=== PATIENT | female | born 1935 | race Caucasian/White ===

== ENCOUNTER 2017-07-25 17:35 | Inpatient (IN) | payer MEDICARE, OTHER ==
[~2017-07-25] VITALS: Ht 170.2 cm; Wt 87.2 kg
[~2017-07-25 17:35] MED LIST: ALENDRONATE SOD70 M1 PO; ALLOPURINOL100 MG PO; AMIODARONE HCL200 MG PO; AMIODARONE200 MG PO; AMLODIPINE BES2.5 MG PO; AMLODIPINE BESYL5 MG PO; AMOXICILLIN500 MG PO; APRESOLINE25 MG PO; ASCRIPTIN1 TA1; ASPIRIN81 M1 PO; B-COMPLEX1 CAP PO; CATAPRES0.1 MG PO; CLONIDINE0.2 MG PO; COREG12.5 MG PO; COUMADIN1 M1 PO; COUMADIN1 MG PO; COUMADIN2 MG PO; Carafate1 GM PO; Coumadin2 MG PO; DILTIAZEM HCL360 MG PO; DIOVAN320 MG PO; DOXYCYCLINE100 M2 PO; DOXYCYCLINE100 M3 PO; DUONEB 3 MG/3 ML3 M1 INH; EVISTA60 MG PO; FAMOTIDINE20 M1 PO; FEOSOL325 MG PO; FOSAMAX70 M1 PO; FUROSEMIDE40 MG PO; HYDRALAZINE HYD50 MG PO; IMDUR30 MG PO; ISOSORBIDE30 MG PO; KEFLEX500 MG PO; LASIX20 MG PO; LASIX40 MG PO; LEVAQUIN750 M1 PO; LISINOPRIL10 M1 PO; LISINOPRIL20 MG PO; LOPRESSOR50 MG PO; METOPROLOL SUCC50 M2 PO; NORVASC10 MG PO; NORVASC5 MG PO; Ondansetron4 MG PO; PRAVACHOL40 MG PO; PRAVASTATIN SOD80 MG PO; PREDNISONE10 MG PO; PREDNISONE20 MG PO; PROTONIX TR40 M1 PO; PROTONIX40 MG PO; ROBITUSSIN AC 110 ML PO; SUPER B COMPLE150 MG PO; SUPER B COMPLEX1 CAP PO; SUPER B-50 COM1 EAC1 PO; TOPROL XL50 MG PO; TOPROL-XL50 MG; TUMS PO; VITAMIN D PO; VITAMIN D-32000 UNI1 PO; VITAMIN D1000 IU PO; VITAMIN D2000 IU PO; WARFARIN2 MG PO; XANAX0.25 MG PO; ZESTRIL20 MG PO; ZOLOFT25 MG PO; ZYLOPRIM100 MG; [UNRECOGNIZED DRUG - OTHER]
[2017-07-25 17:55] VITALS: BP 185/75
[2017-07-25 18:03] LABS: BASO % 0.3 % (0.0-1.0); EOS # 0.1 10*3/uL (0.0-0.4); EOS % 1.4 % (1.0-4.0); HEMATOCRIT 35.2 % (37.0-47.0); HEMOGLOBIN 11.1 g/dl (12.0-16.0); LYMPH # 1.6 10*3/uL (1.3-4.4); LYMPH % 22.2 % (27.0-41.0); MEAN CELL VOLUME 94.4 fl (81.0-99.0); MEAN CORPUSCULAR HGB 29.8 pg (27.0-31.0); MEAN CORPUSCULAR HGB CONC 31.5 g/dl (33.0-37.0); MEAN PLATELET VOLUME 10.5 fl (9.6-12.3); MONO # 0.5 10*3/uL (0.1-1.0); MONO % 7.1 % (3.0-9.0); NEUT # 4.9 10*3/uL (2.3-7.9); NEUT % 68.4 % (47.0-73.0); PLATELET COUNT AUTOMATED 131 10*3/uL (130-400); RED BLOOD COUNT 3.73 10*6/uL (4.10-5.10); RED CELL DISTRI WIDTH 14.1 % (0-14.5); WHITE BLOOD COUNT 7.1 10*3/uL (4.8-10.8)
[2017-07-25 18:12] LABS: ACT PARTIAL THROMBO TIME 26.6 SECONDS (20.8-31.5); INTERNATIONAL NORM RATIO 1.3 (2.0-3.5)
[2017-07-25 18:20] VITALS: BP 190/75
[2017-07-25 18:23] LABS: ALBUMIN 3.3 gm/dl (3.1-4.5); CREATININE 1.34 mg/dL (0.55-1.02)
[2017-07-25 18:30] VITALS: BP 206/77
[2017-07-25 18:34] LABS: TOTAL PROTEIN 7.1 gm/dL (6.4-8.2); TROPONIN I 0.017 ng/ml (<0.045)
[2017-07-25 20:00] VITALS: BP 184/66
--- NOTE | 2017-07-25 20:00 | NUR ---
A 81, admitted to , under the services of ROBBIE Butcher DO with a diagnosis of CHEST PAIN W/ HIGH RISK FOR CARDIAC ETIOLOGY. Chief complaint is CHEST PAIN. Patient arrived via stretcher from ER. Monitor applied. Initial assessment completed. Vital signs taken and recorded. ROBBIE BUTCHER DO notified of admission to the unit. Orders received. See assessment for past medical history, medications and allergies. Patient and/or family oriented to unit. [facility] visitation policy reviewed. Clothing/patient valuable form completed. MEDICATIONS RECONCILLED VIA LIST PROVIDED BY PATIENT GONZALO LEMONS
--- NOTE | 2017-07-25 21:05 | NUR ---
DR. OROZCO CONTACTED IN REGARDS TO CRITICAL TROPONIN LEVEL.
--- NOTE | 2017-07-25 21:17 | NUR ---
DR. MUNSON CONTACTED IN REGARDS TO CARDIOLOGY CONSULT, SEE NEW ORDERS.
--- NOTE | 2017-07-25 22:35 | NUR ---
DR. SUE SERVICES CONTACTED FOR DR. MUNSON, AWAITING CALL BACK.
[2017-07-26] VITALS: BP 154/63
--- NOTE | 2017-07-26 00:38 | NUR ---
MESSAGE LEFT ON DR. MUNSON'S CELL PHONE, AWAITING CALL BACK.
--- NOTE | 2017-07-26 00:38 | NUR ---
DR. MUNSON ATTEMPTED TO BE CONTACTED AGAIN IN REGARDS TO CRITICAL TROPONIN LEVEL AND WEATHER OR NOT TO START HEPARIN DRIP, NO ANSWER. ANSWERING SERVICE STATED THAT WHEN THEY GET A HOLD OF HIM THEY WILL HAVE HIM CONTACT HOSPITAL.
--- NOTE | 2017-07-26 00:40 | NUR ---
DR. OROZCO CONTACTED IN REGARDS TO DR. MUNSON NOT ANSWERING AND CRITICAL TROPONIN OF 2.470, ORDERED TO START HEPARIN DRIP.
[2017-07-26 01:02] LABS: BASO % 0.4 % (0.0-1.0); EOS # 0.1 10*3/uL (0.0-0.4); EOS % 1.2 % (1.0-4.0); HEMATOCRIT 31.2 % (37.0-47.0); HEMOGLOBIN 9.9 g/dl (12.0-16.0); LYMPH # 1.6 10*3/uL (1.3-4.4); LYMPH % 22.2 % (27.0-41.0); MEAN CELL VOLUME 94.8 fl (81.0-99.0); MEAN CORPUSCULAR HGB 30.1 pg (27.0-31.0); MEAN CORPUSCULAR HGB CONC 31.7 g/dl (33.0-37.0); MEAN PLATELET VOLUME 10.8 fl (9.6-12.3); MONO # 0.5 10*3/uL (0.1-1.0); MONO % 7.2 % (3.0-9.0); NEUT % 68.7 % (47.0-73.0); PLATELET COUNT AUTOMATED 141 10*3/uL (130-400); RED BLOOD COUNT 3.29 10*6/uL (4.10-5.10); RED CELL DISTRI WIDTH 14.1 % (0-14.5); WHITE BLOOD COUNT 7.3 10*3/uL (4.8-10.8)
--- NOTE | 2017-07-26 01:07 | NUR ---
DR. MUNSON CALLED BACK AND MADE AWARE OF CRITICAL TROPONIN LEVELS, AND WEATHER OR NOT TO START HEPARIN DRIP. DR. MUNSON AGREES TO HEPARIN DRIP, NO NEW ORDERS.
[2017-07-26 01:13] LABS: ACT PARTIAL THROMBO TIME 27.7 SECONDS (20.8-31.5); INTERNATIONAL NORM RATIO 1.4 (2.0-3.5)
--- NOTE | 2017-07-26 04:28 | NUR ---
DR. MNUSON CONTACTED IN REGARDS TO CRITICAL TROPONIN LEVEL OF 3.240
[2017-07-26 06:54] LABS: BASO % 0.5 % (0.0-1.0); EOS # 0.1 10*3/uL (0.0-0.4); EOS % 1.5 % (1.0-4.0); HEMATOCRIT 29.9 % (37.0-47.0); HEMOGLOBIN 9.6 g/dl (12.0-16.0); LYMPH # 1.4 10*3/uL (1.3-4.4); LYMPH % 21.2 % (27.0-41.0); MEAN CELL VOLUME 93.7 fl (81.0-99.0); MEAN CORPUSCULAR HGB 30.1 pg (27.0-31.0); MEAN CORPUSCULAR HGB CONC 32.1 g/dl (33.0-37.0); MEAN PLATELET VOLUME 11.4 fl (9.6-12.3); MONO # 0.5 10*3/uL (0.1-1.0); MONO % 6.9 % (3.0-9.0); NEUT # 4.6 10*3/uL (2.3-7.9); NEUT % 69.4 % (47.0-73.0); PLATELET COUNT AUTOMATED 144 10*3/uL (130-400); RED BLOOD COUNT 3.19 10*6/uL (4.10-5.10); RED CELL DISTRI WIDTH 13.9 % (0-14.5); WHITE BLOOD COUNT 6.6 10*3/uL (4.8-10.8)
[2017-07-26 07:24] LABS: ALBUMIN 2.8 gm/dl (3.1-4.5); CREATININE 1.32 mg/dL (0.55-1.02); PHOSPHOROUS 3.2 mg/dL (2.5-4.9); POTASSIUM 3.9 mmol/L (3.5-5.1); TOTAL PROTEIN 6.2 gm/dL (6.4-8.2)
[2017-07-26 07:25] LABS: INTERNATIONAL NORM RATIO 1.4 (2.0-3.5)
[2017-07-26 07:30] LABS: FREE T4 1.52 ng/dl (0.76-1.46); THYROID STIM HORMONE (HS) 1.34 uIU/ml (0.358-4.75)
[2017-07-26 08:30] LABS: VITAMIN D, 25-HYDROXY 33.4 ng/mL (30-100)
== END 2017-07-26 06:55 | disposition short-term general hospital (02) | DRG 281 ==
LOC: ED 17:35 → EDHOLD 18:38 → 5E 18:38
PROVIDERS: Emergency Medicine; Family Medicine; ADMIT Emergency Medicine
DX: I21.4 Non-ST elevation (NSTEMI) myocardial infarction (principal); I13.2 Hypertensive heart and chronic kidney disease with heart failure and with stage 5 chronic kidney disease, or end stage renal disease; D68.59 Other primary thrombophilia; Z99.81 Dependence on supplemental oxygen; I48.0 Paroxysmal atrial fibrillation; N18.3 Chronic kidney disease, stage 3 (moderate); E83.41 Hypermagnesemia; I50.32 Chronic diastolic (congestive) heart failure; J44.9 Chronic obstructive pulmonary disease, unspecified; R27.0 Ataxia, unspecified; E78.5 Hyperlipidemia, unspecified; K21.9 Gastro-esophageal reflux disease without esophagitis; M1A.9XX0 Chronic gout, unspecified, without tophus (tophi); G47.33 Obstructive sleep apnea (adult) (pediatric); D64.9 Anemia, unspecified; M19.91 Primary osteoarthritis, unspecified site; F32.9 Major depressive disorder, single episode, unspecified; Z96.1 Presence of intraocular lens; M81.0 Age-related osteoporosis without current pathological fracture; Z51.5 Encounter for palliative care; Z66 Do not resuscitate; Z87.01 Personal history of pneumonia (recurrent); Z86.718 Personal history of other venous thrombosis and embolism; Z88.8 Allergy status to other drugs, medicaments and biological substances; Z79.899 Other long term (current) drug therapy; Z79.82 Long term (current) use of aspirin; Z90.49 Acquired absence of other specified parts of digestive tract; Z98.42 Cataract extraction status, left eye; Z98.41 Cataract extraction status, right eye; Z80.8 Family history of malignant neoplasm of other organs or systems; Z82.49 Family history of ischemic heart disease and other diseases of the circulatory system; Z83.3 Family history of diabetes mellitus; Z79.01 Long term (current) use of anticoagulants

== ENCOUNTER → 2017-09-11 | Outpatient (CLI) | payer MEDICARE, OTHER ==
[2017-09-11 11:04] LABS: ALBUMIN 3.2 gm/dl (3.1-4.5); CREATININE 1.38 mg/dL (0.55-1.02); POTASSIUM 4.2 mmol/L (3.5-5.1); TOTAL PROTEIN 6.7 gm/dL (6.4-8.2)
[2017-09-11 11:11] LABS: THYROID STIM HORMONE (HS) 1.6 uIU/ml (0.358-4.75)
== END | disposition home or self-care (01) ==
LOC: LAB 10:03
PROVIDERS: Internal Medicine Cardiovascular Disease
DX: Z51.81 Encounter for therapeutic drug level monitoring (principal); Z79.899 Other long term (current) drug therapy

== ENCOUNTER → 2017-10-10 | Outpatient (CLI) | payer MEDICARE, OTHER ==
--- NOTE | ~2017-10-10 | PF ---
[place], [place] PULMONARY FUNCTION TEST NAME: [facility] OWENS [facility] [id number] UNIT #: [id number] ROOM: DOCTOR: CHUCK SAUCEDA MD,DELILAH BIRTHDATE: [birth year] DOS: 10/11/2017 The testing was done by Dr. Salvatore Samuels. The test was done on 10/11/2017. HISTORY: The patient recorded 81-year-old female, height of 67 inches, weight 195 pounds. Testing was done for assessment of the long-term amiodarone use. The patient reported symptoms of dyspnea with exertion with productive cough. SPIROMETRY: The FVC was recorded as 1.10 liters at 38% predicted value, severely decreased. The FEV1 recorded at 0.87 liters, 40% predicted value, severely decreased 60% partial improvement occurred in postbronchodilator FEV1. Ratio of FEV1/FVC was recorded as 78%. The flow volume loop was suggestive of mild obstructive lung disease and restrictive lung disease was also suspected. The lung diffusion recorded at 28%, which was severely decreased. Lung volumes could not be performed by the patient. FINAL IMPRESSION: 1. The patient with severe reduction of the lung diffusion. Correlated to the patient's clinical history for any interstitial lung disease or other restrictive lung diseases for this patient or any parenchymal damage. 2. Mild reversible obstructive lung disease was also suspected for this patient as well such as bronchial asthma. DELILAH WOODS MD CM:PFREPORT:PULMONARY FUNCTION TEST 1028 1529 DELILAH SAUCEDA MD
== END | disposition home or self-care (01) ==
LOC: CP 12:11
DX: Z79.899 Other long term (current) drug therapy (principal)

== ENCOUNTER 2017-10-14 18:45 | Inpatient (IN) | payer MEDICARE, OTHER ==
[~2017-10-14] VITALS: Ht 170.1 cm; Wt 87.2 kg
[2017-10-14 18:49] VITALS: BP 200/87
[2017-10-14 19:17] LABS: BASO % 0.1 % (0.0-1.0); EOS % 0.4 % (1.0-4.0); HEMATOCRIT 33.2 % (37.0-47.0); HEMOGLOBIN 10.3 g/dl (12.0-16.0); LYMPH # 0.8 10*3/uL (1.3-4.4); LYMPH % 11.5 % (27.0-41.0); MEAN CORPUSCULAR HGB 28.9 pg (27.0-31.0); MEAN PLATELET VOLUME 10.6 fl (9.6-12.3); MONO # 0.4 10*3/uL (0.1-1.0); MONO % 5.9 % (3.0-9.0); NEUT # 5.5 10*3/uL (2.3-7.9); NEUT % 81.7 % (47.0-73.0); PLATELET COUNT AUTOMATED 142 10*3/uL (130-400); RED BLOOD COUNT 3.57 10*6/uL (4.10-5.10); WHITE BLOOD COUNT 6.8 10*3/uL (4.8-10.8)
[2017-10-14 19:34] LABS: ALBUMIN 3.3 gm/dl (3.1-4.5); CREATININE 1.5 mg/dL (0.55-1.02); POTASSIUM 4.5 mmol/L (3.5-5.1); TOTAL PROTEIN 6.8 gm/dL (6.4-8.2)
[2017-10-14 19:35] VITALS: BP 117/85
[2017-10-14 20:10] VITALS: BP 147/63
[2017-10-14 21:23] VITALS: BP 161/51
[2017-10-14 22:00] VITALS: BP 162/62
[2017-10-14 22:10] VITALS: BP 162/62
[2017-10-14] MEDS ORDERED: POTASSIUM CHLO10 ME5 PO (22:21)
[2017-10-14] MEDS ORDERED: TOPROL XL25 MG PO (22:22)
[2017-10-14] MEDS ORDERED: PLAVIX75 M1 PO (22:22)
[2017-10-14 22:40] LABS: INTERNATIONAL NORM RATIO 3.2 (2.0-3.5)
[2017-10-15] VITALS: BP 131/52
[2017-10-15 06:01] LABS: BASO % 0.4 % (0.0-1.0); EOS # 0.2 10*3/uL (0.0-0.4); HEMATOCRIT 30.6 % (37.0-47.0); HEMOGLOBIN 9.3 g/dl (12.0-16.0); LYMPH # 1.3 10*3/uL (1.3-4.4); LYMPH % 23.4 % (27.0-41.0); MEAN CELL VOLUME 93.9 fl (81.0-99.0); MEAN CORPUSCULAR HGB 28.5 pg (27.0-31.0); MEAN CORPUSCULAR HGB CONC 30.4 g/dl (33.0-37.0); MEAN PLATELET VOLUME 10.9 fl (9.6-12.3); MONO # 0.5 10*3/uL (0.1-1.0); MONO % 8.6 % (3.0-9.0); NEUT # 3.6 10*3/uL (2.3-7.9); NEUT % 64.2 % (47.0-73.0); PLATELET COUNT AUTOMATED 122 10*3/uL (130-400); RED BLOOD COUNT 3.26 10*6/uL (4.10-5.10); RED CELL DISTRI WIDTH 15.3 % (0-14.5); WHITE BLOOD COUNT 5.6 10*3/uL (4.8-10.8)
[2017-10-15 06:14] LABS: ALBUMIN 2.9 gm/dl (3.1-4.5); CREATININE 1.23 mg/dL (0.55-1.02); PHOSPHOROUS 3.4 mg/dL (2.5-4.9)
[2017-10-15 06:22] LABS: THYROID STIM HORMONE (HS) 0.899 uIU/ml (0.358-4.75)
[2017-10-15 06:26] LABS: INTERNATIONAL NORM RATIO 3.3 (2.0-3.5)
[2017-10-15 07:29] LABS: VITAMIN D, 25-HYDROXY 31.7 ng/mL (30-100)
[2017-10-15 08:00] VITALS: BP 144/53
[2017-10-15 12:00] VITALS: BP 155/50
[2017-10-15 16:00] VITALS: BP 147/63
[2017-10-15 20:00] VITALS: BP 118/48
[2017-10-16] VITALS: BP 153/57
[2017-10-16 07:30] LABS: BASO % 0.5 % (0.0-1.0); EOS # 0.2 10*3/uL (0.0-0.4); EOS % 2.5 % (1.0-4.0); HEMATOCRIT 32.3 % (37.0-47.0); HEMOGLOBIN 9.9 g/dl (12.0-16.0); LYMPH # 0.9 10*3/uL (1.3-4.4); LYMPH % 13.4 % (27.0-41.0); MEAN CELL VOLUME 95.3 fl (81.0-99.0); MEAN CORPUSCULAR HGB 29.2 pg (27.0-31.0); MEAN CORPUSCULAR HGB CONC 30.7 g/dl (33.0-37.0); MEAN PLATELET VOLUME 11.4 fl (9.6-12.3); MONO # 0.5 10*3/uL (0.1-1.0); MONO % 7.3 % (3.0-9.0); NEUT # 4.9 10*3/uL (2.3-7.9); PLATELET COUNT AUTOMATED 132 10*3/uL (130-400); RED BLOOD COUNT 3.39 10*6/uL (4.10-5.10); RED CELL DISTRI WIDTH 15.3 % (0-14.5); WHITE BLOOD COUNT 6.4 10*3/uL (4.8-10.8)
[2017-10-16 07:40] LABS: POTASSIUM 3.9 mmol/L (3.5-5.1)
[2017-10-16 07:52] LABS: ALBUMIN 2.9 gm/dl (3.1-4.5); CREATININE 1.35 mg/dL (0.55-1.02); TOTAL PROTEIN 6.4 gm/dL (6.4-8.2)
[2017-10-16 08:00] VITALS: BP 120/50; BP 156/55
[2017-10-16 12:00] VITALS: BP 143/47
[2017-10-16 16:00] VITALS: BP 139/55
[2017-10-16 20:05] VITALS: BP 110/44
[2017-10-17 00:02] VITALS: BP 115/58
[2017-10-17 00:13] VITALS: BP 139/50
[2017-10-17 08:00] VITALS: BP 160/98
[2017-10-17 12:00] VITALS: BP 149/56
[2017-10-17 12:02] LABS: INTERNATIONAL NORM RATIO 2.8 (2.0-3.5)
[2017-10-17 16:00] VITALS: BP 130/79
[2017-10-17 20:00] VITALS: BP 154/56
[2017-10-18] VITALS: BP 126/66
[2017-10-18 08:00] VITALS: BP 136/76
[2017-10-18 12:00] VITALS: BP 145/56
[2017-10-18 12:16] LABS: INTERNATIONAL NORM RATIO 2.2 (2.0-3.5)
[2017-10-18 16:00] VITALS: BP 125/62
[2017-10-18 17:00] VITALS: BP 124/64
[2017-10-18 20:00] VITALS: BP 125/52
[2017-10-19] VITALS: BP 125/54
[2017-10-19 08:00] VITALS: BP 162/66
[2017-10-19 12:00] VITALS: BP 126/48
[2017-10-19 14:00] VITALS: BP 118/48
[2017-10-19 20:00] VITALS: BP 138/55
[2017-10-20 06:57] LABS: INTERNATIONAL NORM RATIO 2.1 (2.0-3.5)
[2017-10-20 08:00] VITALS: BP 169/61
[2017-10-20 12:00] VITALS: BP 113/52; BP 145/52
[2017-10-20 16:00] VITALS: BP 144/60
[2017-10-20 20:00] VITALS: BP 131/50
[2017-10-21] VITALS: BP 151/61
[2017-10-21 07:26] LABS: INTERNATIONAL NORM RATIO 2.1 (2.0-3.5)
== END 2017-10-21 14:58 | disposition home health service (06) | DRG 552 ==
LOC: ED 18:45 → 5E 21:31 → EDHOLD 21:31 → 5E 21:45
PROVIDERS: Emergency Medicine Emergency Medical Services; Internal Medicine
DX: S32.020A Wedge compression fracture of second lumbar vertebra, initial encounter for closed fracture (principal); J96.11 Chronic respiratory failure with hypoxia; D68.59 Other primary thrombophilia; I48.0 Paroxysmal atrial fibrillation; E44.1 Mild protein-calorie malnutrition; N18.3 Chronic kidney disease, stage 3 (moderate); I13.0 Hypertensive heart and chronic kidney disease with heart failure and stage 1 through stage 4 chronic kidney disease, or unspecified chronic kidney disease; I50.32 Chronic diastolic (congestive) heart failure; M80.00XA Age-related osteoporosis with current pathological fracture, unspecified site, initial encounter for fracture; Z99.81 Dependence on supplemental oxygen; J43.9 Emphysema, unspecified; I16.0 Hypertensive urgency; R27.0 Ataxia, unspecified; K22.5 Diverticulum of esophagus, acquired; D64.9 Anemia, unspecified; Z66 Do not resuscitate; Z51.5 Encounter for palliative care; R73.9 Hyperglycemia, unspecified; R74.0 Nonspecific elevation of levels of transaminase and lactic acid dehydrogenase [LDH]; K21.9 Gastro-esophageal reflux disease without esophagitis; M19.90 Unspecified osteoarthritis, unspecified site; G47.33 Obstructive sleep apnea (adult) (pediatric); M10.9 Gout, unspecified; E78.5 Hyperlipidemia, unspecified; Z96.1 Presence of intraocular lens; I25.2 Old myocardial infarction; Z86.718 Personal history of other venous thrombosis and embolism; Z79.01 Long term (current) use of anticoagulants; Z79.82 Long term (current) use of aspirin; Z79.899 Other long term (current) drug therapy; Z98.42 Cataract extraction status, left eye; Z98.41 Cataract extraction status, right eye; Z68.31 Body mass index [BMI] 31.0-31.9, adult; X50.0XXA Overexertion from strenuous movement or load, initial encounter; Y93.89 Activity, other specified; Y92.091 Bathroom in other non-institutional residence as the place of occurrence of the external cause; Y99.8 Other external cause status; Z90.49 Acquired absence of other specified parts of digestive tract; Z88.8 Allergy status to other drugs, medicaments and biological substances; Z83.3 Family history of diabetes mellitus; Z82.49 Family history of ischemic heart disease and other diseases of the circulatory system; Z80.8 Family history of malignant neoplasm of other organs or systems

== ENCOUNTER → 2017-10-27 | Day surgery (SDC) | payer MEDICARE, OTHER ==
[2017-10-27] VITALS (12 sets, daily range): BP systolic 115–191; BP diastolic 55–90
[~2017-10-27] MED LIST changes: +PLAVIX75 M1 PO; +POTASSIUM CHLO10 ME5 PO; +TOPROL XL25 MG PO
[2017-10-27 07:44] LABS: HEMATOCRIT 32.9 % (37.0-47.0); HEMOGLOBIN 10.2 g/dl (12.0-16.0); MEAN CELL VOLUME 93.7 fl (81.0-99.0); MEAN CORPUSCULAR HGB 29.1 pg (27.0-31.0); MEAN PLATELET VOLUME 11.7 fl (9.6-12.3); RED BLOOD COUNT 3.51 10*6/uL (4.10-5.10); RED CELL DISTRI WIDTH 15.2 % (0-14.5); WHITE BLOOD COUNT 5.4 10*3/uL (4.8-10.8)
[2017-10-27 07:57] LABS: ACT PARTIAL THROMBO TIME 22.3 SECONDS (20.8-31.5); INTERNATIONAL NORM RATIO 1.2 (2.0-3.5)
== END | disposition home or self-care (01) ==
LOC: SDC 10-23 12:30 → EDSTATUS 10-23 12:30 → SDC 04:18
PROVIDERS: Internal Medicine Hospice and Palliative Medicine
DX: M48.56XA Collapsed vertebra, not elsewhere classified, lumbar region, initial encounter for fracture (principal); M81.0 Age-related osteoporosis without current pathological fracture; I48.2 Chronic atrial fibrillation; I25.10 Atherosclerotic heart disease of native coronary artery without angina pectoris; J44.9 Chronic obstructive pulmonary disease, unspecified; I11.0 Hypertensive heart disease with heart failure; I50.9 Heart failure, unspecified

== ENCOUNTER 2018-06-15 10:18 | Inpatient (IN) | payer MEDICARE, OTHER ==
[2018-06-15] VITALS (7 sets, daily range): BP systolic 118–160; BP diastolic 47–62
[~2018-06-15] VITALS: Ht 170.2 cm; Wt 80.9 kg
--- NOTE | ~2018-06-15 | EKG ---
[place], [place] ELECTROCARDIOGRAM REPORT NAME: ROCKY OWENS UNIT #: [id number] ROOM: 530 DOCTOR: CAREN DRAFT REPORT BIRTHDATE: [birth year] [facility] Test Date: 2018-06-16 Test Time: 11:58:52 Pat Name: ROCKY OWENS Department: Room: [facility] 1 Gender: F Tabulating Clerk: Christel Tejada : 1935 Requested By: ROSAS HUANG Order Number: [id number] Reading MD: Willi Morris MD Measurements Intervals [place] Rate: 69 P: -38 [place]: 183 QRS: -29 QRSD: 89 T: 49 QT: 423 QTc: 454 Interpretive Statements Sinus rhythm Borderline left axis deviation Baseline wander in lead(s) II,III,aVF Compared to ECG 06/16/2018 09:08:43 No significant changes Electronically Signed On 06-16-2018 10:07:38 PST by Willi Morris MD CM:EKGRPT:ELECTROCARDIOGRAM REPORT 1158 1007 ROSAS BEVERLY DRAFT REPORT ROSAS HUANG DO
--- NOTE | ~2018-06-15 | CON ---
[place], [place] REPORT OF CONSULTATION NAME: [facility]OCKY OWENS [facility] [id number] UNIT #: [id number] ROOM: 530 DOCTOR: BARBARA FELIPE MD BIRTHDATE: [birth year] DOS: 06/17/2018 HISTORY OF PRESENT ILLNESS: This is an 82-year-old [place] woman with history of coronary artery disease over a xghw-suh-[id number]-half ago, she had coronary stenting done. She also has significant aortic stenosis and carries a diagnosis of chronic kidney disease, dyslipidemia, GERD, essential hypertension, hypercoagulable state, chronic anemia; had NSTEMI, 1 stent was deployed; sleep apnea and uses oxygen at home. She also has osteoporosis, osteoarthritis and has Zenker's diverticulum. She has had a cholecystectomy and cataract surgery with lens implantation. She was admitted to the hospital 2 days ago because of right flank pain and some dizziness. She was seen by Dr. White, and I was asked to see her because her troponin level had been slightly increased. The patient has had anterior chest pressure and heaviness for about 2 months; she gets this when she is walking around in the house, and when she does have some weight loss physician she gets very short of breath, she has to sit down to ease her breathing and also to ease her chest heaviness. She has not had this feeling when she is just sitting, doing nothing. There have not been any palpitations. She had mild swelling in the legs and no orthopnea, no loss of consciousness. REVIEW OF SYSTEMS: No fever, chills or shivering. No cough. She has not noticed any blood in the stool, although I believe she had some hematuria at 1 time. HOME MEDICATIONS: Included Fosamax, amiodarone 200 mg daily, amlodipine 5 mg daily, aspirin 81 daily, clopidogrel 75 mg daily, furosemide 20 mg daily, hydralazine 25 mg b.i.d., Imdur 60 mg q.a.m., potassium chloride 10 mEq daily, pravastatin 40 daily, sertraline 25 mg daily, warfarin 2 mg alternating with 3 mg daily. SOCIAL HISTORY: She has never smoked cigarettes. No alcohol use. PHYSICAL EXAMINATION: GENERAL: A patient who is tall alert, oriented. She is comfortable. Her complexion is fine. VITAL SIGNS: Pulse is 76 and regular, blood pressure 159/52. NECK: JVP is normal. Systolic sounds in the neck are audible. CARDIOVASCULAR: There is no parasternal heave. Auscultation reveals grade 5/6 mid-to-late peaking systolic murmur over the aortic area and even a harsher murmur over the apex, which does not radiate laterally. A2 is audible, but diminished significantly in intensity. EXTREMITIES: She has no edema in lower extremities now. RESPIRATORY: She is not tachypneic. Percussion note is normal. Auscultation reveals moderately reduced breath sounds with lot of crackles in both lungs. ABDOMEN: This is vaguely tender in the lower part, but bowel sounds are normal. There is no guarding. [place], [place] REPORT OF CONSULTATION NAME: ROCKY OWENS UNIT #: [id number] ROOM: [facility] DOCTOR: BARBARA FELIPE MD BIRTHDATE: [birth year] IMAGING: ECG showed normal sinus rhythm with moderate left axis deviation. Mild ST segment depression in some chest leads. LABORATORY DATA: Troponin I level was 0.02 on admission and had gone up to 0.287, and has declined to 0.14. Hemoglobin 8 grams. BUN 25, creatinine 1.09. Potassium is 3.8. IMPRESSION AND PLAN: 1. Non-ST elevation acute myocardial infarction is highly likely in this patient with known coronary artery disease. She has had angina and exertional dyspnea for the last 2 months, and I strongly recommend a diagnostic heart cath and selective coronary angiogram. I discussed the procedure with her. I pointed out the risks and the benefits including CVA, IA, , hematoma, vascular injury, renal insufficiency. She and son understand, and would like to proceed. 2. Aortic stenosis is probably moderate to severe. Transthoracic echocardiogram will be done to quantitate the severity. 3. Moderate anemia is present. I discussed this with the resident, and the patient will be transferred to [facility] tomorrow morning for heart cath and possible PCI. I thank you for this consult. BARBARA FELIPE MD CM:CONSTR:REPORT OF CONSULTATION 1808 06/19/18 0619 interface
--- NOTE | ~2018-06-15 | EKG ---
[place], [place] ELECTROCARDIOGRAM REPORT NAME: ROCKY OWENS UNIT #: [id number] ROOM: 530 DOCTOR: CAREN DRAFT REPORT BIRTHDATE: [birth year] [facility] Test Date: 2018-06-16 Test Time: 09:08:43 Pat Name: ROCKY OWENS Department: Room: [facility] 1 Gender: F Manager Animal: Christel Tejada : 1935 Requested By: ROSAS HUANG Order Number: [id number] Reading MD: Willi Morris MD Measurements Intervals [place] Rate: 71 P: -13 [place]: 198 QRS: -23 QRSD: 90 T: 61 QT: 426 QTc: 463 Interpretive Statements Sinus rhythm Borderline left axis deviation Compared to ECG 06/15/2018 10:47:11 Left ventricular hypertrophy no longer present Electronically Signed On 06-16-2018 8:13:58 PST by Willi Morris MD CM:EKGRPT:ELECTROCARDIOGRAM REPORT 7 ROSAS BEVERLY DRAFT REPORT ROSAS HUANG DO
--- NOTE | ~2018-06-15 | EKG ---
[place], [place] ELECTROCARDIOGRAM REPORT NAME: ROCKY OWENS UNIT #: [id number] ROOM: 530 DOCTOR: CAREN DRAFT REPORT BIRTHDATE: [birth year] [facility] Test Date: 2018-06-15 Test Time: 10:47:11 Pat Name: ROCKY OWENS Department: Room: [facility] Gender: F Burlapper: Chelle Malone : 1935 Requested By: ROBBIE HIRSCH Order Number: [id number] Reading MD: Naveed Campos MD Measurements Intervals [place] Rate: 53 P: 12 PA: 182 QRS: -23 QRSD: 94 T: 52 QT: 476 QTc: 447 Interpretive Statements Sinus rhythm Left ventricular hypertrophy No previous ECG available for comparison Electronically Signed On 06-16-2018 4:17:06 PST by Naveed Campos MD CM:EKGRPT:ELECTROCARDIOGRAM REPORT 1047 0417 ROBBIE BEVERLY DRAFT REPORT ROBBIE HIRSCH DO
--- NOTE | ~2018-06-15 | EKG ---
[place], [place] ELECTROCARDIOGRAM REPORT NAME: ROCKY OWENS UNIT #: [id number] ROOM: 530 DOCTOR: CAREN DRAFT REPORT BIRTHDATE: [address] [facility] Test Date: 2018-06-17 Test Time: 04:36:48 Pat Name: ROCKY OWENS Department: 5E Room: [facility] 1 Gender: F Blanking Press Operator: Juan Francisco Chen : 1935 Requested By: BARBARA SAMUELS Order Number: [id number] Reading MD: Barbara Samuels MD Measurements Intervals [place] Rate: 79 P: -14 CT: 209 QRS: -34 QRSD: 95 T: 74 QT: 411 QTc: 472 Interpretive Statements Sinus rhythm Left axis deviation Minimal ST depression, lateral leads Compared to ECG 06/16/2018 11:58:52 ST (T wave) deviation now present Electronically Signed On 06-18-2018 14:34:09 PST by Barbara Samuels MD CM:EKGRPT:ELECTROCARDIOGRAM REPORT 0436 1434 BARBARA SAMUELS MD EPIPHANY DRAFT REPORT BARBARA SAMUELS MD
[2018-06-15 10:50] LABS: BASO % 0.3 % (0.0-1.0); EOS % 0.3 % (1.0-4.0); HEMATOCRIT 23.6 % (37.0-47.0); HEMOGLOBIN 7.3 g/dl (12.0-16.0); LYMPH # 0.7 10*3/uL (1.3-4.4); LYMPH % 9.4 % (27.0-41.0); MEAN CELL VOLUME 95.9 fl (81.0-99.0); MEAN CORPUSCULAR HGB 29.7 pg (27.0-31.0); MEAN CORPUSCULAR HGB CONC 30.9 g/dl (33.0-37.0); MEAN PLATELET VOLUME 10.6 fl (9.6-12.3); MONO # 0.7 10*3/uL (0.1-1.0); MONO % 9.1 % (3.0-9.0); NEUT # 5.9 10*3/uL (2.3-7.9); NEUT % 80.5 % (47.0-73.0); PLATELET COUNT AUTOMATED 132 10*3/uL (130-400); RED BLOOD COUNT 2.46 10*6/uL (4.10-5.10); RED CELL DISTRI WIDTH 15.9 % (0-14.5); WHITE BLOOD COUNT 7.4 10*3/uL (4.8-10.8)
[2018-06-15 11:04] LABS: ALBUMIN 2.8 gm/dl (3.1-4.5); ALKALINE PHOSPHATASE 66 U/L (45-117); BUN 30 mg/dl (7-24); CHLORIDE 106 mmol/L (98-107); LIPASE 113 U/L (73-393); POTASSIUM 4.4 mmol/L (3.5-5.1); SGOT/AST 40 IU/L (3-35); SGPT/ALT 44 U/L (12-78); SODIUM 138 mmol/L (136-145); TOTAL PROTEIN 6.1 gm/dL (6.4-8.2)
[2018-06-15 11:05] LABS: TROPONIN I < 0.015 ng/ml (<0.045)
[2018-06-15 11:12] LABS: BILIRUBIN NEGATIVE (NEGATIVE); BLOOD NEGATIVE (NEGATIVE); CLARITY CLEAR (CLEAR); COLOR YELLOW (YELLOW); GLUCOSE NEGATIVE (NEGATIVE); KETONE NEGATIVE (NEGATIVE); LEUKO ESTERASE TRACE (NEGATIVE); NITRITE NEGATIVE (NEGATIVE); PH 5.5 (5.0-9.0); SPECIFIC GRAVITY 1.025 (1.005-1.030); UROBILINOGEN 0.2 E.U./dl (0.2-1.0)
[2018-06-15 11:43] LABS: BACTERIA 1+; HYALINE CAST 20-25
[2018-06-15] MEDS ORDERED: WARFARIN SODIUM1 MG PO (15:39)
[2018-06-16] VITALS: BP 158/60
[2018-06-16 06:24] LABS: BASO % 0.1 % (0.0-1.0); EOS # 0.1 10*3/uL (0.0-0.4); EOS % 1.9 % (1.0-4.0); HEMOGLOBIN 7.4 g/dl (12.0-16.0); LYMPH % 15.2 % (27.0-41.0); MEAN CELL VOLUME 94.9 fl (81.0-99.0); MEAN CORPUSCULAR HGB 29.2 pg (27.0-31.0); MEAN CORPUSCULAR HGB CONC 30.8 g/dl (33.0-37.0); MEAN PLATELET VOLUME 11.8 fl (9.6-12.3); MONO # 0.7 10*3/uL (0.1-1.0); NEUT # 4.9 10*3/uL (2.3-7.9); NEUT % 72.2 % (47.0-73.0); PLATELET COUNT AUTOMATED 121 10*3/uL (130-400); RED BLOOD COUNT 2.53 10*6/uL (4.10-5.10); RED CELL DISTRI WIDTH 15.5 % (0-14.5); WHITE BLOOD COUNT 6.8 10*3/uL (4.8-10.8)
[2018-06-16 06:32] LABS: INTERNATIONAL NORM RATIO 1.5 (2.0-3.5)
[2018-06-16 06:50] LABS: ALBUMIN 2.7 gm/dl (3.1-4.5); CREATININE 1.09 mg/dL (0.55-1.02); PHOSPHOROUS 2.9 mg/dL (2.5-4.9); POTASSIUM 3.8 mmol/L (3.5-5.1); TOTAL PROTEIN 5.9 gm/dL (6.4-8.2)
[2018-06-16 06:55] LABS: THYROID STIM HORMONE (HS) 0.687 uIU/ml (0.358-4.75)
[2018-06-16 07:46] LABS: VITAMIN D, 25-HYDROXY 20.7 ng/mL (30-100)
[2018-06-16 08:00] VITALS: BP 149/46
[2018-06-16 16:00] VITALS: BP 152/45
[2018-06-16 20:00] VITALS: BP 154/53
[2018-06-17] VITALS: BP 169/54
[2018-06-17 04:45] LABS: BASO % 0.6 % (0.0-1.0); EOS # 0.2 10*3/uL (0.0-0.4); EOS % 3.3 % (1.0-4.0); HEMATOCRIT 25.6 % (37.0-47.0); LYMPH # 1.2 10*3/uL (1.3-4.4); LYMPH % 16.6 % (27.0-41.0); MEAN CELL VOLUME 95.2 fl (81.0-99.0); MEAN CORPUSCULAR HGB 29.7 pg (27.0-31.0); MEAN CORPUSCULAR HGB CONC 31.3 g/dl (33.0-37.0); MEAN PLATELET VOLUME 10.6 fl (9.6-12.3); MONO # 0.6 10*3/uL (0.1-1.0); MONO % 8.9 % (3.0-9.0); PLATELET COUNT AUTOMATED 138 10*3/uL (130-400); RED BLOOD COUNT 2.69 10*6/uL (4.10-5.10); RED CELL DISTRI WIDTH 15.6 % (0-14.5); WHITE BLOOD COUNT 7.1 10*3/uL (4.8-10.8)
[2018-06-17 04:53] LABS: INTERNATIONAL NORM RATIO 1.2 (2.0-3.5)
[2018-06-17 08:17] VITALS: BP 148/70
[2018-06-17 12:00] VITALS: BP 159/54
[2018-06-17 16:00] VITALS: BP 166/76
[2018-06-17 20:00] VITALS: BP 159/54
[2018-06-18] VITALS: BP 160/60
[2018-06-18 08:00] VITALS: BP 158/82
[2018-06-18 12:00] VITALS: BP 141/59
[2018-06-18 16:00] VITALS: BP 159/52
[2018-06-18] MEDS ORDERED: NATURE'S BLEND F1 MG PO (18:01)
[2018-06-18] MEDS ORDERED: MIRALAX POWDER17 G1 PO (18:01)
[2018-06-18] MEDS ORDERED: VITAMIN D5000 UNI1 PO (18:01)
[2018-06-18 20:00] VITALS: BP 134/43; BP 140/48
[2018-06-19] VITALS: BP 175/58
[2018-07-10] MEDS ORDERED: NYSTOP60 GM T (14:36)
[2018-07-10] MEDS ORDERED: FAMOTIDINE40 MG PO (14:36)
== END 2018-06-19 07:24 | disposition short-term general hospital (02) | DRG 280 ==
LOC: ED 10:18 → 5E 13:39 → EDHOLD 13:39 → 5E 13:40
PROVIDERS: Emergency Medicine; Internal Medicine; Student in an Organized Health Care Education/Training Program
PROC: 30233N1 Transfusion of Nonautologous Red Blood Cells into Peripheral Vein, Percutaneous Approach (ICD-10-PCS; principal; 2018-06-15)
PROC: 30233L1 Transfusion of Nonautologous Fresh Plasma into Peripheral Vein, Percutaneous Approach (ICD-10-PCS; principal; 2018-06-15)
PROC: 30233K1 Transfusion of Nonautologous Frozen Plasma into Peripheral Vein, Percutaneous Approach (ICD-10-PCS; principal; 2018-06-15)
DX: I21.4 Non-ST elevation (NSTEMI) myocardial infarction (principal); N17.0 Acute kidney failure with tubular necrosis; D62 Acute posthemorrhagic anemia; D68.9 Coagulation defect, unspecified; I13.0 Hypertensive heart and chronic kidney disease with heart failure and stage 1 through stage 4 chronic kidney disease, or unspecified chronic kidney disease; I50.30 Unspecified diastolic (congestive) heart failure; J96.10 Chronic respiratory failure, unspecified whether with hypoxia or hypercapnia; R58 Hemorrhage, not elsewhere classified; I35.0 Nonrheumatic aortic (valve) stenosis; R00.1 Bradycardia, unspecified; G47.33 Obstructive sleep apnea (adult) (pediatric); N20.0 Calculus of kidney; R73.9 Hyperglycemia, unspecified; I48.0 Paroxysmal atrial fibrillation; Z66 Do not resuscitate; Z51.5 Encounter for palliative care; M19.90 Unspecified osteoarthritis, unspecified site; N94.89 Other specified conditions associated with female genital organs and menstrual cycle; I25.119 Atherosclerotic heart disease of native coronary artery with unspecified angina pectoris; M81.0 Age-related osteoporosis without current pathological fracture; E78.5 Hyperlipidemia, unspecified; K21.9 Gastro-esophageal reflux disease without esophagitis; R91.1 Solitary pulmonary nodule; N18.3 Chronic kidney disease, stage 3 (moderate); J43.9 Emphysema, unspecified; M10.9 Gout, unspecified; T45.515A Adverse effect of anticoagulants, initial encounter; Y92.89 Other specified places as the place of occurrence of the external cause; Z86.718 Personal history of other venous thrombosis and embolism; I25.2 Old myocardial infarction; Z90.49 Acquired absence of other specified parts of digestive tract; Z88.8 Allergy status to other drugs, medicaments and biological substances; Z80.9 Family history of malignant neoplasm, unspecified; Z79.899 Other long term (current) drug therapy; Z79.82 Long term (current) use of aspirin; Z95.5 Presence of coronary angioplasty implant and graft; Z79.02 Long term (current) use of antithrombotics/antiplatelets

== ENCOUNTER 2018-08-09 03:12 | Inpatient (IN) | payer MEDICARE, OTHER ==
[~2018-08-09] VITALS: Ht 170.1 cm; Wt 70.8 kg
[2018-08-09] VITALS (11 sets, daily range): BP systolic 130–188; BP diastolic 52–90
--- NOTE | ~2018-08-09 | PR ---
[place], [place] PROGRESS NOTE NAME: ROCKY OWENS [facility] #: [id number] UNIT #: [id number] ROOM: 411 DOCTOR: CHUCK SAUCEDA MD,DELILAH BIRTHDATE: [birth year] DOS: 08/17/2018 SUBJECTIVE: She has been comfortably resting. The patient this morning, reported reduction of the abdominal pain. The investigation of the abdominal pain has been noted in progress. The patient denies symptoms of fever or chills. Shortness of breath has been noted mild, which were not noted at rest. There were no symptoms of fever or chills. PHYSICAL EXAMINATION: VITAL SIGNS: For the patient which were recorded as a normal temperature, respiratory rate 18, heart rate 70, blood pressure 173/59-140/56. The pulse oxygen saturation on 2 liters nasal cannula 95% saturation. HEENT: Examination shows head was atraumatic. Eyes nonicterus. NECK: Supple. CARDIOVASCULAR: S1, S2 audible. LUNGS: Without any wheezing or crackles. ABDOMEN: Flat. There was no tenderness. EXTREMITIES: Without any acute edema. IMPRESSION: Severe aortic stenosis with congestive heart failure, small bilateral pleural fluid, resulting in symptoms of cough and shortness of breath at times, upper abdominal pain. Investigation has been continued for the patient. The patient has been ordered upper GI, by patient's primary care attending. PLAN OF MANAGEMENT: From pulmonary standpoint, no change in treatment at this time will be necessary. Continue on therapy plan as previously. Usual care, other supportive plan of management and treatment. DELILAH WOODS MD CM:PNTRANS 1259 [id number] DELILAH SAUCEDA MD 08/17/18 2349 interface
--- NOTE | ~2018-08-09 | PR ---
[place], [place] PROGRESS NOTE NAME: ROCKY OWENS [facility] #: [id number] UNIT #: [id number] ROOM: 411 DOCTOR: CHUCK SAUCEDA MD,DELILAH BIRTHDATE: [birth year] DOS: 08/20/2018 SUBJECTIVE: The patient was noted comfortable at this time. The upper abdominal pain seemed to be resolved. There were no symptoms of shortness of breath at rest. There were no symptoms of fever, chills, or hemoptysis. OBJECTIVE: VITAL SIGNS: For the patient which has been recorded shows the temperature was recorded as normal. The respiratory rate recorded as 16, heart rate of 59, blood pressure 146/48. Pulse oxygen saturation until 2-3 liters nasal cannula 98% saturation. HEENT: Head was atraumatic. CARDIOVASCULAR: S1, S2 audible. LUNGS: Without any wheezing or crackles at the present time. ABDOMEN: Soft, nontender. EXTREMITIES: No acute edema. IMPRESSION: 1. Bilateral small pleural fluid. 2. Congestive heart failure secondary to aortic stenosis. PLAN OF MANAGEMENT: Continue the patient with current therapy, plan of management. She has been responding and shows gradual improvement in respiratory status. Discharge planning per primary care physician. The patient was noted with evidence of esophageal ulcers explaining her upper abdominal pain. DELILAH WOODS MD CM:PNTRANS 1245 1804 DELILAH SAUCEDA MD 08/20/18 1805 interface
--- NOTE | ~2018-08-09 | CON ---
[place], [place] REPORT OF CONSULTATION [id number] UNIT #: [id number] ROOM: 411 DOCTOR: MALU WILLARD MD BIRTHDATE: [birth year] DOS: 08/17/2018 HISTORY OF PRESENT ILLNESS: An 82-year-old who has presented with nausea, vomiting, undergoing investigation. The patient initially has been admitted on 08/09/2018 and she an 82-year-old with history of coronary artery disease and non-STEMI myocardial infarction, cardiac stents, severe aortic stenosis with atrial fibrillation, chronic renal disease, nausea, and vomiting. I have been asked for assessment of the patient in this regard. We have made arrangements to get the upper GI study on her. This has not been successful since she has already had a barium swallow and the residual barium still in her stomach, which by itself raises the fact that there should be some problem of gastric emptying. However, since she has been assessed this morning for upper GI and the obstacle above was on the way, we are going to proceed with the radiologic plans that we had and if she is unsuccessful or otherwise pathologic, I will proceed with the EGD Friday. PAST MEDICAL HISTORY: Associated hyperlipidemia, gastroesophageal reflux, essential hypertension, Zenker's diverticulum of the esophagus, osteoporosis, coronary artery disease, myocardial infarction, atrial fibrillation, renal insufficiency, all has been recognized in addition to sleep apnea and chronic obstructive pulmonary disease. PAST SURGICAL HISTORY: Associated with vertebroplasty, coronary artery stents, cataracts, cholecystectomy, and carpal tunnel repair bilaterally. SOCIAL HISTORY: Nonsmoker, nonalcohol consumer. FAMILY HISTORY: Supportive family. ALLERGIES: GABAPENTIN CAUSES WEAKNESS. WE ARE NOT SURE. MEDICATIONS: List has been reviewed. REVIEW OF SYSTEMS: HEENT: Denies double vision, blurred vision. RESPIRATORY: Admits chronic shortness of breath. CARDIOVASCULAR: Denies chest pain. DIGESTIVE SYSTEM: Recurrent emesis, postprandial. PHYSICAL EXAMINATION: VITAL SIGNS: Pleasant, frail patient. HEENT: Head normocephalic, nontraumatic. Mouth and buccal mucosa benign. Eyes: Pupils round, reactive. Sclerae nonicteric. NECK: Supple, no thyromegaly, no cervical lymphadenopathy. CHEST: Symmetric anatomy, equal, COPD pattern. No rhonchi. Decreased air entry in general. HEART: Grade 3/6 systolic murmur, otherwise suspected atrial fibrillation rhythm. ABDOMEN: Soft. No hepato-organomegaly. Bowel sounds present. No pulsatile mass. [place], [place] REPORT OF CONSULTATION NAME: ROCKY OWENS UNIT #: [id number] ROOM: 411 DOCTOR: MONTSE MAN,MALU BIRTHDATE: [birth year] EXTREMITIES: No cyanosis, no pedal edema. NEUROLOGIC: Alert and oriented for her status. IMPRESSION: Recurrent emesis, epigastric pain. Other adjunctive diagnosis as extensively described above in paragraph of past medical, surgical history. PLAN AND DISCUSSION: We will complete the upper GI study tomorrow. If undoable or other issues, then we were endoscopically addressed, otherwise. Workup in progress. Zenker's diverticulum has been recognized. Thank you very much indeed. Case was discussed with Dr. Martinez. ADDENDUM: Her labs and records have been reviewed. Radiologic studies have been reviewed. The most recent electrolytes appear to be sodium of 147, chloride of 111. Her CBC latest is 9 and 33, macrocytic indices, and CT scan of the abdomen has been essentially unremarkable. Blood cultures have been negative. CT scan of the chest has emphysematous changes, cardiomegaly, coronary arteries with calcification, bilateral pleural effusion, and pulmonary vascular congestion, all have been recognized. MALU WILLARD MD CM:CONSTR:REPORT OF CONSULTATION 1838 09/02/18 0734 interface
--- NOTE | ~2018-08-09 | EKG ---
[place], [place] ELECTROCARDIOGRAM REPORT NAME: ROCKY OWENS UNIT #: [id number] ROOM: 411 DOCTOR: CAREN DRAFT REPORT BIRTHDATE: [birth year] [facility] Test Date: 2018-08-12 Test Time: 11:09:39 Pat Name: ROCKY OWENS Department: Room: 411 2 Gender: F Sr. Director: Mandy Michelle : 1935 Requested By: AUGIE SOMMER Order Number: [id number] Reading MD: Willi Morris MD Measurements Intervals [place] Rate: 57 P: -21 [place]: 181 QRS: -32 QRSD: 93 T: 25 QT: 494 QTc: 481 Interpretive Statements Sinus rhythm Left axis deviation Compared to ECG 08/09/2018 09:12:25 No significant changes Electronically Signed On 08-12-2018 18:25:11 PST by Willi Morris MD CM:EKGRPT:ELECTROCARDIOGRAM REPORT 1109 1825 AUGIE SOMMER DO EPIPHANY DRAFT REPORT AUGIE SOMMER DO
--- NOTE | ~2018-08-09 | O ---
[place], [place] OPERATIVE NOTE NAME: ROCKY OWENS UNIT #: [id number] ROOM: 411 DOCTOR: MALU WILLARD MD BIRTHDATE: [birth year] DOS: 08/21/2018 HISTORY OF PRESENT ILLNESS: An 82-year-old patient was presented with dysphagia, unable to eat, and esophageal stasis, esophageal varicosity, Zenker's diverticulum in esophagus. PROCEDURE: Today's procedure part of investigation panendoscopy plus PEG tube placement. PREMEDICATION: Propofol. SCOPE: Olympus forward-viewing gastroscope Q10 video. REPORT: After putting the patient in supine position, scope was introduced. Thereafter, under direct visualization, advanced through the length of esophagus without difficulty. Zenker's diverticulum in cervical esophagus noticed. Gastric pouch was entered. The best transillumination sign was found on the subxiphoid, left leniency. A 2 mL of Xylocaine was injected into the area. Trocar was introduced into it. Guidewire was advanced through the center of it, grasped with forceps orally pulled. Gastrostomy tube Danish 20 was anchored to it, orally pulled, recovered from the surface of the abdomen. Anchors placed, patency checked. Photographic series obtained. The patient tolerated the procedure well. IMPRESSION: Percutaneous endoscopic gastrostomy for dysphagia, failure to thrive, and esophageal dysmotility, and esophageal Zenker's diverticulum. PLAN AND DISCUSSION: They are going to start feeding as ordered from tonight. MALU WILLARD MD CM:OPRECORD:OPERATIVE NOTE 1415 1430 MALU WILLARD MD 08/21/18 1431 interface
--- NOTE | ~2018-08-09 | PROC NOTE ---
[place], [place] PROCEDURE NOTE NAME: [facility]OCK[facility] OWENS [facility] [id number] UNIT #: [id number] ROOM: 411 DOCTOR: GAY HERNANDEZ BIRTHDATE: [birth year] DOS: 08/13/2018 MODIFIED BARIUM SWALLOW LOCATION: [facility], room 411, bed 2. ORDERING PHYSICIAN: Dr. Yeboah. RADIOLOGIST: Dr. Pozo. BACKGROUND INFORMATION: The patient is an 82-year-old female, who was seen for modified barium swallow. The patient has been experiencing pain with swallowing and vomiting after meals. MEDICAL HISTORY: Includes acute kidney injury, chest pain, osteoarthritis, COPD, GERD, Zenker's diverticulum, AFib, CHF, HTN. She is also diagnosed with pneumonia. The patient is known to this department from past clinical assessments, swallowing skills were within normal limits. The patient currently receives a regular consistency diet and thin liquids. For today's assessment, she was alert and cooperative. She was receiving oxygen via nasal cannula. Oral peripheral examination revealed presence of upper denture and a couple bottom teeth. Lingual and labial skills were within functional limits in terms of strength, range of motion, and coordination. Volitional cough and swallow were within normal limits. Weak coughing was noted prior to oral presentations. METHODS AND MATERIALS USED FOR THE EXAM: The patient was positioned in the lateral plane and the exam was viewed under fluoroscopy. The patient was presented with a variety of consistencies to assess swallowing skills including applesauce mixed with barium presented in half teaspoon amounts, barium-coated banana given in bite size piece and thin liquid barium taken by cup. ORAL PHASE: The patient achieved adequate labial seal around cup and spoon with no anterior loss. Bolus formation and transit were within normal limits. Mastication was within normal limits. Tongue to palate contact was within normal limits. Tongue to posterior pharyngeal wall contact was mildly impaired with puree and solid. Velar functioning was within normal limits with no nasal regurgitation. PHARYNGEAL PHASE: The pharyngeal swallow occurred within a timely manner with all consistencies. There was no penetration or aspiration with any consistency. Mild pooling in the vallecula was observed; however, this cleared with liquid wash. IMPRESSIONS AND RECOMMENDATIONS: Based on assessment results, this patient displayed oral and pharyngeal swallowing skills within functional limits. Some pooling occurred in the vallecula; however, cleared with liquid wash. No penetration or aspiration was observed. No followup treatment is warranted as oral and pharyngeal swallowing skills are within functional limits. Several minutes after completion of this study after the patient was taken out of the fluoroscopy room, she was noted to have vomited and this consisted of mucus [place], [place] PROCEDURE NOTE NAME: ROCKY OWENS UNIT #: [id number] ROOM: [facility] DOCTOR: GAY HERNANDEZ BIRTHDATE: [birth year] barium and the food that was given. The patient's nurse was informed of this as well as results and recommendations from this study. The patient was also educated and verbalized understanding. Thank you very much for this referral. Should you have any questions regarding this patient, please contact the speech pathologist at [phone]. GAY HERNANDEZ CM:PROCNOTE:PROCEDURE NOTE [id number] GAY HERNANDEZ
--- NOTE | ~2018-08-09 | PR ---
[place], [place] PROGRESS NOTE NAME: [facility] OWENS [facility] [id number] UNIT #: [id number] ROOM: 411 DOCTOR: CHUCK SAUCEDA MD,DELILAH BIRTHDATE: [birth year] DOS: 08/21/2018 SUBJECTIVE: The patient was noted comfortable at this time, resting on the bed. Denies symptoms of further abdominal pain. Shortness of breath was noted improving significantly. There was no coughing reported. OBJECTIVE: VITAL SIGNS: Normal temperature, respiratory rate 18, heart rate 52, blood pressure of 165/53 this morning. Pulse oxygen saturation on 3 liters nasal cannula 98% saturation. HEENT: Examination shows head was atraumatic. Eyes, nonicterus. NECK: Supple. CARDIOVASCULAR: S1, S2 is audible. LUNGS: Without any wheezing or crackles at the present time. ABDOMEN: Soft and nontender. IMPRESSION: Stable respiratory status, improving respiratory failure progressively with other respiratory symptoms, congestive heart failure with a small pleural fluid, and mitral valve stenosis remains stable. PLAN OF MANAGEMENT: Discharge planning as per primary care attending. No changes in the treatment immediately at this time will be necessary. DELILAH WOODS MD CM:PNTRANS [id number] [id number] DELILAH SAUCEDA MD 08/21/18 1424 interface
--- NOTE | ~2018-08-09 | PR ---
[place], [place] PROGRESS NOTE NAME[id number] UNIT #: [id number] ROOM: 411 DOCTOR: CHUCK SAUCEDA MD,DELILAH BIRTHDATE: [birth year] DOS: 08/16/2018 PULMONARY PROGRESS NOTE SUBJECTIVE: The patient has been noted comfortable at this time, resting on the bed. She has not been reported any symptoms of respiratory distress this morning. She has been noted improvement in the pain in the abdomen, which was reported yesterday. OBJECTIVE: VITAL SIGNS: Normal temperature, respiratory rate 18, heart rate of 67, blood pressure of 190/70 to 162/60. Pulse oxygen saturation was noted on 2 liters nasal cannula as 97% saturation. HEENT: Shows head was atraumatic, eyes nonicterus. NECK: Supple. CARDIOVASCULAR: S1 and S2 audible. LUNGS: The patient was noted without any wheezing or crackles. ABDOMEN: Soft, nontender, bowel sounds present. EXTREMITIES: Without any acute edema. LABORATORY DATA: BMP today was noted with BUN 23, creatinine 1.14. CBC this morning with normal WBC count. IMPRESSION: Acute congestive heart failure noted at the present time with aortic stenosis and bilateral small pleural fluid. PLAN OF MANAGEMENT: Continue the patient's current medical management of congestive heart failure therapy, plan of management, and other care plan. Usual care, other supportive therapy, plan of care and treatments. DELILAH WOODS MD CM:PNTRANS 1418 0015 DELILAH SAUCEDA MD 08/17/18 0013 interface
--- NOTE | ~2018-08-09 | EKG ---
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
--- NOTE | ~2018-08-09 | PR ---
[place], [place] PROGRESS NOTE NAME: ROCKY OWENS [facility] #: [id number] UNIT #: [id number] ROOM: 411 DOCTOR: CHUCK SAUCEDA MD,DELILAH BIRTHDATE: [birth year] DOS: 08/15/2018 SUBJECTIVE: She has been noted comfortable at this time, resting on the bed without any acute distress. The patient has not been reported symptoms of chest pain. The daughter of the patient was present in the room with the patient this morning. The patient was complaining of still pain and nauseated feeling. The pain in the abdomen was reported. PHYSICAL EXAMINATION: VITAL SIGNS: Normal temperature, respiratory rate of 20, heart rate 60, blood pressure 146/40, pulse ox saturation on 2 liters nasal cannula 97% saturation. HEENT: No acute change. NECK: Supple. CARDIOVASCULAR: S1, S2 was audible. LUNGS: Noted without any wheezing. Crackles were still noted in the lower lung bases. ABDOMEN: Soft, nontender. Bowel sounds present. EXTREMITIES: No acute edema. IMPRESSION: The patient with moderate aortic noted with acute congestive heart failure, bilateral pleural fluid and other abnormal respiratory symptoms of abdominal pain in the upper abdomen, etiology remains unclear. PLAN OF MANAGEMENT: Continue diuretics, bronchodilators, oxygen supplementation and other therapy, plan of management. Titrate oxygen supplementation to maintain a pulse oxygen saturation 92% or greater. DELILAH WOODS MD CM:PNTRANS 1432 1721 DELILAH SAUCEDA MD 08/15/18 1719 interface
--- NOTE | ~2018-08-09 | PR ---
[place], [place] PROGRESS NOTE [id number] UNIT #: [id number] ROOM: 411 DOCTOR: BARBARA FELIPE MD BIRTHDATE: [birth year] DOS: 08/17/2018 SUBJECTIVE: She does not have any chest pain, palpitation, breathing difficulty. No orthopnea or swelling of the lower extremities. She has had nausea and some discomfort in the belly. She has not had any bowel movement for over a week and had an enema this morning and did have a bowel movement. I gathered that 2 days old barium is still sitting in the stomach. She has not had any fever or chills. Her appetite is poor. PHYSICAL EXAMINATION: GENERAL: This is a patient who is a little tired. She is not in any distress. She is not tachypneic. VITAL SIGNS: Temperature is normal at 98.3, pulse is 64 regular, blood pressure 163/53, previous blood pressure was normal. NECK: JVP is normal. CARDIOVASCULAR: Auscultation reveals murmur of almost severe aortic stenosis and very few crackles. EXTREMITIES: No edema in lower extremities. IMPRESSION: 1. Coronary artery disease: This is asymptomatic. 2. Moderately severe aortic stenosis. She does not have any evidence of cardiac decompensation. 3. Abdominal discomfort and vomiting may be from fecal impaction. This is being addressed. No new recommendations. BARBARA FELIPE MD CM:PNTRANS [phone] BARBARA FELIPE MD 08/18/18 1720 interface
--- NOTE | ~2018-08-09 | PR ---
[place], [place] PROGRESS NOTE [id number] UNIT #: [id number] ROOM: 411 DOCTOR: CHUCK SAUCEDA MD,DELILAH BIRTHDATE: [birth year] DOS: 08/22/2018 PULMONARY PROGRESS NOTE SUBJECTIVE: The patient was noted comfortable at this time, lying on the bed. She has not been noted with symptoms of fever or chills. Denies any symptoms of abdominal pain. OBJECTIVE: VITAL SIGNS: Normal temperature, respiratory rate 18, heart rate of 50, blood pressure 111/52. The pulse oxygen saturation was noted on 2 liters nasal cannula 98% saturation. HEENT: No acute change. NECK: Supple. CARDIOVASCULAR: S1, S2 is audible. LUNGS: The patient was noted without any wheezing or crackles at the present time. ABDOMEN: Soft, nontender, bowel sounds present. IMPRESSION: Stable respiratory status, aortic stenosis, small bilateral pleural fluid with symptoms of shortness of breath, abdominal pain secondary to peptic ulcer disease. PLAN OF MANAGEMENT: No change from pulmonary standpoint. Continue current therapy, plan of management care as in progress. Discharge planning for the patient is pending for transfer to the group home facility. DELILAH WOODS MD CM:PNTRANS [phone] DELILAH SAUCEDA MD 08/23/18 0111 interface
--- NOTE | ~2018-08-09 | O ---
[place], [place] OPERATIVE NOTE NAME: [facility] OWENS [id number] UNIT #: [id number] ROOM: 411 DOCTOR: MONTSE MANMALU BIRTHDATE: [birth year] DOS: 08/19/2018 INDICATION FOR PROCEDURE: The patient has presented with a history of nausea and vomiting and we have been asked for assessment of the patient regarding nausea and vomiting. The patient's latest KUB of the abdomen shows contrast throughout the colon and residual contrast in the stomach and therefore she could not have been radiologically assessed. PLAN AND DISCUSSION: The patient has been sent for upper GI after she had a barium swallow, which did not yield much information. The upper GI repeatedly could not be done due to the retained barium in gastric pouch. She continued to have her symptomatology. PROCEDURE: Today's procedure part of investigation is panendoscopy plus biopsy. PREMEDICATION: Propofol. SCOPE: Olympus forward-viewing gastroscope Q10 video. REPORT: After putting the patient in left lateral position and application of lubricant to the scope, the scope was introduced. Thereafter under direct visualization, I advanced through the length of esophagus. Esophagus is practically filled with bilious and gastric secretions, which is refluxed into the esophagus. This was carefully suctioned out and underneath there is a dilated esophagus with esophageal erosions through particularly as we go toward the esophagogastric junction. Surprisingly, gastric junction was patent. The gastric pouch itself expresses moderate gastritis. Biopsy was obtained. Duodenal bulb, second and third part within normal limits. The patient extubated. Antral biopsy, tolerated the procedure well. IMPRESSION: Severe bile reflux esophagitis and esophageal erosions and gastritis. PLAN AND DISCUSSION: This patient most likely benefit from prokinetics i.e., metoclopramide 10 mg in divided dose a.m and p.m. to see how she will tolerate. If there are no extrapyramidal side effects then increase in dose. On the other hand, she requires to be on PPI management and Protonix 40 mg every day. On the other hand, she has to observe antireflux measures with elevation of the head of the bed at least 12 inches. Diet soft and she has to be observed to see if she has capability of swallowing or not. 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 I believe if this patient has PEG tube that may reduce the hindrance of the passage of food from hypopharynx to distal esophagus and bypassing by the liver into this distal gastric pouch. A PEG tube is a solution to this problem in addition to that, it protects her against protein calorie malnutrition and continuation of healing. Should this PEG would be approved by family, we will schedule the above by withholding anticoagulants for the next 48 hours. [place], [place] OPERATIVE NOTE NAME: ROCKY OWENS [facility] UNIT #: [id number] ROOM: 411 DOCTOR: MALU WILLARD MD BIRTHDATE: [birth year] MALU WILLARD MD CM:OPRECORD:OPERATIVE NOTE [id number] MALU WILLARD MD 09/02/18 0735 interface
--- NOTE | ~2018-08-09 | PR ---
[place], [place] PROGRESS NOTE NAME: [facility] [id number] UNIT #: [id number] ROOM: 411 DOCTOR: BARBARA FELIPE MD BIRTHDATE: [birth year] DOS: 08/12/2018 SUBJECTIVE: She is awake and alert. She felt a little tired and weak and had a little bit of epigastric discomfort this morning. Her blood pressure was rather high at the time. She had not been given hydralazine or amlodipine because her heart rate was quite slow. However, these 2 medications do not affect the heart rate. She has no breathing problem and has not had any palpitation. PHYSICAL EXAMINATION: GENERAL: The patient is awake and alert. VITAL SIGNS: Pulse is 60, regular. Blood pressure now is 138/70. NECK: JVP is normal. AJR is negative. EXTREMITIES: No edema of the lower extremities. She does have some rhonchi and a few crackles in both lungs, more so on the left side. IMAGING: Chest x-ray was done and I reviewed it. It shows improved pulmonary congestion. LABORATORY DATA: Hemoglobin is 10.0 grams. BUN 29 down from 44 two days ago and creatinine 1.57 down from 2.03 two days ago. IMPRESSION: 1. This patient probably had diastolic heart failure and probably showed some degree of systolic failure due to aortic stenosis and this has improved significantly. 2. She had mild chest pain today, but her blood pressure was rather high at that time. No further workup is deemed necessary. 3. Moderate aortic stenosis. 4. Chronic kidney disease, which seemed to be improving. She should have diuretics for another day or so and then plan her discharge. BARBARA FELIPE MD CM:PNTRANS [id number] BARBARA FELIPE MD 08/13/18 1154 interface
--- NOTE | ~2018-08-09 | PR ---
[place], [place] PROGRESS NOTE NAME: [facility] OWENS [facility] [id number] UNIT #: [id number] ROOM: 411 DOCTOR: CHUCK SAUCEDA MD,DELILAH BIRTHDATE: [birth year] DOS: 08/23/2018 PULMONARY PROGRESS NOTE SUBJECTIVE: The patient currently has a PEG tube in place for feeding. Feeding has been gradually increased and well tolerated. Denies symptoms of shortness of breath, coughing or sputum expectoration. We have planned for discharge to [facility] facility today. OBJECTIVE: VITAL SIGNS: Normal temperature, respiratory rate 18, heart rate 65, blood pressure 118/54. HEENT: Shows head was atraumatic, eyes nonicterus. NECK: Supple. CARDIOVASCULAR: S1 and S2 audible. LUNGS: The patient was without any wheeze or crackles. ABDOMEN: Soft and nontender. EXTREMITIES: Without any acute changes. IMPRESSION: Stable respiratory status noted with congestive heart failure and small bilateral pleural fluid. PLAN OF MANAGEMENT: Discharge planning per primary care physician. Continue other therapy, plan of management, care plan and treatment. DELILAH WOODS MD CM:PNTRANS [id number] DELILAH SAUCEDA MD 08/23/18 0994 interface
--- NOTE | ~2018-08-09 | PR ---
[place], [place] PROGRESS NOTE NAME: ROCKY OWENS [facility] #: [id number] UNIT #: [id number] ROOM: 411 DOCTOR: BARBARA FELIPE MD BIRTHDATE: [birth year] DOS: SUBJECTIVE: She is comfortable, does not have any chest pain or breathing difficulty. Her son is visiting her and she had eaten well and has no specific complaints. PHYSICAL EXAMINATION: GENERAL: This is a patient who is alert, oriented. VITAL SIGNS: Her pulse is irregular. NECK: JVP is normal. CARDIOVASCULAR: Auscultation reveals murmur of aortic stenosis and no edema in lower extremities. LUNGS: She has a few crackles in both lungs. An echocardiogram was read today and it demonstrated an LV ejection fraction of 65-70%, mild left ventricular hypertrophy and grade 1 diastolic dysfunction of the left ventricle. Mildly dilated aortic root, calcified aortic valve with moderate aortic stenosis, peak gradient was 66 mmHg; however, motion of the leaflets was appreciated on short axis view. She has severe pulmonary hypertension and moderate tricuspid regurgitation. IMPRESSION: 1. Systolic heart failure due to aortic stenosis and diastolic dysfunction of the left ventricle. This is mild. 2. Severe pulmonary hypertension. 3. Moderate tricuspid regurgitation. 4. Coronary artery disease. I do not feel that we need to pursue this any further. RECOMMENDATIONS: IV furosemide 40 mg daily and a chest x-ray will be done later. Renal function was better than yesterday and this will be followed while the patient is on diuretic. BARBARA FELIPE MD CM:PNTRANS [phone] BARBARA FELIPE MD 08/11/181852 interface
--- NOTE | ~2018-08-09 | CON ---
[place], [place] REPORT OF CONSULTATION NAME: [facility]Y [facility] #: [id number] UNIT #: [id number] ROOM: 411 DOCTOR: DELILAH SUTHERLAND MD BIRTHDATE: [birth year] DOS: 08/14/2018 PULMONARY CONSULTATION, EVALUATION AND MANAGEMENT REASON FOR CONSULTATION: The patient has ongoing acute respiratory symptoms. HISTORY OF PRESENT ILLNESS: This is an 82-year-old white female patient who has been asked for consultation by the hospitalist service, has been hospitalized in this hospital since 08/09/2018. The patient has been treated in this hospitalization for the ongoing medical management of chest pain, shortness of breath and other symptoms. An 82-year-old white female patient, known history of atrial fibrillation, aortic stenosis, and other symptoms, presented to the hospital. The patient was complaining of pain, which was described in the anterior chest wall for the patient, radiating to the back. The pain was described in mid thoracic area of the patient, was described to be very severe at times. The symptoms had started recently for the patient and noted progressive worsening. She denies symptoms of fever or chills. She is also complaining of some symptoms of dizziness. Denies symptoms of wheezing. Denies symptoms of hemoptysis. No symptoms of chest trauma. REVIEW OF SYSTEMS: CONSTITUTIONAL: Symptoms of fatigue and tiredness. Denies symptoms of fevers or chills. EYES: Denies burning, redness or tenderness. EAR, NOSE, THROAT: No sore throat, hoarseness, otalgia, posterior drainage or epistaxis. CARDIOVASCULAR: Denies anginal pain, edema or pain of the lower extremity. GASTROINTESTINAL: No dysphagia, nausea, vomiting, diarrhea, abdominal pain, hematemesis, melena or hematochezia. GENITOURINARY: No dysuria, suprapubic pain or hematuria. MUSCULOSKELETAL: No joint pain, redness or tenderness. SKIN: Denies lesions or rashes. CENTRAL NERVOUS SYSTEM: General weakness and fatigue were noted without any focal deficit. The patient denies any tingling or sensation of lower extremities, reporting symptoms of dizziness at times. Remaining systems were reviewed. They were noted all negative. PAST MEDICAL HISTORY: 1. Permanent atrial fibrillation. 2. Congestive heart failure with aortic stenosis. 3. Chronic kidney disease stage 3. 4. Past compression fracture of L2. 5. COPD. 6. Acute coronary artery disease. 7. Dyslipidemia. 8. Gastroesophageal reflux with history of possible oropharyngeal dysphagia. 9. Hypercoagulable status, details were unknown. 10. Pulmonary nodule of the patient was also reported in the right middle lobe. 11. Chronic hypoxic respiratory failure, used oxygen 2 liters nasal cannula. 12. Osteoporosis and osteoarthritis. [place], [place] REPORT OF CONSULTATION [facility]: [id number] UNIT #: [id number] ROOM: [facility] DOCTOR: JOEY SUTHERLAND MDM BIRTHDATE: [birth year] 12. History of Zenker diverticulum. PAST SURGICAL HISTORY: 1. The patient was reported as coronary artery bypass grafting. 2. Several cardiac catheterizations, coronary stents insertion. Last cardiac catheterization and coronary artery stent insertion was done on 06/18/[address] [facility]. 3. Decompression of the median nerve. 4. Cataract extraction with lens implantation. 5. History of vertebroplasty of L2. 6. Cholecystectomy. SOCIAL HISTORY: The patient was reporting nonsmoker lifetime. Denies any history of alcohol use, illicit drug use noted. Denies any history of exposure to industrial chemicals in the past at any work. FAMILY HISTORY: The patient's father at 80 years old from natural causes and old age. Mother at 73 years old from unknown cancer. HOME MEDICATIONS: Use of Fosamax, amiodarone, amlodipine, aspirin, vitamin D, Plavix, famotidine, folic acid, Lasix, hydralazine, Imdur, MiraLax, potassium chloride, pravastatin and sertraline. ALLERGIES: The patient carried the drug allergy. The patient reported GABAPENTIN causing weakness of the extremities and fall. PHYSICAL EXAMINATION: GENERAL: An 82-year-old female patient who has been currently lying on the bed without any acute distress this morning of assessment. Height was recorded by the nursing staff for this patient with height of 5 feet 7 inches, weight of 168 pounds, BMI 25. VITAL SIGNS: The patient has normal temperature since admission. Respiratory rate ranged between 22-18, heart rate of 57-68, blood pressure 120/60-140/58. Pulse oxygen saturation was recorded for the patient as pulse oxygen saturation of 97% on 2 liters nasal cannula. HEENT: Examination of head was atraumatic. Eyes, nonicterus. NECK: Supple. Age-related changes. CARDIOVASCULAR SYSTEM: S1 and S2 audible with loud murmur of aortic stenosis was visible on the precordium. LUNGS: The patient noted minimal crackles which are noted in mid to lower portion of the lungs bilaterally, more on the right than the left side. ABDOMEN: Soft, flat, nontender. Bowel sounds present. EXTREMITIES: Without edema. MUSCULOSKELETAL: While seen, kyphosis for the patient was noted. SKIN: No lesion or rashes. CENTRAL NERVOUS SYSTEM: Generally appeared to be intact. LABORATORY DATA: Reviewed for the patient in this consultation. Echocardiogram for the patient on 08/10/2018 noted with moderate aortic stenosis, diastolic dysfunction for the patient, the patient with normal left ventricular ejection [place], [place] REPORT OF CONSULTATION NAME: ROCKY OWENS UNIT #: [id number] ROOM: 411 DOCTOR: JOEY SUTHERLAND MDM BIRTHDATE: [birth year] fraction. The BMP for the patient on 08/10/2018; BUN 29, creatinine 1.7 at that time. The troponin for the patient was noted as normal on the 08/12/2018. CBC on 08/12/2018 for the patient, hemoglobin 10, hematocrit 32.0, platelet count was normal. Lactic acid noted 0.2 on 08/12/2018. Blood culture of the patient was taken on 08/12/2018 for the patient, no bacterial growth. CBC of the patient this morning, hemoglobin 9.2, WBC count normal, platelet count remains normal. The patient's modified barium swallow study was completed yesterday and the patient was reported without any evidence of aspiration. RADIOLOGY DATA: Review for this patient's chest ____ that was done on 08/11/2018 for the patient, small bilateral pleural fluid, mild cardiomegaly, basal areas of atelectasis, very likely rule out pneumonia. She had a CT scan of the abdomen and pelvis, which was also done for this patient on 08/11/2017 for the patient was reported with the radiologist findings. The patient has chronic L4 compression, evidence of L2 vertebroplasty without any acute intraabdominal pathologies were in the pelvis as well. CT scan of the chest was done for the patient on 08/13/2018, was personally reviewed for this patient as findings of small bilateral pleural fluid, area of compression and atelectasis, possible pneumonia can be completely excluded, T8 compression fracture was also noted for the patient on the CT scan of the chest, which did appear to be severe compression. IMPRESSION: 1. The patient who has been currently admitted to the hospital with current symptoms of chest pain, most likely related to the acute compression fracture of T8 with history of osteoporosis and osteoarthritis. 2. The patient with acute congestive heart failure, the patient with bilateral small pleural fluid, area of compression and atelectasis. Current findings were not suggestive of acute pneumonia in my opinion. 3. History of known moderate aortic stenosis and congestive heart failure, diastolic dysfunction. No acute coronary artery disease with previous intervention for the patient including coronary artery bypass grafting, cardiac catheterization, coronary artery stent insertion. 4. Acute on chronic kidney disease was also noted from admission as well. PLAN OF THERAPY: Based on the current assessment, the antibiotics will be discontinued for the patient at this time, as there was no evidence of acute pneumonia of the patient noted clinically. Maximize the management of congestive heart failure. Consider obtaining MRI of the spine and consultation by the Interventional Radiology for vertebroplasty for the patient. Compression fracture for the medical management causing persistent chest pain which is described as severe. Continue to follow the recommendations from the Cardiology Services as well. Other additional treatment changes for the patient will be recommended based on progress of the illness. Pleural fluid noted small at this time, would not require any intervention such as thoracentesis; however, in case pleural fluid increases for the patient such as thoracentesis could be done with the bedside assessment and ultrasound at that time. Continue medical management of the pain for this patient, osteoporosis and other chronic multiple medical illnesses. The assessment and management were discussed with Dr. Martinez who is the attending for today's visit as well. [place], [place] REPORT OF CONSULTATION NAME: ROCKY OWENS UNIT #: [id number] ROOM: 411 DOCTOR: DELILAH SUTHERLAND MD BIRTHDATE: [birth year] Thanks for allowing me to participate in the care of this patient. DELILAH SUTHERLAND MD CM:CONSTR:REPORT OF CONSULTATION 1632 DICKENS 08/17/18 0956 ANANDA LEUNG.DICKENS
--- NOTE | ~2018-08-09 | PR ---
[place], [place] PROGRESS NOTE NAME: ROCKY OWENS [facility] #: [id number] UNIT #: [id number] ROOM: 411 DOCTOR: CHUCK SAUCEDA MD,DELILAH BIRTHDATE: [birth year] DOS: 08/19/2018 SUBJECTIVE: The patient has been noted comfortable at this time without any acute shortness of breath. She is n.p.o. past midnight for the upper endoscopy, which has planned to be done today by Dr. Blum. She has not been noted any symptoms of chest pain or hemoptysis. Epigastric pain has been reported intermittently. OBJECTIVE: VITAL SIGNS: The patient showed normal temperature, respiratory rate 18, heart rate of 57-60, blood pressure of 150/80 this morning. Pulse oxygen saturation on 2 liters nasal cannula 96% saturation. HEENT: Examination shows head was atraumatic. Eyes nonicterus. CARDIOVASCULAR: S1, S2 audible. LUNGS: Without any wheezing or crackles. ABDOMEN: Soft, bowel sounds present. IMPRESSION: The patient with upper abdominal pain will be investigating, acute shortness of breath related to congestive heart failure with history of aortic stenosis. PLAN OF THERAPY: Continuation of current plan of management, proceed with the further cardiac assessment. Other supportive therapy, plan of management, care plan for the patient has previously been continued without changes. DELILAH WOODS MD CM:PNTRANS [id number] DELILAH SAUCEDA MD 08/19/18 1421 interface
--- NOTE | ~2018-08-09 | PR ---
[place], [place] PROGRESS NOTE [id number] UNIT #: [id number] ROOM: 411 DOCTOR: BARBARA FELIPE MD BIRTHDATE: [birth year] DOS: 08/10/2018 SUBJECTIVE: She is alert, awake. She has nausea and had also some chest tightness, along with upper abdominal discomfort. She is not sweating. She is not short of breath. PHYSICAL EXAMINATION: GENERAL: Reveals a patient who is alert. NECK: Normal JVP. CARDIOVASCULAR: Severe murmur, aortic stenosis over the aortic area at the apex. LUNGS: She has crackles in both lungs. LABORATORY DATA: Chest x-ray demonstrated bibasilar abnormalities, probably pulmonary edema and small pleural effusions. Fluid balance was -80 mL. IMPRESSION: 1. This patient has coronary artery disease, but ECG is unremarkable. Troponin level is negative. 2. Significant aortic stenosis appears to be present. 3. She seems to have a left-sided heart failure, probably from significant aortic stenosis. An echocardiogram was done today and I will review that in the context of aortic valve disease. BARBARA FELIPE MD CM:PNTRANS [id number] BARBARA FELIPE MD 08/10/18 1636 interface
--- NOTE | ~2018-08-09 | PR ---
[place], [place] PROGRESS NOTE [id number] UN[facility] #: [id number] ROOM: 411 DOCTOR: BARBARA FELIPE MD BIRTHDATE: [birth year] DOS: 08/14/2018 SUBJECTIVE: She feels quite well. She is a little tired. Earlier today, she did not go for a walk, but yesterday she did walk. She has a dry cough. No chest pain or palpitations. PHYSICAL EXAMINATION: GENERAL: The patient who is fairly alert. She is not tachypneic. Complexion is fine. VITAL SIGNS: Temperature 97.5, pulse is 60 regular, blood pressure 116/47. NECK: JVP is normal. LUNGS: She has lot of crackles with reduced breath sounds in both lungs. EXTREMITIES: No edema in lower extremities. Chest x-ray today showed minimal abnormality. IMPRESSION: 1. Coronary artery disease, asymptomatic. She has moderate calcific aortic stenosis. 2. Systolic heart failure seems to be better controlled. 3. Possible chronic obstructive pulmonary disease. No new recommendations. BARBARA FEILPE MD CM:PNTRANS 1651 [id number] BARBARA FELIPE MD 08/15/18 0847 interface
--- NOTE | ~2018-08-09 | PR ---
[place], [place] PROGRESS NOTE NAME: ROCKY OWENS [facility] #: [id number] UNIT #: [id number] ROOM: 411 DOCTOR: BARBARA FELIPE MD BIRTHDATE: [birth year] DOS: 08/19/2018 SUBJECTIVE: She feels reasonably well. She did sit up today. She has no abdominal pain. Her eating is better. No chest pain, heaviness, or breathing difficulties and denied any palpitations either. PHYSICAL EXAMINATION: GENERAL: The patient is very pleasant. VITAL SIGNS: Pulse is 60 regular, blood pressure 162/70, blood pressure has been modestly elevated. NECK: JVP is normal. LUNGS: Very few crackles in the lung. Good breath sounds. EXTREMITIES: There is no edema in the lower extremities. CARDIOVASCULAR: Auscultation demonstrates murmur of moderate aortic stenosis. IMPRESSION: 1. Coronary artery disease, this is asymptomatic. 2. Moderate to severe aortic stenosis. 3. There is no evidence of cardiac decompensation. From cardiac standpoint, she can be discharged. BARBARA FELIPE MD CM:PNTRANS 1914 BARBARA FELIPE MD 08/20/18 0835 interface
--- NOTE | ~2018-08-09 | EKG ---
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
--- NOTE | ~2018-08-09 | PR ---
[place], [place] PROGRESS NOTE NAME: ROCKY OWENS [facility] #: [id number] UNIT #: [id number] ROOM: 411 DOCTOR: CHUCK SAUCEDA MD,DELILAH BIRTHDATE: [birth year] DOS: 08/18/2018 SUBJECTIVE: She has been noted comfortable at this time, was getting a clear liquid diet at this time. The GI workup still remains in progress. The patient has not reported symptoms of shortness of breath. Severe abdominal pain has been reported at times with some nauseated feeling. OBJECTIVE: VITAL SIGNS: Normal temperature, respiratory rate of 16, heart rate 60, blood pressure 130/82. Pulse oxygen saturation today is 96% saturation. HEENT: Examination shows head was atraumatic. Eyes nonicterus. NECK: Supple. CARDIOVASCULAR: S1, S2 audible. LUNGS: Noted, the patient without any wheeze or crackles at the present time. ABDOMEN: Soft, nontender. IMPRESSION: Severe aortic stenosis, congestive heart failure, bilateral pleural fluid, symptoms of shortness breath at times were noted, and abdominal pain. The patient currently remains in progress. PLAN OF MANAGEMENT: No changes in the plan of therapy at this time. Continue current plan of management and further maximizing therapy for congestive heart failure and GI tract. Dr. Blum has already seen this patient to manage the patient's GI issues. DELILAH WOODS MD CM:PNTRANS [id number] DELILAH SAUCEDA MD 08/18/18 2337 interface
--- NOTE | ~2018-08-09 | EKG ---
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
--- NOTE | ~2018-08-09 | CON ---
[place], [place] REPORT OF CONSULTATION [id number] #: [id number] ROOM: 411 DOCTOR: BARBARA FELIPE MD BIRTHDATE: [birth year] DOS: 08/09/2018 HISTORY OF PRESENT ILLNESS: This is an 82-year-old -[place] woman whom I know well. She has coronary artery disease and has had coronary artery stents deployed in the left anterior descending artery and had NSTEMI and 3 drug-eluting stent were deployed in the right coronary artery, couple of months ago. She also has aortic stenosis and had atrial fibrillation, chronic kidney disease, GERD, dyslipidemia, DVT, which has been recurrent, essential hypertension and a hypercoagulable state. She has a Zenker's diverticulum, moderate obesity, osteoporosis, but has never had a stroke. She had anterior chest tightness that developed yesterday evening and lasted for some time. She came to the Emergency Department. She has not had any exertional chest pain or pressure recently, however, she does get short of breath when she walks and she uses a walker to get around. She has not had any palpitations or loss of consciousness, but gets dizzy when she stands up. She also has a rash in the inguinal area in the lower abdominal area. HOME MEDICATIONS: Include Fosamax, amiodarone 200 mg daily, amlodipine 5 daily, aspirin 81 daily, clopidogrel 75 mg daily, famotidine 40 mg daily, folic acid 1 mg daily, furosemide 20 mg daily, hydralazine 25 mg b.i.d., Imdur 30 daily, potassium chloride 10 mEq daily, pravastatin 40 mg daily, nystatin cream/powder to rash and vitamin D. PHYSICAL EXAMINATION: GENERAL: This is a patient who is alert, oriented. She is not anemic. There is no thyromegaly or finger clubbing. VITAL SIGNS: Pulse is regular at 72, blood pressure 171/81. NECK: JVP is normal. There are no carotid bruits. There is no parasternal heave. HEART: Auscultation reveals audible, but diminished aortic component of the second heart sound. This is a late peaking harsh grade 5/6 murmur over the aortic area and there is harsh grade 5-6/6 systolic murmur over the apex. This murmur is also audible over the back of the chest. EXTREMITIES: She has 1-2+ edema in the lower extremities. RESPIRATORY: She has a decent breath sounds with very few adventitious sounds. ABDOMEN: Supple, nontender. No pulsatile mass. LABORATORY DATA: An ECG showed normal sinus rhythm and a normal pattern. Troponin is less than 0.05, which is upper range of normal. BUN 49, creatinine 2.52. GFR is 18 mL per minute. Sodium 144, potassium 4.5, serum albumin 2.5 mg/dL. Hemoglobin is 9.9 g/dL. IMPRESSION: 1. This patient has coronary artery disease and had stents in couple of vessels. She has chest tightness and has abnormal troponin I level, this could be from severe aortic stenosis and she has low possibility of myocardial ischemia, although ECG is unremarkable. 2. Clinically, I think this is [id number] aortic stenosis and we need [place], [place] REPORT OF CONSULTATION NAME: ROCKY OWENS UNIT #: [id number] ROOM: 411 DOCTOR: BARBARA FELIPE MD BIRTHDATE: [birth year] to do an echocardiogram to determine the extent of stenosis. 3. Hypertension is quite significant. RECOMMENDATIONS: 1. An echocardiogram to assess severity of aortic stenosis. 2. Serial troponin levels to exclude echo this myocardial infarction. 3. Carvedilol 6.25 mg b.i.d. will be added for blood pressure and also because she has coronary artery disease. A dose of amlodipine will be increased to 5 mg b.i.d. Edema in the lower extremities, may be from amlodipine and the patient's inactivity. I thank you for this consult. BARBARA FELIPE MD CM:CONSTR:REPORT OF CONSULTATION 0729 09/01/18 0918 interface
[~2018-08-09 03:12] MED LIST changes: +FAMOTIDINE40 MG PO; +MIRALAX POWDER17 G1 PO; +NATURE'S BLEND F1 MG PO; +NYSTOP60 GM T; +VITAMIN D5000 UNI1 PO; +WARFARIN SODIUM1 MG PO
[2018-08-09 03:31] LABS: EOS % 0.5 % (1.0-4.0); HEMATOCRIT 31.7 % (37.0-47.0); HEMOGLOBIN 9.9 g/dl (12.0-16.0); LYMPH # 0.7 10*3/uL (1.3-4.4); LYMPH % 11.5 % (27.0-41.0); MEAN CELL VOLUME 97.5 fl (81.0-99.0); MEAN CORPUSCULAR HGB 30.5 pg (27.0-31.0); MEAN CORPUSCULAR HGB CONC 31.2 g/dl (33.0-37.0); MEAN PLATELET VOLUME 10.7 fl (9.6-12.3); MONO # 0.4 10*3/uL (0.1-1.0); MONO % 6.8 % (3.0-9.0); NEUT # 5.1 10*3/uL (2.3-7.9); NEUT % 80.3 % (47.0-73.0); PLATELET COUNT AUTOMATED 155 10*3/uL (130-400); RED BLOOD COUNT 3.25 10*6/uL (4.10-5.10); RED CELL DISTRI WIDTH 15.7 % (0-14.5); WHITE BLOOD COUNT 6.3 10*3/uL (4.8-10.8)
[2018-08-09 03:41] LABS: ACT PARTIAL THROMBO TIME 23.3 SECONDS (20.8-31.5); INTERNATIONAL NORM RATIO 1.2 (2.0-3.5)
[2018-08-09 03:47] LABS: ALBUMIN 2.6 gm/dl (3.1-4.5); CREATININE 2.52 mg/dL (0.55-1.02); POTASSIUM 4.5 mmol/L (3.5-5.1); TOTAL PROTEIN 6.7 gm/dL (6.4-8.2)
[2018-08-09 03:48] LABS: TROPONIN I 0.041 ng/ml (<0.045)
--- NOTE | 2018-08-09 06:30 | NUR ---
DR. FELIPE ON FLOOR AND NOTIFIED OF NEW CONSULT AND PT STILL IN ER AT THIS TIME.
--- NOTE | 2018-08-09 06:50 | NUR ---
A 82, admitted to , under the services of AIDEN Bertrand DO with a diagnosis of ACUTE KIDNEY INJURY, CHEST PAIN. Chief complaint is CHEST PAIN. Patient arrived via ambulance from ER. Monitor applied. Initial assessment completed. Vital signs taken and recorded. AIDEN BERTRAND DO notified of admission to the unit. Orders received. See assessment for past medical history, medications and allergies. Patient and/or family oriented to unit. [facility]. Clothing/patient valuable form completed. ELSA REDDY
--- NOTE | 2018-08-09 07:55 | NUR ---
NORCO 5/325 GIVEN FOR CHEST TIGHTNESS RATING A 6/10 ON PAINSCALE.
--- NOTE | 2018-08-09 07:57 | NUR ---
DR. CASTILLO NOTIFIED OF PT'S NEED FOR WOUND CARE ORDERS.
--- NOTE | 2018-08-09 09:00 | NUR ---
PATIENT SLEEPING. NO SIGNS OF DISTRESS. NORCO EFFECTIVE.
--- NOTE | 2018-08-09 10:10 | NUR ---
DR FELIPE NOTIFIED OF TROPONIN LEVEL OF 0.057. NO NEW ORDERS RECEIVED.
--- NOTE | 2018-08-09 13:35 | NUR ---
NORCO 5/325 GIVEN PER PATIENT REQUEST FOR UPPER ABDOMINAL PAIN RATING A 6/10.
[2018-08-09 13:45] LABS: BILIRUBIN NEGATIVE (NEGATIVE); BLOOD TRACE-LYSED (NEGATIVE); CLARITY SL CLOUDY (CLEAR); COLOR YELLOW (YELLOW); GLUCOSE NEGATIVE (NEGATIVE); KETONE NEGATIVE (NEGATIVE); LEUKO ESTERASE 2+ (NEGATIVE); NITRITE NEGATIVE (NEGATIVE); UROBILINOGEN 0.2 E.U./dl (0.2-1.0)
[2018-08-09 14:12] LABS: BACTERIA 1+; EPITHELIAL CELLS TNTC; WBC TNTC wbc/hpf (0-5)
--- NOTE | 2018-08-09 14:30 | NUR ---
PATIENT SLEEPING. NO SIGNS OF PAIN. NORCO EFFECTIVE.
--- NOTE | 2018-08-09 23:00 | NUR ---
ROCKY OWENS [id number] Please refer to the physician's history and physical for past medical history, comorbid conditions, and allergies. Diagnosis: ACUTE KIDNEY INJURY, CHEST PAIN Rene Score: 17,AT RISK WOUND DESCRIPTIONS: Diffuse red rash from neck to knees anterior but does spread to back. Bilateral arms and hand affected as well. Distal abdomen is a partial thickness rash measurements are 19cm x 42cm x 0.1cm. There is a small amount of sero-sanguineous drainage noted. Foul odor noted. No slough present. The periwound skin texture is normal. The periwound skin color is normal. Surface the patient is resting on: Isoflex SKIN PREVENTION RECOMMENDATION: 1. Pressure redistribution support surface as appropriate 2. Elevate heels 3. Remove boots/TEDS every shift and reapply 4. Head of bed 30 degrees as tolerated 5. Assess nutrition and hydration 6. Manage moisture 7. Avoid the use of containment devices while in bed 8. Use absorptive products on surfaces limit layers of linens on bed 9. Turn and reposition every 1-2 hours in bed and every 1 hour in chair as tolerated 10. Weight shifts every 15 minutes while up in chair 11. Offloading with pillows or device to keep heels elevated off bed 12. Monitor skin at least every shift 13. Inspect under medical devices twice a day WOUND TREATMENT RECOMMENDATIONS: Cleanse abdominal fold with soap and water and apply nystatin powder every [address] abd pad in folds after application of powder. Cleanse buttocks with soap and water and apply hydraguard every 8 hours and prn for soiling. Wheelchair cushion when oob.
--- NOTE | 2018-08-09 23:31 | NUR ---
ASSUMED CARE FOR THIS PT AT THIS TIME. NO C/O VOICED. CALL LIGHT IN REACH.
[2018-08-10] VITALS: BP 148/63
--- NOTE | 2018-08-10 03:10 | NUR ---
ASSUMED CARE OF THIS PATIENT AT THIS TIME. NO S/S OF DISTRESS. PATIENT RESTING COMFORTABLY IN HER BED AT THIS TIME. RESPIRATIONS EASY. CALL LIGHT WITHIN REACH.
[2018-08-10 07:08] LABS: BASO % 0.5 % (0.0-1.0); EOS # 0.4 10*3/uL (0.0-0.4); EOS % 7.1 % (1.0-4.0); HEMATOCRIT 32.4 % (37.0-47.0); HEMOGLOBIN 9.9 g/dl (12.0-16.0); LYMPH % 15.9 % (27.0-41.0); MEAN CELL VOLUME 99.7 fl (81.0-99.0); MEAN CORPUSCULAR HGB 30.5 pg (27.0-31.0); MEAN CORPUSCULAR HGB CONC 30.6 g/dl (33.0-37.0); MEAN PLATELET VOLUME 10.8 fl (9.6-12.3); MONO # 0.4 10*3/uL (0.1-1.0); NEUT # 4.3 10*3/uL (2.3-7.9); PLATELET COUNT AUTOMATED 145 10*3/uL (130-400); RED BLOOD COUNT 3.25 10*6/uL (4.10-5.10); RED CELL DISTRI WIDTH 15.9 % (0-14.5); WHITE BLOOD COUNT 6.2 10*3/uL (4.8-10.8)
[2018-08-10 07:41] LABS: CREATININE 2.03 mg/dL (0.55-1.02); PHOSPHOROUS 3.6 mg/dL (2.5-4.9); POTASSIUM 4.4 mmol/L (3.5-5.1)
--- NOTE | 2018-08-10 09:00 | NUR ---
Property [employer] Casualty Insurance Agent in to talk to patient. Patient states lives at home with . There are few steps in the home. Physician: leonid mason [facility] Home health services: none at present Patient's level of ADLs: MINIMAL ASSIST Patient has working utilities: all working DME: cane and walker Follow-up physician's appointment after d/c: will be made by hospitalist nurse director upon discharge Does patient want to access PORTAL?: no Discharge plan discussed with patient, daughter Moriah present, patient lives at home with , is also a patient in the hospital, daughter stated that she is not sure whether patient and are well enough to care for them selve at home. discussed with patient going to a short term custodial for rehab prior to going back home, patient was inagreement with this, given choice of facilities she chose [facility], will send referral to [facility] for when patient is medically stable for discharge, patient will need a three night stay prior to going to [facility]. RIGO OSORIO
[2018-08-10 12:00] VITALS: BP 168/57
--- NOTE | 2018-08-10 12:18 | NUR ---
case management faxed patient's information to Kiersten at [facility], will await a return call regarding acceptance
--- NOTE | 2018-08-10 13:00 | NUR ---
PHYSICAL THERAPY PAtient evaluated on 5, full evaluation to follow. Continue with PT as per plan of care with fall, mod (A), alarms and 02 precautions. Will require SNF. PAtient is high complexity via chart reviw, tests and evaluation: 36871 Thank you for this referral. Cynthia Saeed,PT
--- NOTE | 2018-08-10 13:21 | NUR ---
HENS completed online. Submitted Successfully. Validation Completed. Printed and Copy Placed in patient chart.
--- NOTE | 2018-08-10 15:28 | NUR ---
Occupational Therapy evaluation completed on 4 with full eval to follow. Precautions include fall risk, impaired balance, safety, acute debility, dizziness with positional changes; supine to sit, O2 use, IV UE. Patient is moderate complexity level 61147 via chart review, testing and evaluation. Recommend OT per POC and SNF to enable return home with . Thank you for this referral. Simran Kemp OTR/L
[2018-08-10 16:00] VITALS: BP 154/53
[2018-08-10 20:00] VITALS: BP 159/62
--- NOTE | 2018-08-10 20:00 | NUR ---
RESTING IN BED EATING ICE CREAM. 02 INTACT AT 2LPM VIA NASAL CANNULA. LUNGS DIMINISHED BILATERALLY; NO COUGH NOTED AT THIS TIME. PT. VOICES NO C/O; CALL LIGHT WITHIN REACH.
[2018-08-11] VITALS: BP 151/57
--- NOTE | 2018-08-11 03:30 | NUR ---
PT. BECOMING MORE CONFUSED/DISORIENTED NIGHT PROGRESSES. REORIENTS FOR SHORT PERIODS OF TIME. BED IN LOW POSITION; CALL LIGHT WITHIN REACH. BED ALARM ON.
--- NOTE | 2018-08-11 04:04 | NUR ---
MEDICATED WITH [facility] FOR C/O GENERALIZED DISCOMFORT. 02 INTACT; CALL LIGHT WITHIN REACH. BED ALARM ON.
[2018-08-11 06:26] LABS: BASO % 0.4 % (0.0-1.0); EOS # 0.2 10*3/uL (0.0-0.4); EOS % 3.6 % (1.0-4.0); HEMATOCRIT 32.7 % (37.0-47.0); LYMPH # 0.8 10*3/uL (1.3-4.4); LYMPH % 12.1 % (27.0-41.0); MEAN CELL VOLUME 98.2 fl (81.0-99.0); MEAN CORPUSCULAR HGB CONC 30.6 g/dl (33.0-37.0); MEAN PLATELET VOLUME 11.1 fl (9.6-12.3); MONO # 0.5 10*3/uL (0.1-1.0); MONO % 6.9 % (3.0-9.0); NEUT # 5.1 10*3/uL (2.3-7.9); NEUT % 76.3 % (47.0-73.0); PLATELET COUNT AUTOMATED 158 10*3/uL (130-400); RED BLOOD COUNT 3.33 10*6/uL (4.10-5.10); RED CELL DISTRI WIDTH 15.8 % (0-14.5); WHITE BLOOD COUNT 6.7 10*3/uL (4.8-10.8)
[2018-08-11 06:40] LABS: CREATININE 1.71 mg/dL (0.55-1.02)
--- NOTE | 2018-08-11 07:52 | NUR ---
ASSUMED CARE OF PATIENT. RECEIVED REPORT FROM ITZ PAK. PATIENT RESTING COMFORTABLY IN HER BED AT THIS TIME. RESP EASY. NO S/S OF DISTRESS. CALL LIGHT IS WITHIN REACH.
--- NOTE | 2018-08-11 09:58 | NUR ---
PHYSICAL THERAPY Patient is preparing for colonoscopy and would like to wait until this afternoon to do therapy. Will check back later today. ZOHRA GRADY ENERGY ENGINEER
[2018-08-11 12:00] VITALS: BP 145/56
--- NOTE | 2018-08-11 13:50 | NUR ---
DR WILLARD NOTIFIED OF CONSULT. NEW ORDERS RECEIVED.
--- NOTE | 2018-08-11 13:53 | NUR ---
PHYSICAL THERAPY Patient presented to therapy in supine in bed with head of bed elevated. Patient has report of discomfort and / or pain in mid and low back and anterior trunk she says is related to a yeast infection. Patient agrees to therapy session. Patient was identified by name and . Patient performed supine to sitting at EOB transfer with MIN A X 1 with V/Cs for rolling to R side and pushing off of R elbow and L hand on bed. Patient sat at EOB with no assistance from therapist with SBA for 3 minutes. Patient transferred STS to W/W with MIN A X 1 with V/Cs for pushing off of bed with hands. Patient ambulated out of room and down hallway with W/W and CGA X 1 to MIN A X 1 with moderate LOB on 2 occassions for 120' x 1 on 2 LITERS of spO2. Patient sat on EOB and performed bilateral LEs ther ex in all planes of movement for 15 reps each for strengthening in order to facillitate improving patient's functional mobility. Patient transferred back to supine in bed with SBA x 1. Patient was 1:1 with this QUITLINE COUNSELOR for 23 minutes total. Patient was left in supine with head of bed elevated, call light within reach, and bed alarm activated. Patient is recommended for SNF upon discharge. ZOHRA GRADY QUITLINE COUNSELOR
[2018-08-11 16:00] VITALS: BP 148/56
[2018-08-11 20:00] VITALS: BP 174/59; BP 178/68
--- NOTE | 2018-08-11 20:31 | NUR ---
PATIENTS BLOOD PRESSURE MANUALLY 178/68. NOTIFIED DR. RAND, STATED THAT THIS NURSE WILL ADMINSITER NIGHT TIME BLOOD PRESSURE MEDICINE AT THIS TIME. DR. RAND STATED TO JUST KEEP AN EYE ON IT
--- NOTE | 2018-08-11 20:44 | NUR ---
24 HR chart check completed.
--- NOTE | 2018-08-11 21:10 | NUR ---
PATIENT SPIT 2/3 PILLS BACK OUT AT THIS NURSE. REFUSED NYSTATIN AND REFUSED TO DRINK WATER WITH MIRALAX. DR. RAND NOTIFIED THAT PATIENT SPIT PILLS BACK OUT AND NOTIFIED HIM WHICH ONES AND THAT COREG WAS HELD DUE TO HEART RATE. IT WAS NOTED TO THIS NURSE THAT THE PATIENT SUNDOWNS, NOTIFIED DR. RAND OF THIS WELL. DR RAND STATED TO RECHECK BLOOD PRESSURE A LITTLE LATER AND IF IT IS STILL HIGH, THEN WE WILL GIVE HER SOMETHING IV
[2018-08-12] VITALS (7 sets, daily range): BP systolic 128–190; BP diastolic 54–82
[2018-08-12 08:01] LABS: CREATININE 1.57 mg/dL (0.55-1.02); POTASSIUM 3.6 mmol/L (3.5-5.1)
--- NOTE | 2018-08-12 08:45 | NUR ---
DR CASTILLO NOTIFIED OF BP. AM MEDS GIVEN EARLY. WILL CONT TO MONITOR. CALL LIGHT IN REACH.
--- NOTE | 2018-08-12 09:00 | NUR ---
case management visits with patient, daughter present, patient will be going to [facility] for short term snf when medically stable, case management will follow
--- NOTE | 2018-08-12 09:13 | NUR ---
Recommend follow up for wound care in outpatient setting patient being discharge to another facility at this time.
--- NOTE | 2018-08-12 10:03 | NUR ---
PHYSICAL THERAPY Patient was not feeling well and would like to rest the remainder of the morning. Will check back with patient this afternoon. ZOHRA GRADY SAP PORTAL ARCHITECT
--- NOTE | 2018-08-12 10:52 | NUR ---
OT NOTE Attempted to see pt this A.M. for OT session and upon arrival pt had reports/complaint of 5/10 chest pain that radiates into her back. No therapy provided at this time and nurse notified. Continue with POC as able. TAJ Mullins/Adeola
--- NOTE | 2018-08-12 10:55 | NUR ---
PT C/O CHEST PAIN OF 5/10 THAT STARTS IN THE CENTER OF HER CHEST AND RADIATES TO HER BACK. BP 128/60. DR SOMMER NOTIFIED.
--- NOTE | 2018-08-12 11:04 | NUR ---
NORCO GIVEN AT THIS TIME FOR C/O CHEST PAIN OF 5/10. WILL CONT TO MONITOR. CALL LIGHT IN REACH.
--- NOTE | 2018-08-12 11:05 | NUR ---
patient updates faxed to Kiersten at [facility], patient has been accepted and her 3 night stay is completed. Patient is ok to go when medically stable for discharge.
--- NOTE | 2018-08-12 12:04 | NUR ---
BAHMAN EFF FOR CHEST PAIN. WILL CONT TO MONITOR. CALL LIGHT IN REACH.
--- NOTE | 2018-08-12 13:33 | NUR ---
OT NOTE Pt was seen this P.M. 1:1 for 18 minute OT session. Upon arrival pt was supine in bed, pt identified by name and . Pt had no complaints at this time. Pt transferred supine to sit EOB with SBA and use of bed rail. While sitting EOB challenged pt's sitting balance while having her weight shift, cross midline, and bilateral integration to increase I and enhance safety. Pt was able to maintain G sitting balance with SBA. Also while sitting EOB pt donned socks with SBA by bringing her leg over her knee and donning new gown with Eli for management of heart monitor. Pt completed functional mobility to bathroom and back with CGA and use of w/w for UE support. Pt transferred back into bed with SBA where she was left with call light in hand, tray table in place, and bed alarm activated for safety. Continue with rec D/C plan to SNF. TAJ Mullins/Adeola
--- NOTE | 2018-08-12 14:30 | NUR ---
PHYSICAL THERAPY Patient presented to therapy in supine with report of feeling much better and and wanting to walk. Patient performed supine to sitting at EOB with SBA. Patient transferred STS with with min a x 1. Patient ambulated with W/W and CGA X 1 for 124' x 1 with verbal cues for upright posture, locking knees, and pushing down on walkers. Patient sat in bedside chair and performed bilateral LE ther ex 2 x 10 reps each for strengthening the LEs in order to facilitate improving patient's functional
--- NOTE | 2018-08-12 18:41 | NUR ---
ZOFRAN GIVEN AT THIS TIME FOR C/O NAUSEA AND VOMITING. WILL CONT TO MONITOR. CALL LIGHT IN REACH.
--- NOTE | 2018-08-12 18:51 | NUR ---
RESULTS OF CXR REPORTED TO DR SOMMER.
[2018-08-12 19:29] LABS: BASO % 0.3 % (0.0-1.0); EOS # 0.2 10*3/uL (0.0-0.4); HEMATOCRIT 32.9 % (37.0-47.0); LYMPH # 1.1 10*3/uL (1.3-4.4); LYMPH % 16.8 % (27.0-41.0); MEAN CELL VOLUME 99.1 fl (81.0-99.0); MEAN CORPUSCULAR HGB 30.1 pg (27.0-31.0); MEAN CORPUSCULAR HGB CONC 30.4 g/dl (33.0-37.0); MEAN PLATELET VOLUME 10.3 fl (9.6-12.3); MONO # 0.3 10*3/uL (0.1-1.0); MONO % 4.8 % (3.0-9.0); NEUT # 4.8 10*3/uL (2.3-7.9); NEUT % 74.3 % (47.0-73.0); PLATELET COUNT AUTOMATED 153 10*3/uL (130-400); RED BLOOD COUNT 3.32 10*6/uL (4.10-5.10); RED CELL DISTRI WIDTH 15.5 % (0-14.5); WHITE BLOOD COUNT 6.4 10*3/uL (4.8-10.8)
[2018-08-12 19:46] LABS: CREATININE 1.7 mg/dL (0.55-1.02); POTASSIUM 3.7 mmol/L (3.5-5.1); TROPONIN I 0.039 ng/ml (<0.045)
[2018-08-13] VITALS: BP 152/64; BP 163/59
--- NOTE | 2018-08-13 04:03 | NUR ---
24 HR chart check completed.
[2018-08-13 06:56] LABS: BASO % 0.4 % (0.0-1.0); EOS # 0.3 10*3/uL (0.0-0.4); EOS % 4.5 % (1.0-4.0); HEMATOCRIT 33.7 % (37.0-47.0); HEMOGLOBIN 9.9 g/dl (12.0-16.0); LYMPH % 13.8 % (27.0-41.0); MEAN CELL VOLUME 100.3 fl (81.0-99.0); MEAN CORPUSCULAR HGB 29.5 pg (27.0-31.0); MEAN CORPUSCULAR HGB CONC 29.4 g/dl (33.0-37.0); MEAN PLATELET VOLUME 11.1 fl (9.6-12.3); MONO # 0.4 10*3/uL (0.1-1.0); MONO % 5.8 % (3.0-9.0); NEUT # 5.3 10*3/uL (2.3-7.9); NEUT % 74.8 % (47.0-73.0); PLATELET COUNT AUTOMATED 145 10*3/uL (130-400); RED BLOOD COUNT 3.36 10*6/uL (4.10-5.10); RED CELL DISTRI WIDTH 15.4 % (0-14.5); WHITE BLOOD COUNT 7.1 10*3/uL (4.8-10.8)
[2018-08-13 07:13] LABS: CREATININE 1.55 mg/dL (0.55-1.02); POTASSIUM 3.6 mmol/L (3.5-5.1)
--- NOTE | 2018-08-13 07:29 | NUR ---
NOTIFIED DR. SOMMER AT THIS TIME OF PATIENTS MANUAL BLOOD PRESSURE 180/64. ORDER RECIEVED TO GIVE BLOOD PRESSURE MEDICATION EARLY
--- NOTE | 2018-08-13 07:54 | NUR ---
PRN ZOFRAN GIVEN FOR PT GETTING SICK AFTER MORNING MEDICATIONS BEING GIVEN. CALL LIGHT WITHINR EACH, WILL MONITOR
[2018-08-13 08:00] VITALS: BP 180/64
--- NOTE | 2018-08-13 08:13 | NUR ---
NOTIFIED DR. SOMMER THAT PATIENT SEEMS TO BE HAVING ISSUES SWALLOWING. PATIENT THREW UP A LITTLE WHEN TAKING MORNING MEDICATIONS. ZOFRAN GIVEN. STATED SPEECH THERAPY WOULD BE CONSULTED
--- NOTE | 2018-08-13 08:42 | NUR ---
PATIENT STATES VERY MILD NAUSEA NOW
--- NOTE | 2018-08-13 09:00 | NUR ---
patient will be going to [facility] when medically stable
--- NOTE | 2018-08-13 11:00 | NUR ---
DR WOODS MADE AWARE OF NEW CONSULT ORDER.
--- NOTE | 2018-08-13 11:37 | NUR ---
case management was asked to talk with patient's daughter, daughter wanted POA and living will forms for her mom, [facility] POA and living will papers given to the daughter for her and her mom to go over
[2018-08-13 12:00] VITALS: BP 136/53
--- NOTE | 2018-08-13 13:14 | NUR ---
PT MEDICATED WITH ZOFRAN FOR C/O NAUSEA AND VOMITING X 1
--- NOTE | 2018-08-13 13:22 | NUR ---
OT NOTE Attempted to see pt this P.M. for OT session and upon arrival pt was out of her room for modified barium swallow. Will check back at a later time/date. TAJ Mullins/Adeola
--- NOTE | 2018-08-13 13:58 | NUR ---
SPEECH PATHOLOGY Modified barium swallow completed as per orders. Patient has been experiencing pain with swallowing and vomiting after meals. She is diagnosed with pneumonia as well. She is known to this dept. from past clinical assessments, where swallowing skills were WNL. She was alert and cooperative for today's assessment and was tested with puree, solid and thin liquid consistencies. There was no penetration or aspiration with any consistency. Mild pooling in the valleculae was observed with puree and solid which cleared with liquid wash. Several minutes later, after patient was taken out of fluoro room, she vomited, which consisted of mucous, barium and food that was given. Recommend esophageal testing. No follow up treatment is warranted as oral and pharyngeal swallowing skills are WNL. Results and hannah. were shared with patient and her nurse and they verbalized understanding. Dictated report to follow. Thank you for this referral. GAY HERNANDEZ MSCCC-BULK TANK CAR UNLOADER
--- NOTE | 2018-08-13 15:22 | NUR ---
PHYSICAL THERAPY Patient was approached for therapy session at 1:30 pm and patient said she wasn't feeling well after having her procedure earlier today. Patient would like to rest due to not feeling well. Will check back with patient tommorrow. ZOHRA GRADY RENTAL CLERK
[2018-08-13 16:00] VITALS: BP 138/54
[2018-08-13 20:00] VITALS: BP 135/46
[2018-08-14] VITALS: BP 140/50
[2018-08-14 06:02] LABS: CREATININE 1.65 mg/dL (0.55-1.02); POTASSIUM 3.3 mmol/L (3.5-5.1)
[2018-08-14 06:06] LABS: BASO % 0.3 % (0.0-1.0); EOS # 0.2 10*3/uL (0.0-0.4); EOS % 2.8 % (1.0-4.0); HEMATOCRIT 30.4 % (37.0-47.0); HEMOGLOBIN 9.2 g/dl (12.0-16.0); LYMPH # 0.8 10*3/uL (1.3-4.4); LYMPH % 12.4 % (27.0-41.0); MEAN CORPUSCULAR HGB 30.6 pg (27.0-31.0); MEAN CORPUSCULAR HGB CONC 30.3 g/dl (33.0-37.0); MEAN PLATELET VOLUME 11.3 fl (9.6-12.3); MONO # 0.4 10*3/uL (0.1-1.0); MONO % 6.4 % (3.0-9.0); NEUT # 5.2 10*3/uL (2.3-7.9); NEUT % 77.2 % (47.0-73.0); PLATELET COUNT AUTOMATED 138 10*3/uL (130-400); RED BLOOD COUNT 3.01 10*6/uL (4.10-5.10); RED CELL DISTRI WIDTH 15.7 % (0-14.5); WHITE BLOOD COUNT 6.7 10*3/uL (4.8-10.8)
--- NOTE | 2018-08-14 11:05 | NUR ---
PHYSICAL THERAPY Patient was ill at this time with nauasea and pain in the abdominal area. Patient also c/o a leaking IV site. Patient's condition was reported to ITZ Turner. NOT THERAPY PROVIDED AT THIS TIME. ZOHRA GRADY IT TRAINER
--- NOTE | 2018-08-14 11:05 | NUR ---
OT NOTE Attempted to see pt this A.M. for OT session and upon arrival pt had complaints of nausea and stomach pain. Requesting to rest at this time. Will check back at a later time/date as able. TAJ Mullins/Adeola
--- NOTE | 2018-08-14 11:45 | NUR ---
Site to rt arm is leaking. SIte removed.IV started right wrist with #22 angiocath after 1 attempt. The IV site was prepped with Chloraprep. Heparin lock attached. IV solution NS infusing at 80 cc/hr. Sterile dressing applied. Patient tolerated precedure well. Procedure performed according to [facility] policy & procedure. GONZALO RICHARD
[2018-08-14 12:00] VITALS: BP 148/48
--- NOTE | 2018-08-14 14:50 | NUR ---
PHYSICAL THERAPY Patient is still ill this afternoon with stomach pain and nauasea. No therapy provided for this reason. ZOHRA GRADY THERAPEUTIC DIETITIAN
--- NOTE | 2018-08-14 14:53 | NUR ---
Notified [facility] patient will not be discharged today due to nausea, probable discharge Friday08/15/18. Patient is ok to go when medically stable for discharge.
--- NOTE | 2018-08-14 15:01 | NUR ---
OCCUPATIONAL THERAPY CO-SIGN I approve of the Occupational Therapy notes written above. CECIL MCCLENDON OTR/Adeola
[2018-08-14 16:00] VITALS: BP 160/47
[2018-08-14 20:00] VITALS: BP 158/51
--- NOTE | 2018-08-14 20:18 | NUR ---
PT. HAD SMALL EMESIS FROM COUGHING AND SPIT UP WHITE PHLEMB/MUCOUS. ZOFRAN WAS SOMEWHAT EFFECTIVE PER PT FOR NAUSEA.
[2018-08-15] VITALS: BP 139/64
--- NOTE | 2018-08-15 03:05 | NUR ---
24 HR chart check completed.
[2018-08-15 06:27] LABS: BASO % 0.5 % (0.0-1.0); EOS # 0.1 10*3/uL (0.0-0.4); EOS % 1.1 % (1.0-4.0); HEMATOCRIT 33.4 % (37.0-47.0); HEMOGLOBIN 9.8 g/dl (12.0-16.0); LYMPH # 0.8 10*3/uL (1.3-4.4); LYMPH % 9.5 % (27.0-41.0); MEAN CELL VOLUME 100.9 fl (81.0-99.0); MEAN CORPUSCULAR HGB 29.6 pg (27.0-31.0); MEAN CORPUSCULAR HGB CONC 29.3 g/dl (33.0-37.0); MEAN PLATELET VOLUME 10.8 fl (9.6-12.3); MONO # 0.4 10*3/uL (0.1-1.0); MONO % 4.7 % (3.0-9.0); NEUT # 6.9 10*3/uL (2.3-7.9); NEUT % 83.5 % (47.0-73.0); PLATELET COUNT AUTOMATED 137 10*3/uL (130-400); RED BLOOD COUNT 3.31 10*6/uL (4.10-5.10); RED CELL DISTRI WIDTH 15.7 % (0-14.5); WHITE BLOOD COUNT 8.2 10*3/uL (4.8-10.8)
[2018-08-15 07:00] LABS: CREATININE 1.28 mg/dL (0.55-1.02); POTASSIUM 3.7 mmol/L (3.5-5.1)
[2018-08-15 08:00] VITALS: BP 146/64
--- NOTE | 2018-08-15 10:10 | NUR ---
PT MEDICATED WITH ZOFRAN AT THIS TIME FOR COMPLAINTS OF NAUSEA & VOMITING. WILL MONITOR FOR EFFECTIVENESS.
--- NOTE | 2018-08-15 11:15 | NUR ---
PER PATIENT, PRN MEDICATION HAS BEEN EFFECTIVE.
--- NOTE | 2018-08-15 11:16 | NUR ---
PHYSICAL THERAPY Patient seen this AM for her therapy session, supine in bed at time of therapist arrival; pt reports fatigue and did not want to get out of bed- pt was agreeable to perform supine ther-ex this date. Supine B LE ther-ex x 10 reps for LE strength, endurance and function for peformance in transfers, gait and bed mobility: heel slides, ankle pumps, hip abd/add, quad sets, SLR; PIERCING MILL OPERATOR providing verbal and tactile cues for technique, improved ROM and progression of exercise. Pt reports fatigue in B LE's after completion of exercise but voices no c/o pain. Pt supine in bed at time of session end with call light and tray table within reach. Briana Berrios, PIERCING MILL OPERATOR
[2018-08-15 16:00] VITALS: BP 155/55
[2018-08-15 20:00] VITALS: BP 156/60
--- NOTE | 2018-08-15 20:15 | NUR ---
PT. PULSEOX 88% ON 2L O2 NC. MOIST RHONCHI POSTERIORLY BILAT.WITH WEAK MOIST COUGH NOTED. SCANT EDEMA LOWER LEGS. INCREASE O2 4L NC AND HAD PATIENT SIT UP AND COUGH AND DEEP BREATH. PULSE OX INCREASED TO 94%. RESP. ON FLOOR AND ALSO LISTENED AND ASSESSED PATIENT. PT HAS IV FLUIDS INFUSING AT 80ML/HR. DECREASED IV FLUIDS TO 30ML/HR AND CALLING DOCTOR.
--- NOTE | 2018-08-15 20:23 | NUR ---
SPOKE WIH DR. BRAN ABOUT PATIENT CONDITION AND ORDERS RECEIVED TO DC IV FLUIDS. PT. IV FLUIDS DISCONTINUED AND PULSE OX REMAINS 95% ON 4 L O2 NC. EXPLAINED TO PATIENT PLAN OF CARE AND SHE IS AGREEABLE.
--- NOTE | 2018-08-15 22:00 | NUR ---
PT. STATED "I BREATHING EASIER."
[2018-08-16] VITALS (7 sets, daily range): BP systolic 152–190; BP diastolic 53–78
[2018-08-16 05:57] LABS: BASO % 0.4 % (0.0-1.0); EOS # 0.1 10*3/uL (0.0-0.4); EOS % 1.3 % (1.0-4.0); HEMATOCRIT 30.8 % (37.0-47.0); LYMPH % 13.2 % (27.0-41.0); MEAN CORPUSCULAR HGB 29.8 pg (27.0-31.0); MEAN CORPUSCULAR HGB CONC 29.2 g/dl (33.0-37.0); MONO # 0.4 10*3/uL (0.1-1.0); MONO % 5.3 % (3.0-9.0); NEUT # 5.9 10*3/uL (2.3-7.9); PLATELET COUNT AUTOMATED 130 10*3/uL (130-400); RED BLOOD COUNT 3.02 10*6/uL (4.10-5.10); RED CELL DISTRI WIDTH 15.8 % (0-14.5); WHITE BLOOD COUNT 7.5 10*3/uL (4.8-10.8)
[2018-08-16 06:17] LABS: CREATININE 1.14 mg/dL (0.55-1.02); POTASSIUM 3.5 mmol/L (3.5-5.1)
--- NOTE | 2018-08-16 22:00 | NUR ---
DR. OROZCO NOTIFIED OF ELEVATED BLOOD PRESSURE
[2018-08-17] VITALS: BP 151/61
[2018-08-17 06:35] LABS: BASO % 0.4 % (0.0-1.0); EOS # 0.1 10*3/uL (0.0-0.4); EOS % 0.6 % (1.0-4.0); HEMATOCRIT 33.1 % (37.0-47.0); HEMOGLOBIN 9.7 g/dl (12.0-16.0); LYMPH % 12.2 % (27.0-41.0); MEAN CELL VOLUME 100.3 fl (81.0-99.0); MEAN CORPUSCULAR HGB 29.4 pg (27.0-31.0); MEAN CORPUSCULAR HGB CONC 29.3 g/dl (33.0-37.0); MONO # 0.4 10*3/uL (0.1-1.0); MONO % 4.5 % (3.0-9.0); NEUT # 6.5 10*3/uL (2.3-7.9); NEUT % 81.3 % (47.0-73.0); PLATELET COUNT AUTOMATED 140 10*3/uL (130-400); RED CELL DISTRI WIDTH 15.7 % (0-14.5)
[2018-08-17 07:00] LABS: BUN 22 mg/dl (7-24); CHLORIDE 111 mmol/L (98-107); CREATININE 1.06 mg/dL (0.55-1.02); POTASSIUM 3.6 mmol/L (3.5-5.1); SODIUM 147 mmol/L (136-145)
[2018-08-17 08:00] VITALS: BP 140/56
--- NOTE | 2018-08-17 09:00 | NUR ---
case management visits with patient, patient will be going to [facility] when she is medically stable for discharge, no other needs at this time
--- NOTE | 2018-08-17 09:12 | NUR ---
PHYSICAL THERAPY Patient leaving room for medical test at 9:00 am. Will check back later. ZOHRA GRADY FOUNDATION ASSISTANT
--- NOTE | 2018-08-17 09:19 | NUR ---
Unable to assess patient at this time patient is down having a abdominal series.
--- NOTE | 2018-08-17 09:43 | NUR ---
patient updated clinicals faxed to [facility] for review, patient ok to go when medically stable for discharge.
--- NOTE | 2018-08-17 10:27 | NUR ---
ROCKY OWENS [id number] Please refer to the physician's history and physical for past medical history, comorbid conditions, and allergies. Diagnosis: ACUTE KIDNEY INJURY, CHEST PAIN Rene Score: 17,AT RISK WOUND DESCRIPTIONS: No diffuse red rash from neck to knees or bilateral upper extermilities noted. Distal abdomen is a partial thickness rash measurements are 19cm x 42cm x 0.1cm with no drainage or odor noted. The periwound skin texture is normal. The periwound skin color is normal. Surface the patient is resting on: Isoflex SKIN PREVENTION RECOMMENDATION: 1. Pressure redistribution support surface as appropriate 2. Elevate heels 3. Remove boots/TEDS every shift and reapply 4. Head of bed 30 degrees as tolerated 5. Assess nutrition and hydration 6. Manage moisture 7. Avoid the use of containment devices while in bed 8. Use absorptive products on surfaces limit layers of linens on bed 9. Turn and reposition every 1-2 hours in bed and every 1 hour in chair as tolerated 10. Weight shifts every 15 minutes while up in chair 11. Offloading with pillows or device to keep heels elevated off bed 12. Monitor skin at least every shift 13. Inspect under medical devices twice a day WOUND TREATMENT RECOMMENDATIONS: Continue current orders.
--- NOTE | 2018-08-17 10:33 | NUR ---
OT NOTE 0849: Attempted to see pt this A.M. for OT session and upon arrival pt was out of her room for medical test. Will check back at a later time/date. 1033: Second attempt made to see pt this A.M. for OT session and upon arrival pt had complaints of nausea and not being able to keep her breakfast down. Will check back as able at a later time/date. TAJ Mullins/Adeola
--- NOTE | 2018-08-17 10:35 | NUR ---
PATIENT ATTEMPTED TO EAT BREAKFAST. PATIENT HAD SMALL AMOUNT OF EMESIS AT THIS TIME.
--- NOTE | 2018-08-17 10:57 | NUR ---
DR. WILLARD CALLED AT THIS TIME AND MADE AWARE OF PATIENT NOT BEING ABLE TO GET UPPER GI SERIES TODAY DUE TO PATIENT STILL HAVING BARIUM IN HER FROM HER PREVIOUS TESTS. MONTSE ALSO AWARE OF PATIENT NOT BEING ABLE TO KEEP FOOD DOWN. ORDERED TO KEEP PATIENT NPO UNTIL HE SEES HER. TOLD MNOTSE THAT PATIENT STATED SHE HAS NOT MOVED HER BOWELS SINCE BEFORE HER ADMISSION ON 08/09. ORDERED TO GIVE PATIENT FLEETS ENEMA.
[2018-08-17 12:00] VITALS: BP 173/59
--- NOTE | 2018-08-17 12:16 | NUR ---
FLEET ENEMA ADMINISTERED AT THIS TIME PER ORDERS. PATIENT TOLERATED WELL.
[2018-08-17 13:08] VITALS: BP 136/51
--- NOTE | 2018-08-17 13:25 | NUR ---
OT NOTE Pt was seen this P.M. 1:1 for 25 minute OT session. Upon arrival pt was supine in bed, pt identified by name and . Pt presented to therapy with continous 2L-O2 via NC which she remained on throughout entire session. Pt transferred supine to sit EOB with SBA and use of bed rail. While sitting EOB pt completed simple grooming task of washing her face and hands with set-upA. Pt was able to maintain G- sitting balance throughout. Functional mobility completed to the bathroom and back with CGA and use of w/w for UE support while therapist managed O2 tank. Pt required several standing rest breaks with education on breathing techniques. Pt rewtunred to EOB where she transferred sit to supine with SBA. THere she was left supine in bed with call light in hand, tray table in place, and bed alarm activated for safety. Continue with rec D/C plan to SNF. TAJ Mullins/Adeola
--- NOTE | 2018-08-17 13:28 | NUR ---
PHYSICAL THERAPY Patient presented to therapy in supine with 2 liters of spO2 via nasal canula. Patient reports feeling better and no nauasea at this time. Patient agrees to therapy treatment. Patient was identified by name and . Patient performed supine to sitting EOB transfer with MIN A X 1 from EOB. Patient ambulated with Standard Walker and Close Supervision to CGA X 1 for 110' x 1 with verbal cues for lifting walker and upright posture. Patient transferred back to supine in bed with SBA. Patient was left in supine position with head of bed elevated, call light within reach, and bed alarm activated. Patient was 1:1 with this FREIGHT AND PASSENGER AGENT for 15 minutes total. patient was left attached to wall outlet with 2 liters of spO2 via nasal canula. ZOHRA GRADY FREIGHT AND PASSENGER AGENT
[2018-08-17 16:00] VITALS: BP 163/56
--- NOTE | 2018-08-17 19:03 | NUR ---
DR. WILLARD ON FLOOR TO SEE PATIENT AT THIS TIME. STATED PATIENT CAN HAVE ICE CHIPS AND JUICE. DR. WILLARD WANTS CALLED TOMORROW WITH RESULTS OF UPPER GI SERIES. EGD ON Friday08/19/[address] WILLARD.
[2018-08-17 20:00] VITALS: BP 157/64
[2018-08-18] VITALS: BP 158/57
--- NOTE | 2018-08-18 03:50 | NUR ---
PT IS RESTING IN BED AT THIS TIME WITH NO SIGNS OR SYMPTOMS OF PAIN OR DISTRESS. RESPIRATIONS ARE EASY AND UNLABORED ON 3L NASAL CANNULA. SHE IS CURRENTLY NSR ON THE MONITOR WITH A HEART RATE IN THE 60'S. BED IS IN LOWEST POSITION AND CALL LIGHT IS WITHIN REACH. PT HAS HAD NO EPISODES OF NAUSEA OR VOMITING DURING THE NIGHT.
[2018-08-18 06:44] LABS: CREATININE 1.13 mg/dL (0.55-1.02); POTASSIUM 3.5 mmol/L (3.5-5.1)
[2018-08-18 08:00] VITALS: BP 130/82
--- NOTE | 2018-08-18 08:41 | NUR ---
PT TO RADIOLOGY VIA FOR TESTING
--- NOTE | 2018-08-18 09:00 | NUR ---
case management visits with patient, patient will be going to [facility] when medically stable, patient denies any other needs at this time
--- NOTE | 2018-08-18 09:21 | NUR ---
PHYSICAL THERAPY Patient not feeling well at present and wants therapy to come back at 11:00 AM. Will check back then. ZOHRA GRADY TABLE GAMES SHIFT MANAGER
--- NOTE | 2018-08-18 10:23 | NUR ---
Dr. North notified of wound care recommendations.
--- NOTE | 2018-08-18 10:41 | NUR ---
OT NOTE Attempted to see pt this A.M. for OT session and upon arrival pt was supine in bed, pt was having some personal issues that she was trying to figure out and requesting to be seen at a later time. Will continue with POC as able. ELI Mullnis
--- NOTE | 2018-08-18 11:13 | NUR ---
PHYSICAL THERAPY Patient is not feeling well this morning and is very frustrated that she is not having her upper gastoscope this morning. Patient wants therapy to stop back this afternoon. ZOHRA GRADY CARROT TIER
[2018-08-18 12:00] VITALS: BP 142/62
--- NOTE | 2018-08-18 12:30 | NUR ---
DR RICHTER NOTIFIED OF PT AND PT DTR WANTING TO SPEAK WITH HIM PT DTR WAITING IN THE ROOM
--- NOTE | 2018-08-18 12:49 | NUR ---
spoke with dr lopez regarding upper gi unable to be done today
--- NOTE | 2018-08-18 13:19 | NUR ---
OT NOTE Second attempt made to see pt this P.M. for OT session and upon arrival pt had just finished lunch and is now vomiting upon arrival. Will check back at a later time/date. TAJ Mullins/Adeola
--- NOTE | 2018-08-18 13:30 | NUR ---
SPOKE WITH PT AND PT DTR REGARDING CODE STATUS . BOTH AGREED THAT PT IS A DNRCC
--- NOTE | 2018-08-18 13:52 | NUR ---
PHYSICAL THERAPY Patient presented to therapy in supine with report of nausea and vomiting after eating her lunch. Patient is presently vomiting. No therapy provided this afternoon for this reason. ZOHRA GRADY IRONWORKER APPRENTICE SHOP
[2018-08-18 16:00] VITALS: BP 151/51
--- NOTE | 2018-08-18 17:58 | NUR ---
PT DANIELLE AT BEDSIDE WILL MONITOR
--- NOTE | 2018-08-18 18:11 | NUR ---
PT REQUESTED AND GIVEN ZOFRAN FOR C/O NAUSEA. WILL MONITOR
[2018-08-18 20:00] VITALS: BP 150/63
[2018-08-19] VITALS (10 sets, daily range): BP systolic 128–189; BP diastolic 44–80
[2018-08-19 07:42] LABS: CREATININE 1.13 mg/dL (0.55-1.02); POTASSIUM 3.4 mmol/L (3.5-5.1)
--- NOTE | 2018-08-19 08:00 | NUR ---
PT RESTING COMFORTABLY IN BED. DENIES N/V AT THIS TIME. NPO FOR EGD TODAY. WILL CONTINUE TO MONITOR. KULWINDER OLIVEROS.RCC
--- NOTE | 2018-08-19 09:00 | NUR ---
case management visits with patient, patient will be going to [facility] when medically stable, no other needs at this time
--- NOTE | 2018-08-19 09:25 | NUR ---
PHYSICAL THERAPY Patient is sleeping at 8:45 AM. Will check back later. ZOHRA GRADY CERTIFIED TRAVEL COUNSELOR
--- NOTE | 2018-08-19 10:45 | NUR ---
TO OR VIA BED WITH STAFF FOR EGD.
--- NOTE | 2018-08-19 11:28 | NUR ---
OT NOTE Attempted to see pt this A.M. for OT session and upon arrival pt was out of her room for medical test/procedure. Will check back at a later time/date. TAJ Mullins/Adeola
--- NOTE | 2018-08-19 11:50 | NUR ---
PHYSICAL THERAPY Patient is in OR for upper gastroscope. Will check back this PM. latosha ashton well logging captain
--- NOTE | 2018-08-19 13:18 | NUR ---
PHYSICAL THERAPY Patient has company at this time. Will check back later. ZOHRA GRADY COIL FORMER
--- NOTE | 2018-08-19 13:49 | NUR ---
PT BACK FROM PROCEDURE. LYING COMFORTABLY IN BED. CALL LIGHT WITHIN REACH. REPORT GIVEN TO CHAPIS MOBLEY. KULWINDER BROTHERS.RCC
--- NOTE | 2018-08-19 14:15 | NUR ---
OT NOTE Second attempt made to see pt this P.M. for OT session and upon arrival pt was supine in bed with reports of increased fatigue from just returning from test. Pt requesting to rest at this time. Will continue with POC as able. TAJ Mullins/Adeola
--- NOTE | 2018-08-19 14:23 | NUR ---
PHYSICAL THERAPY Patient was approached for therapy session at 2:10 pm and patient had just returned from her upper Gastroscope procedure. Patient declined treatment due to not feeling well and still being lethargic from the anesthesia. ZOHRA GRADY LINE LEADER
[2018-08-20] VITALS: BP 146/48
--- NOTE | 2018-08-20 01:29 | NUR ---
24 HR chart check completed.
[2018-08-20 05:54] LABS: BASO % 0.3 % (0.0-1.0); EOS # 0.2 10*3/uL (0.0-0.4); EOS % 1.6 % (1.0-4.0); HEMOGLOBIN 9.5 g/dl (12.0-16.0); LYMPH # 0.9 10*3/uL (1.3-4.4); LYMPH % 9.8 % (27.0-41.0); MEAN CELL VOLUME 99.4 fl (81.0-99.0); MEAN CORPUSCULAR HGB 29.5 pg (27.0-31.0); MEAN CORPUSCULAR HGB CONC 29.7 g/dl (33.0-37.0); MEAN PLATELET VOLUME 10.9 fl (9.6-12.3); MONO # 0.4 10*3/uL (0.1-1.0); MONO % 4.3 % (3.0-9.0); NEUT % 83.5 % (47.0-73.0); PLATELET COUNT AUTOMATED 174 10*3/uL (130-400); RED BLOOD COUNT 3.22 10*6/uL (4.10-5.10); RED CELL DISTRI WIDTH 15.7 % (0-14.5); WHITE BLOOD COUNT 9.5 10*3/uL (4.8-10.8)
[2018-08-20 06:05] LABS: BUN 22 mg/dl (7-24); CHLORIDE 112 mmol/L (98-107); CREATININE 0.99 mg/dL (0.55-1.02); POTASSIUM 3.2 mmol/L (3.5-5.1); SODIUM 147 mmol/L (136-145)
--- NOTE | 2018-08-20 07:49 | NUR ---
SPOKE WITH DR WILLARD REGARDING PT AND DIETARY ORDER CONFUSION, HIS OPERATIVE NOTE STATES PT MAY HAVE SOFT DIET, BUT PT REMAINS NPO. STATES PT MAY HAVE CLEAR LIQUID DIET UNTIL MIDNIGHT, AND PT MUST REMAIN UPRIGHT WHILE DRINKING OR EATING.
[2018-08-20 08:00] VITALS: BP 144/78
--- NOTE | 2018-08-20 08:55 | NUR ---
PHYSICAL THERAPY Patient reports still being nauseous and would like to wait to do therapy until this afternoon. Will check back with patient later. ZOHRA GRADY SCRAP WHEELER
--- NOTE | 2018-08-20 09:00 | NUR ---
case management visits with patient, patient will be going to [facility] when medically stable for discharge
--- NOTE | 2018-08-20 11:15 | NUR ---
OT NOTE Pt was seen this A.M. 1:1 for 20 minute OT session. Upon arrival pt was supine in bed, pt identified by name and . Pt had complaints of feeling a little nausea however was willing to participate at this time. Pt transferred supine to sit EOB with Eli for assist with UB. While sitting EOB pt donned socks and gown with Eli. Challenged pt's sitting balance needed for increased I and enhanced safety and pt was able to maintain F+ sitting balance throughout. Pt then transferred back into bed sit to supine with Eli and was repositioned in bed with maxA x 2. Pt was left supine in bed with call light in hand, tray table in place, and bed alarm activated for safety. Continue with rec D/C plan to SNF. TAJ Mullins/Aedola
--- NOTE | 2018-08-20 11:55 | NUR ---
PHYSICAL THERAPY Patient presented to therapy in supine with head of bed elevated and report of continued nausea. Patient agrees to therapy session. Patient was identified by name and . Patient performed supine to sitting at EOB transfer with MIN A X 1. Patient transferred STS to standard walker from EOB with MIN A X 2. Patient required verbal cues for pushing off bed railing and bed with hands. Patient ambulated 56' x 1 with CGA X 1 and other therapist manuvering IV line and O2 tank. Patient is on 2 liters of spO2. Patient transferred back to supine in bed MIN A X 1. Patient required verbal cues for patient to move self up in bed with MIN A X 2. Patient was left in supine with head of bed elevated, call light within reach, 2 liters of spO2 attached to wall outlet, and bed alarm activated. Patient was 1:1 with this SAFETY DEPOSIT BOXES CUSTODIAN for 20 minutes total. Patient is recommended to SNF upon discharge. ZOHRA GRADY SAFETY DEPOSIT BOXES CUSTODIAN
[2018-08-20 12:00] VITALS: BP 93/47
[2018-08-20 16:00] VITALS: BP 138/53
--- NOTE | 2018-08-20 17:00 | NUR ---
PT RESTING IN BED, NO COMPLAINTS VOICED, NO NAUSEA NOTED. IV FLUID INFUSING PER ORDER. CALL LIGHT WITHIN REACH.
--- NOTE | 2018-08-20 17:48 | NUR ---
PT NAUSEATED AND VOMITING AT THIS TIME, MEDICATED WITH ZOFRAN PER PRN ORDER. WILL MONITOR FOR EFFECTIVENESS.
--- NOTE | 2018-08-20 18:16 | NUR ---
PT STILL SOMEWHAT NAUSEATED, STATES THE ZOFRAN WAS MILDLY EFFECTIVE. RESTING IN BED, BED IN HIGH FOWLERS POSITION.
[2018-08-20 20:00] VITALS: BP 129/52
[2018-08-20 20:39] VITALS: BP 116/60
[2018-08-21] VITALS (10 sets, daily range): BP systolic 131–165; BP diastolic 45–79
--- NOTE | 2018-08-21 03:06 | NUR ---
24 HR chart check completed.
[2018-08-21 07:14] LABS: CREATININE 1.31 mg/dL (0.55-1.02); POTASSIUM 3.2 mmol/L (3.5-5.1)
--- NOTE | 2018-08-21 07:59 | NUR ---
Patient accepted to [facility], 3 night stay completed, patient is ok to go when medically stable for discharge.
--- NOTE | 2018-08-21 09:00 | NUR ---
case management visits with patient patient will go to [facility] when medically stable, case management will follow
--- NOTE | 2018-08-21 09:00 | NUR ---
OT NOTE Attempted to see pt this A.M. for OT session and upon arrival pt was supine in bed. Pt was requesting to rest at this due to having a procedure later today. Will continue with POC as able. TAJ Mullins/Adeola
--- NOTE | 2018-08-21 09:52 | NUR ---
PHYSICAL THERAPY Patient was supine in bed upon this TRAUMA COORDINATOR arriving in patient's room. Patient said she was not feeling well enough to participate in therapy. Patient sareports fatigue and not feeling well. No therapy provided this AM for the is reason. ZOHRA GRADY TRAUMA COORDINATOR
--- NOTE | 2018-08-21 12:10 | NUR ---
PATIENT OFF FLOOR IN STABLE CONDITION TO SURGERY AT THIS TIME
--- NOTE | 2018-08-21 15:10 | NUR ---
OT NOTE PATIENT OUT FOR A PROCEDURE THIS PM. WILL TRY BACK LATER TIME/DATE. CARTER VANG/Adeola
--- NOTE | 2018-08-21 15:15 | NUR ---
PATIENT ARRIVED BACK TO THE FLOOR VIA BED FROM SURGERY. PATIENT IN STABLE CONDITION. FAMILY AT BEDSIDE. PEG WAS PLACED WITHOUT DIFFUCULTY. RN WILL CONTINUE TO MONITOR THIS PATIENT
--- NOTE | 2018-08-21 15:36 | NUR ---
PHYSICAL THERAPY Patient not in room at this time due to being in surgery for procedure. Will check back with patient at a later time. ZOHRA GRADY ROTARY FILTER OPERATOR
--- NOTE | 2018-08-21 18:06 | NUR ---
PATIENT RESTING IN BED WITH EYES CLOSED AT THIS TIME. PATIENT DISPLAYS NO SIGNS OR SYMPTOMS OF DISTRESS ON 2LNC. RESPIRATIONS ARE QUIET AND UNLABORED. CALL LIGHT WITHIN REACH. BED ALARM ON FOR PATIENT SAFETY. RN WILL CONTINUE TO MONITOR
--- NOTE | 2018-08-21 20:00 | NUR ---
OSMOLYTE STARTED ON PT AT THIS TIME VIA PEG TUBE. 60 CC OF WATER BOLUSED THROUGH PEG. PT TOLERATED WELL. PLACEMENT OF PEG VERIFIED VIA AUSCULTATION. DRESSING TO PEG TUBE C/D/I. PT HAS NO COMPLAINTS AT THIS TIME. D5W INFUSING, SUPPLEMENTAL OXYGEN IN PLACE. RESPIRATIONS EASY AND UNLABORED. CALL LIGHT IN REACH.
--- NOTE | 2018-08-21 22:00 | NUR ---
APPROPRIATE MEDICATIONS GIVEN THROUGH PEG TUBE AT THIS TIME. TOLERATED WELL BY PT. 60 CC WATER BOLUS GIVEN. WILL CONTINUE TO MONITOR. CALL LIGHT IN REACH. ALL SAFETY MEASURES IN PLACE.
[2018-08-22] VITALS: BP 149/63
--- NOTE | 2018-08-22 | NUR ---
60 CC WATER BOLUS GIVEN. REPSIRATIONS EASY AND UNLABORED. NO S/S OF DISTRESS NOTED. CALL LIGHT IN REACH.
--- NOTE | 2018-08-22 02:38 | NUR ---
PT GIVEN TYLENOL 650 MG VIA PEG AT THIS TIME FOR S/S OF DISCOMFORT. WILL MONTIOR FOR EFFECTIVENESS. CALL LIGHT IN REACH.
--- NOTE | 2018-08-22 03:38 | NUR ---
TYLENOL EFFECTIVE PER PT
[2018-08-22 04:00] VITALS: BP 144/60
[2018-08-22 08:00] VITALS: BP 135/53
[2018-08-22 10:38] LABS: BUN 17 mg/dl (7-24); CHLORIDE 105 mmol/L (98-107); CREATININE 1.05 mg/dL (0.55-1.02); POTASSIUM 3.3 mmol/L (3.5-5.1); SODIUM 140 mmol/L (136-145)
[2018-08-22 12:00] VITALS: BP 111/52
[2018-08-22 16:00] VITALS: BP 119/53
[2018-08-22 20:00] VITALS: BP 134/42
--- NOTE | 2018-08-22 20:01 | NUR ---
PT RESTING IN BED, EYES CLOSED, SLEEPING. RESPIRATIONS EASY AND UNLABORED. OSMOLITE INFUSING INTO PEG TUBE WITH EASE. D5W INFUSING INTO RIGHT ARM IV SITE. NO S/S OF DISTRESS NOTED. HOB ELEVATED. ALL SAFETY MEASURES IN PLACE. CALL LIGHT IN REACH.
[2018-08-23] VITALS: BP 129/46
--- NOTE | 2018-08-23 05:00 | NUR ---
PT RESTING IN BED AT THIS TIME, IV D5W INFUSING PER ORDER. TUBE FEED INFUSING INTO PEG TUBE, DRESSING C/D/I. RESPIRATIONS EASY AND UNLABORED ON 3L NC. 60 CC FREE WATER FLUSH GIVEN EVERY 2 HOURS PER ORDERS. HOB ELEVATED 30 DEGREES. NO S/S OF DISTRESS NOTED. WILL CONTINUE TO MONITOR. CALL LIGHT IN REACH.
[2018-08-23 06:23] LABS: BASO % 0.4 % (0.0-1.0); EOS # 0.3 10*3/uL (0.0-0.4); EOS % 3.6 % (1.0-4.0); HEMATOCRIT 33.2 % (37.0-47.0); LYMPH # 1.1 10*3/uL (1.3-4.4); LYMPH % 15.2 % (27.0-41.0); MEAN CELL VOLUME 97.6 fl (81.0-99.0); MEAN CORPUSCULAR HGB 29.4 pg (27.0-31.0); MEAN CORPUSCULAR HGB CONC 30.1 g/dl (33.0-37.0); MEAN PLATELET VOLUME 11.7 fl (9.6-12.3); MONO # 0.5 10*3/uL (0.1-1.0); MONO % 6.5 % (3.0-9.0); NEUT # 5.5 10*3/uL (2.3-7.9); NEUT % 73.6 % (47.0-73.0); PLATELET COUNT AUTOMATED 191 10*3/uL (130-400); RED CELL DISTRI WIDTH 15.8 % (0-14.5); WHITE BLOOD COUNT 7.5 10*3/uL (4.8-10.8)
[2018-08-23 06:30] LABS: BUN 18 mg/dl (7-24); CHLORIDE 101 mmol/L (98-107); CREATININE 1.02 mg/dL (0.55-1.02); POTASSIUM 3.1 mmol/L (3.5-5.1); SODIUM 136 mmol/L (136-145)
[2018-08-23 08:00] VITALS: BP 155/57
--- NOTE | 2018-08-23 08:25 | NUR ---
24 HR chart check completed.
--- NOTE | 2018-08-23 09:07 | NUR ---
DR CASTILLO HERE TO ASSESS PATIENT AND DISCUSS PLAN OF CARE
--- NOTE | 2018-08-23 09:15 | NUR ---
DR CASTILLO WISHING TO D/C PATIENT TODAY IF BED STILL AVAILABLE. PATIENT TO GO TO [facility]. BALANCE ENGINEER TO CALL TO CHECK BED AVAILABILITY
--- NOTE | 2018-08-23 10:00 | NUR ---
dr mccarthy/ teofilo contacted and informed bed avail at [facility]
[2018-08-23] MEDS ORDERED: COREG3.125 MG PO (10:39)
[2018-08-23] MEDS ORDERED: PANTOPRAZOLE SO40 MG PO (10:39)
[2018-08-23] MEDS ORDERED: HYDRALAZINE HYD50 MG PO (10:39)
[2018-08-23] MEDS ORDERED: METOCLOPRAMIDE H5 M1 PO (10:39)
[2018-08-23] MEDS ORDERED: AMLODIPINE BESYL5 MG PO (10:39)
[2018-08-23] MEDS ORDERED: OSMOLITE 1.5 C237 ML PO (10:41)
[2018-08-23 12:00] VITALS: BP 105/54; BP 118/54
--- NOTE | 2018-08-23 12:15 | NUR ---
DR WILLARD CONTACTEDJORDAN FOR D/C FROM HIS [facility]
--- NOTE | 2018-08-23 16:00 | NUR ---
REPORT CALLED TO JOHN AT [facility]
--- NOTE | 2018-08-23 16:00 | NUR ---
AMBULANCE NOT ABLE TO PICK PATIENT UP AT 1600 ORIGINALLY ARRANGED D/T EMERGENCY. WILL BE HERE WHEN ABLE
--- NOTE | 2018-08-23 17:40 | NUR ---
[facility] TANG HERE TO [place] PATIENT AND BELONGINGS TO [facility]
--- NOTE | 2018-08-23 17:45 | NUR ---
Discharge instructions reviewed with patient/family. Patient receptive and verbalizes understanding. Written instructions given to patient/family. PATIENT AND BELONGINGS TRANSPORTED VIA GURNEY TO [facility] BY [facility] ANKUR GODOY
--- NOTE | 2018-08-24 07:47 | NUR ---
PHYSICAL THERAPY CO-SIGN I approve of the Phyical Therapy notes written above. MARTY APARICIO PT
--- NOTE | 2018-08-24 17:02 | NUR ---
OCCUPATIONAL THERAPY CO-SIGN I approve of the Occupational Therapy notes written above. CECIL MCCLENDON OTR/Adeola
== END 2018-08-23 17:45 | disposition other institution (70) | DRG 177 ==
LOC: ED 03:12 → 4E 05:19 → EDHOLD 05:19 → 4E 06:04
PROVIDERS: Emergency Medicine; Internal Medicine; Internal Medicine Cardiovascular Disease; Student in an Organized Health Care Education/Training Program; ADMIT Internal Medicine
PROC: BD1BYZZ Fluoroscopy of Mouth/Oropharynx using Other Contrast (ICD-10-PCS; principal; 2018-08-13)
PROC: 0DB68ZX Excision of Stomach, Via Natural or Artificial Opening Endoscopic, Diagnostic (ICD-10-PCS; 2018-08-19)
PROC: 0DH63UZ Insertion of Feeding Device into Stomach, Percutaneous Approach (ICD-10-PCS; 2018-08-21)
DX: J69.0 Pneumonitis due to inhalation of food and vomit (principal); N17.0 Acute kidney failure with tubular necrosis; E43 Unspecified severe protein-calorie malnutrition; I24.8 Other forms of acute ischemic heart disease; D68.59 Other primary thrombophilia; J96.11 Chronic respiratory failure with hypoxia; I16.1 Hypertensive emergency; I13.0 Hypertensive heart and chronic kidney disease with heart failure and stage 1 through stage 4 chronic kidney disease, or unspecified chronic kidney disease; K22.10 Ulcer of esophagus without bleeding; I50.42 Chronic combined systolic (congestive) and diastolic (congestive) heart failure; I35.0 Nonrheumatic aortic (valve) stenosis; K21.0 Gastro-esophageal reflux disease with esophagitis; K29.70 Gastritis, unspecified, without bleeding; N18.3 Chronic kidney disease, stage 3 (moderate); K22.5 Diverticulum of esophagus, acquired; D64.9 Anemia, unspecified; E87.8 Other disorders of electrolyte and fluid balance, not elsewhere classified; Z96.1 Presence of intraocular lens; K44.9 Diaphragmatic hernia without obstruction or gangrene; R62.7 Adult failure to thrive; R13.10 Dysphagia, unspecified; K27.9 Peptic ulcer, site unspecified, unspecified as acute or chronic, without hemorrhage or perforation; R27.0 Ataxia, unspecified; R73.9 Hyperglycemia, unspecified; I48.0 Paroxysmal atrial fibrillation; G47.33 Obstructive sleep apnea (adult) (pediatric); M19.90 Unspecified osteoarthritis, unspecified site; M81.0 Age-related osteoporosis without current pathological fracture; E78.5 Hyperlipidemia, unspecified; J43.9 Emphysema, unspecified; M10.9 Gout, unspecified; E66.9 Obesity, unspecified; I07.1 Rheumatic tricuspid insufficiency; I27.20 Pulmonary hypertension, unspecified; I25.10 Atherosclerotic heart disease of native coronary artery without angina pectoris; Z99.81 Dependence on supplemental oxygen; Z95.5 Presence of coronary angioplasty implant and graft; I25.2 Old myocardial infarction; Z79.899 Other long term (current) drug therapy; Z86.718 Personal history of other venous thrombosis and embolism; Z88.8 Allergy status to other drugs, medicaments and biological substances; Z90.49 Acquired absence of other specified parts of digestive tract; Z98.49 Cataract extraction status, unspecified eye

== ENCOUNTER → 2018-09-08 | Outpatient (CLI) | payer MEDICARE, OTHER ==
[~2018-09-08] MED LIST changes: +ALDACTONE50 M1 PO; +COREG3.125 MG PO; +DEMADEX20 M1 PO; +ISOSORBIDE DINI PO; +Isordil20 MG PO; +MARINOL10 MG PO; +METOCLOPRAMIDE H5 M1 PO; +OMEPRAZOLE MAGN20 MG PO; +OSMOLITE 1.5 C237 ML PO; +PANTOPRAZOLE SO40 MG PO; +REMERON15 M2 PO; +Zaroxolyn,Diul2.5 MG PO
== END | disposition home or self-care (01) ==
LOC: CT 01:47
DX: K57.30 Diverticulosis of large intestine without perforation or abscess without bleeding (principal); K29.70 Gastritis, unspecified, without bleeding; J90 Pleural effusion, not elsewhere classified; R18.8 Other ascites; J98.11 Atelectasis; K44.9 Diaphragmatic hernia without obstruction or gangrene; I51.7 Cardiomegaly; I25.10 Atherosclerotic heart disease of native coronary artery without angina pectoris; Z90.49 Acquired absence of other specified parts of digestive tract

== ENCOUNTER → 2018-09-11 | Day surgery (SDC) | payer MEDICARE, OTHER ==
[~2018-09-11] VITALS: Ht 160 cm; Wt 78.0 kg
--- NOTE | ~2018-09-11 | O ---
[place], [place] OPERATIVE NOTE NAME: ROCKY OWENS UNIT #: [id number] ROOM: DOCTOR: MONTSE MAN,MALU BIRTHDATE: [birth year] DOS: 09/11/2018 HISTORY OF PRESENT ILLNESS: This is an 82-year-old who was residing in a assisted with malfunctioning PEG tube painful in infusion. The patient is residing in a assisted, painful infusions of PEG site and noninfusing PEG site at the same time. The patient was seen in outpatient surgery [facility]. PROCEDURE: Today's procedure part of investigation is panendoscopy plus removal of migrated PEG tube percutaneously and I and D cleaning of the ostomy site from the residual feed and placement of the G-tube size 18 under direct visualization. REPORT: After putting the patient in left lateral position and application of lubricant to the scope, the scope was introduced. Thereafter, under direct visualization, I advanced through the length of esophagus without difficulty. There are numerous small esophageal varicosity blebs all along the length of the esophagus. 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 This was orally extracted from the base of the diverticulum. Scope was further negotiated into gastric pouch. There is no evidence of mushroom of gastrostomy tube in the stomach. Duodenal patency assured. At this stage, after removal of the existing PEG, which has migrated and malfunctioned, now the ostomy site is sterilized and a MIGUEL size 18 was introduced in the same ostomy and the area was saturated with Neosporin and Betadine. A 15 mL of saline was infuse in the existing G-tube. Photographic series was obtained from the location of the G-tube. Air was suctioned out. The patient was extubated, tolerated the procedure well. IMPRESSION: EGD for removal of foreign body from Zenker's diverticulum. Numerous esophageal varicosity blebs, migrated malfunctioning PEG tube, which is removed, placement of G-tube size 18. PLAN AND DISCUSSION: Resumption of usage of the new G-tube and back to the same existing diet. [place], [place] OPERATIVE NOTE NAME: ROCKY OWENS UNIT #: [id number] ROOM: DOCTOR: MONTSE MAN,MALU BIRTHDATE: [birth year] MALU WILLARD MD CM:OPRECORD:OPERATIVE NOTE [id number] MALU WILLARD MD 09/16/18 0808 interface
[2018-09-11 13:08] VITALS: BP 144/57
[2018-09-11 16:01] VITALS: BP 160/70
[2018-09-11 16:31] VITALS: BP 172/70
== END | disposition home or self-care (01) ==
LOC: SDC 09-10 12:30
DX: K94.23 Gastrostomy malfunction (principal); K22.5 Diverticulum of esophagus, acquired; I85.00 Esophageal varices without bleeding; E78.5 Hyperlipidemia, unspecified; K21.9 Gastro-esophageal reflux disease without esophagitis; I25.2 Old myocardial infarction; J44.9 Chronic obstructive pulmonary disease, unspecified; I25.10 Atherosclerotic heart disease of native coronary artery without angina pectoris; E66.9 Obesity, unspecified; M19.90 Unspecified osteoarthritis, unspecified site; I13.0 Hypertensive heart and chronic kidney disease with heart failure and stage 1 through stage 4 chronic kidney disease, or unspecified chronic kidney disease; I50.9 Heart failure, unspecified; N18.9 Chronic kidney disease, unspecified; M81.8 Other osteoporosis without current pathological fracture; G47.30 Sleep apnea, unspecified; F41.9 Anxiety disorder, unspecified; F32.9 Major depressive disorder, single episode, unspecified; Z95.818 Presence of other cardiac implants and grafts; Z98.890 Other specified postprocedural states; Z90.49 Acquired absence of other specified parts of digestive tract; Z86.718 Personal history of other venous thrombosis and embolism; Z79.899 Other long term (current) drug therapy; Z79.82 Long term (current) use of aspirin; Z98.41 Cataract extraction status, right eye; Z68.30 Body mass index [BMI] 30.0-30.9, adult; Z83.3 Family history of diabetes mellitus; Z82.49 Family history of ischemic heart disease and other diseases of the circulatory system

== ENCOUNTER → 2018-09-24 | Day surgery (SDC) | payer MEDICARE, OTHER ==
[2018-09-24 14:31] LABS: BODY FLUID WBC 18 /uL
[2018-09-24 15:13] LABS: BF LYMPHOCYTES 17 %; BF MACROPHAGES 71 %; BF NEUTROPHILS 12 %
== END | disposition home or self-care (01) ==
PROVIDERS: Internal Medicine
DX: R18.8 Other ascites (principal); I13.0 Hypertensive heart and chronic kidney disease with heart failure and stage 1 through stage 4 chronic kidney disease, or unspecified chronic kidney disease; N18.3 Chronic kidney disease, stage 3 (moderate); I50.32 Chronic diastolic (congestive) heart failure; J44.9 Chronic obstructive pulmonary disease, unspecified; G47.33 Obstructive sleep apnea (adult) (pediatric); K21.9 Gastro-esophageal reflux disease without esophagitis; M10.9 Gout, unspecified; I48.0 Paroxysmal atrial fibrillation; M19.90 Unspecified osteoarthritis, unspecified site; I25.10 Atherosclerotic heart disease of native coronary artery without angina pectoris; J96.11 Chronic respiratory failure with hypoxia; Z93.1 Gastrostomy status; Z86.2 Personal history of diseases of the blood and blood-forming organs and certain disorders involving the immune mechanism

== ENCOUNTER 2018-10-02 12:08 | Inpatient (IN) | payer MEDICARE, OTHER ==
[~2018-10-02] VITALS: Ht 167.6 cm; Wt 81.7 kg
--- NOTE | ~2018-10-02 | PR ---
[place], [place] PROGRESS NOTE [id number] UNIT #: [id number] ROOM: 425 DOCTOR: SENAIT LEGER MD BIRTHDATE: [birth year] DOS: 10/04/2018 SUBJECTIVE: The patient was seen and examined. She was awake and alert. She had a little shortness of breath it seems earlier. Fluids seemed to have been discontinued. She does admit to feeling better. She denies nausea or vomiting. PHYSICAL EXAMINATION: VITAL SIGNS: Temperature 97.6, pulse 66, respiratory rate 16, blood pressure 172/57. HEENT: Shows no JVD. LUNGS: Diminished breath sounds with no wheeze. HEART: S1, S2. No rub. ABDOMEN: Soft, nontender. EXTREMITIES: Have trace edema. LABORATORY DATA: Hemoglobin 8.7, white count 7.7, platelets 127. Sodium 144, potassium 4.1, CO2 of 34, BUN 89, creatinine 2.95, glucose 73, calcium of 8.6. ASSESSMENT AND PLAN: 1. Acute kidney injury, which continues to improve. This seems to be related to a prerenal/acute tubular necrosis picture. The patient is now off IV fluids. Would encourage oral intake. Replace electrolytes as needed. Continue to monitor progress. 2. Anemia. Transfuse as felt necessary. Monitor H and H. 3. Mild thrombocytopenia. Continue to follow trends. 4. Hypertension. Continue medications. Adjust meds as needed. SENAIT LEGER MD CM:PNTRANS [id number] SENAIT LEGER MD 10/04/182321 interface
--- NOTE | ~2018-10-02 | PR ---
[place], [place] PROGRESS NOTE [id number] UNIT #: [id number] ROOM: 425 DOCTOR: SENAIT LEGER MD BIRTHDATE: [birth year] DOS: 10/03/2018 NEPHROLOGY FOLLOWUP NOTE SUBJECTIVE: The patient was seen and examined. She is awake and alert. She was eating lunch when I saw her. She was feeling a little bit better. She denies shortness of breath to me. She does have a [place] in place and was complaining of some discomfort in that area. Otherwise appeared to be doing well. PHYSICAL EXAMINATION: VITAL SIGNS: Temperature 97.8, pulse 61, respiration rate 18, blood pressure 133/50. HEENT: Shows no JVD. Sclerae are anicteric. LUNGS: Diminished breath sounds with no wheeze. HEART: S1, S2. No rub. ABDOMEN: Soft, nontender. There is no organomegaly. EXTREMITIES: Have trace edema. SKIN: Showed no rash. LABORATORY DATA: Hemoglobin 8.1, white count of 6.8, platelets 120, BUN 98, creatinine 3.2, glucose 74. Sodium 143, potassium 4.4, CO2 of 35, calcium 9.1, phosphorus 3.8, magnesium 2.6, albumin 2.1. Urine culture was negative. Abdominal ultrasound was noted. There was no evidence of hydronephrosis. Urine sodium 55, urine chloride 47. ASSESSMENT AND PLAN: 1. Acute kidney injury, most likely related to a prerenal/acute tubular necrosis like picture. The patient has slight improvement in her renal function. We will continue IV fluids for now. Monitor volume status carefully. Replace electrolytes as needed. Currently, there is no need for dialysis. 2. Anemia. Follow H and H. Transfuse as necessary. 3. Abdominal pain, seems to be clinically improving. Continue supportive care. 4. PEG tube malfunction. Management per the primary service. [place], [place] PROGRESS NOTE NAME: ROCKY OWENS UNIT #: [id number] ROOM: 425 DOCTOR: SENAIT LEGER MD BIRTHDATE: [birth year] SENAIT LEGER MD CM:PNTRANS [id number] SENAIT LEGER MD 10/04/18 1357 interface
--- NOTE | ~2018-10-02 | CON ---
[place], [place] REPORT OF CONSULTATION [facility]: [facility]Y [facility]ENS [id number] UNIT #: [id number] ROOM: 425 DOCTOR: MALU WILLARD MD BIRTHDATE: [birth year] DOS: 10/05/2018 GASTROENDOSCOPIC CONSULTATION HISTORY OF PRESENT ILLNESS: This is an 82-year-old patient who is residing in a mcc and has had previous PEG tube placed. She feels overfed. She does not like to have the tube in place any longer and she wants it removed. She is telling me, "I do not like it because it is not a natural part of my body." She appears to have been very well protein-calorie fed and indeed on the obese side for sure. She has been here a few days and her latest blood work shows basic metabolic panel, BUN and creatinine of 84 and 2.8, sodium of 146. CBC - white blood cell 6.8, H and H of 8 and 27, macrocytic indices with thrombocytopenia. Urine cultures have been negative. Ultrasound of the abdomen; coarse and heterogeneous liver texture consistent with cirrhotic liver, mild splenomegaly, increased echogenicity and thinning of right cortex consistent with intrinsic renal disease, all has been recognized. Comprehensive metabolic panel repeatedly has been readdressed. PAST MEDICAL HISTORY: Associated chronic renal disease, atrial fibrillation, obesity, aortic stenosis, COPD, coronary artery disease, early dementia, gastroesophageal reflux, hypertensive history, congestive diastolic failure history. PAST SURGICAL HISTORY: Status post PEG tube. SOCIAL HISTORY: Nonsmoker, nonalcohol consumer. FAMILY HISTORY: Noncontributory. ALLERGIES: TO GABAPENTIN. MEDICATIONS: List has been reviewed. REVIEW OF SYSTEMS: In general, HEENT: Denies double vision, blurred vision. RESPIRATORY: Denies acute shortness of breath. CARDIOVASCULAR: Denies acute chest pain. DIGESTIVE SYSTEM: Old history of dysphagia and malnutrition that she received PEG for it before. PHYSICAL EXAMINATION: VITAL SIGNS: Stable. HEENT: Head normocephalic, nontraumatic. Mouth and buccal mucosa benign. NECK: Supple, no thyromegaly, no cervical lymphadenopathy. CHEST: Symmetric anatomy, equal expansion. No wheeze, no rhonchi. HEART: Atrial fibrillation with a very loud systolic murmur at left sternal border, 3/6. ABDOMEN: Morbidly obese, large and soft. PEG tube in place. No tenderness. EXTREMITIES: Trace pedal edema. NEUROLOGIC: Alert and oriented. No encephalopathy. [place], [place] REPORT OF CONSULTATION NAME: ROCKY OWENS UNIT #: [id number] ROOM: 425 DOCTOR: MALU WILLARD MD BIRTHDATE: [birth year] IMPRESSION AND PLAN: Status post previous history of protein-calorie malnutrition and history of PEG feeding in a mcc. She is overfed as far as the calories that she is taking. She does not need the tube; however, I have discussed with her that it is easy to remove her PEG tube. However, I will wait till herself and her family in consult make a decision regarding removal of the PEG, so that we do not be obligated to replace it in future. At the present time, no PEG feeding. Diet 1800 renal diet and limited to p.o. intake and clinical reassessment. OTHER ADJUNCTIVE DIAGNOSES: As outlined above in paragraph of past medical, surgical history. Thank you very much indeed. MALU WILLARD MD CM:CONSTR:REPORT OF CONSULTATION 1434 10/06/18 0308 interface
[~2018-10-02 12:08] MED LIST changes: -ALDACTONE50 M1 PO; -DEMADEX20 M1 PO; -ISOSORBIDE DINI PO; -Isordil20 MG PO; -MARINOL10 MG PO; -OMEPRAZOLE MAGN20 MG PO; -REMERON15 M2 PO; -Zaroxolyn,Diul2.5 MG PO
[2018-10-02 12:09] VITALS: BP 108/40
[2018-10-02 12:55] LABS: BASO % 0.1 % (0.0-1.0); EOS # 0.1 10*3/uL (0.0-0.4); HEMOGLOBIN 8.1 g/dl (12.0-16.0); LYMPH # 0.9 10*3/uL (1.3-4.4); LYMPH % 12.5 % (27.0-41.0); MEAN CELL VOLUME 101.6 fl (81.0-99.0); MEAN CORPUSCULAR HGB 31.6 pg (27.0-31.0); MEAN CORPUSCULAR HGB CONC 31.2 g/dl (33.0-37.0); MEAN PLATELET VOLUME 12.5 fl (9.6-12.3); MONO # 0.3 10*3/uL (0.1-1.0); MONO % 4.9 % (3.0-9.0); NEUT # 5.6 10*3/uL (2.3-7.9); NEUT % 81.1 % (47.0-73.0); PLATELET COUNT AUTOMATED 123 10*3/uL (130-400); RED BLOOD COUNT 2.56 10*6/uL (4.10-5.10); RED CELL DISTRI WIDTH 17.1 % (0-14.5); WHITE BLOOD COUNT 6.9 10*3/uL (4.8-10.8)
[2018-10-02 13:04] LABS: ACT PARTIAL THROMBO TIME 23.2 SECONDS (20.8-31.5); INTERNATIONAL NORM RATIO 1.1 (2.0-3.5)
[2018-10-02 13:17] LABS: ALBUMIN 2.1 gm/dl (3.1-4.5); CREATININE 3.49 mg/dL (0.55-1.02); POTASSIUM 4.7 mmol/L (3.5-5.1)
[2018-10-02 13:19] LABS: BILIRUBIN NEGATIVE (NEGATIVE); BLOOD NEGATIVE (NEGATIVE); CLARITY SL CLOUDY (CLEAR); COLOR YELLOW (YELLOW); GLUCOSE NEGATIVE (NEGATIVE); KETONE NEGATIVE (NEGATIVE); LEUKO ESTERASE NEGATIVE (NEGATIVE); NITRITE NEGATIVE (NEGATIVE); PH 5.5 (5.0-9.0)
[2018-10-02 13:34] LABS: BACTERIA 1+; CALCIUM OXALATE CRYSTALS TR
[2018-10-02 16:25] VITALS: BP 122/69
[2018-10-02] MEDS ORDERED: DEMADEX20 M1 PO (18:37)
[2018-10-02] MEDS ORDERED: MARINOL10 MG PO (18:38)
[2018-10-02] MEDS ORDERED: ISOSORBIDE DINI PO (18:39)
[2018-10-02] MEDS ORDERED: OMEPRAZOLE MAGN20 MG PO (18:40)
[2018-10-02] MEDS ORDERED: ALDACTONE50 M1 PO (18:41)
[2018-10-02] MEDS ORDERED: REMERON15 M2 PO (18:41)
[2018-10-02] MEDS ORDERED: Zaroxolyn,Diul2.5 MG PO (18:42)
[2018-10-02 20:00] VITALS: BP 129/54
[2018-10-03] VITALS: BP 137/45
[2018-10-03 06:55] LABS: BASO % 0.4 % (0.0-1.0); EOS # 0.2 10*3/uL (0.0-0.4); EOS % 2.8 % (1.0-4.0); HEMATOCRIT 26.1 % (37.0-47.0); HEMOGLOBIN 8.1 g/dl (12.0-16.0); LYMPH # 1.1 10*3/uL (1.3-4.4); LYMPH % 16.5 % (27.0-41.0); MEAN CELL VOLUME 101.6 fl (81.0-99.0); MEAN CORPUSCULAR HGB 31.5 pg (27.0-31.0); MEAN PLATELET VOLUME 12.5 fl (9.6-12.3); MONO # 0.5 10*3/uL (0.1-1.0); MONO % 6.8 % (3.0-9.0); NEUT % 73.2 % (47.0-73.0); PLATELET COUNT AUTOMATED 120 10*3/uL (130-400); RED BLOOD COUNT 2.57 10*6/uL (4.10-5.10); RED CELL DISTRI WIDTH 17.2 % (0-14.5); WHITE BLOOD COUNT 6.8 10*3/uL (4.8-10.8)
[2018-10-03 07:26] LABS: ALBUMIN 2.1 gm/dl (3.1-4.5); POTASSIUM 4.4 mmol/L (3.5-5.1)
[2018-10-03 07:36] LABS: CREATININE 3.2 mg/dL (0.55-1.02); PHOSPHOROUS 3.8 mg/dL (2.5-4.9); TOTAL PROTEIN 5.8 gm/dL (6.4-8.2)
[2018-10-03 08:00] VITALS: BP 132/46
[2018-10-03 12:00] VITALS: BP 133/50
[2018-10-03 16:00] VITALS: BP 140/51
[2018-10-03 20:00] VITALS: BP 131/50
[2018-10-04] VITALS: BP 137/47
[2018-10-04 06:14] LABS: BASO % 0.4 % (0.0-1.0); EOS # 0.1 10*3/uL (0.0-0.4); EOS % 1.8 % (1.0-4.0); HEMATOCRIT 28.5 % (37.0-47.0); HEMOGLOBIN 8.7 g/dl (12.0-16.0); LYMPH # 1.3 10*3/uL (1.3-4.4); LYMPH % 17.4 % (27.0-41.0); MEAN CELL VOLUME 101.4 fl (81.0-99.0); MEAN CORPUSCULAR HGB CONC 30.5 g/dl (33.0-37.0); MEAN PLATELET VOLUME 12.5 fl (9.6-12.3); MONO # 0.5 10*3/uL (0.1-1.0); NEUT # 5.7 10*3/uL (2.3-7.9); NEUT % 74.1 % (47.0-73.0); PLATELET COUNT AUTOMATED 127 10*3/uL (130-400); RED BLOOD COUNT 2.81 10*6/uL (4.10-5.10); RED CELL DISTRI WIDTH 17.3 % (0-14.5); WHITE BLOOD COUNT 7.7 10*3/uL (4.8-10.8)
[2018-10-04 06:38] LABS: CREATININE 2.95 mg/dL (0.55-1.02); POTASSIUM 4.1 mmol/L (3.5-5.1)
[2018-10-04 08:00] VITALS: BP 172/57
[2018-10-04 12:00] VITALS: BP 155/54
[2018-10-04 16:00] VITALS: BP 150/60
[2018-10-04 20:00] VITALS: BP 147/51
[2018-10-05] VITALS: BP 144/43
[2018-10-05 06:11] LABS: BASO % 0.6 % (0.0-1.0); EOS # 0.3 10*3/uL (0.0-0.4); EOS % 4.1 % (1.0-4.0); HEMOGLOBIN 8.3 g/dl (12.0-16.0); LYMPH # 1.4 10*3/uL (1.3-4.4); LYMPH % 20.2 % (27.0-41.0); MEAN CELL VOLUME 101.5 fl (81.0-99.0); MEAN CORPUSCULAR HGB 31.2 pg (27.0-31.0); MEAN CORPUSCULAR HGB CONC 30.7 g/dl (33.0-37.0); MEAN PLATELET VOLUME 12.6 fl (9.6-12.3); MONO # 0.4 10*3/uL (0.1-1.0); MONO % 6.3 % (3.0-9.0); NEUT # 4.7 10*3/uL (2.3-7.9); NEUT % 68.5 % (47.0-73.0); PLATELET COUNT AUTOMATED 125 10*3/uL (130-400); RED BLOOD COUNT 2.66 10*6/uL (4.10-5.10); RED CELL DISTRI WIDTH 17.2 % (0-14.5); WHITE BLOOD COUNT 6.8 10*3/uL (4.8-10.8)
[2018-10-05 06:39] LABS: CREATININE 2.87 mg/dL (0.55-1.02); POTASSIUM 3.8 mmol/L (3.5-5.1)
[2018-10-05 07:44] VITALS: BP 125/50
[2018-10-05 11:49] VITALS: BP 125/45
[2018-10-05 16:00] VITALS: BP 146/52
[2018-10-05 20:00] VITALS: BP 136/49
[2018-10-06] VITALS: BP 145/49
[2018-10-06 07:48] LABS: BASO % 0.4 % (0.0-1.0); EOS # 0.3 10*3/uL (0.0-0.4); EOS % 3.7 % (1.0-4.0); HEMATOCRIT 27.4 % (37.0-47.0); HEMOGLOBIN 8.4 g/dl (12.0-16.0); LYMPH # 1.4 10*3/uL (1.3-4.4); MEAN CELL VOLUME 103.4 fl (81.0-99.0); MEAN CORPUSCULAR HGB 31.7 pg (27.0-31.0); MEAN CORPUSCULAR HGB CONC 30.7 g/dl (33.0-37.0); MEAN PLATELET VOLUME 11.6 fl (9.6-12.3); MONO # 0.4 10*3/uL (0.1-1.0); MONO % 5.7 % (3.0-9.0); NEUT # 4.8 10*3/uL (2.3-7.9); NEUT % 69.9 % (47.0-73.0); PLATELET COUNT AUTOMATED 128 10*3/uL (130-400); RED BLOOD COUNT 2.65 10*6/uL (4.10-5.10); RED CELL DISTRI WIDTH 17.2 % (0-14.5); WHITE BLOOD COUNT 6.8 10*3/uL (4.8-10.8)
[2018-10-06 08:00] VITALS: BP 169/47
[2018-10-06 08:06] LABS: CREATININE 2.51 mg/dL (0.55-1.02); POTASSIUM 3.9 mmol/L (3.5-5.1)
[2018-10-06 12:00] VITALS: BP 160/51
== END 2018-10-06 11:50 | disposition other institution (70) | DRG 682 ==
LOC: ED 12:08 → 4E 14:43 → EDHOLD 14:43 → 4E 16:38
PROVIDERS: Internal Medicine; Internal Medicine Nephrology; Nurse Practitioner Family; Registered Nurse; ADMIT Emergency Medicine
DX: N17.0 Acute kidney failure with tubular necrosis (principal); E43 Unspecified severe protein-calorie malnutrition; J96.11 Chronic respiratory failure with hypoxia; I48.1 Persistent atrial fibrillation; I13.0 Hypertensive heart and chronic kidney disease with heart failure and stage 1 through stage 4 chronic kidney disease, or unspecified chronic kidney disease; I50.32 Chronic diastolic (congestive) heart failure; K94.23 Gastrostomy malfunction; E86.0 Dehydration; R10.12 Left upper quadrant pain; D64.9 Anemia, unspecified; E78.5 Hyperlipidemia, unspecified; N18.3 Chronic kidney disease, stage 3 (moderate); G47.33 Obstructive sleep apnea (adult) (pediatric); M19.90 Unspecified osteoarthritis, unspecified site; M81.0 Age-related osteoporosis without current pathological fracture; K21.9 Gastro-esophageal reflux disease without esophagitis; I35.0 Nonrheumatic aortic (valve) stenosis; K57.30 Diverticulosis of large intestine without perforation or abscess without bleeding; J43.9 Emphysema, unspecified; M10.9 Gout, unspecified; R00.1 Bradycardia, unspecified; Z66 Do not resuscitate; Z51.5 Encounter for palliative care; Z96.1 Presence of intraocular lens; D69.6 Thrombocytopenia, unspecified; F03.90 Unspecified dementia, unspecified severity, without behavioral disturbance, psychotic disturbance, mood disturbance, and anxiety; E66.01 Morbid (severe) obesity due to excess calories; Y83.3 Surgical operation with formation of external stoma as the cause of abnormal reaction of the patient, or of later complication, without mention of misadventure at the time of the procedure; Y92.89 Other specified places as the place of occurrence of the external cause; Z88.8 Allergy status to other drugs, medicaments and biological substances; Z86.718 Personal history of other venous thrombosis and embolism; I25.2 Old myocardial infarction; Z95.5 Presence of coronary angioplasty implant and graft; Z90.49 Acquired absence of other specified parts of digestive tract; Z98.42 Cataract extraction status, left eye; Z98.41 Cataract extraction status, right eye; Z80.9 Family history of malignant neoplasm, unspecified; Z83.3 Family history of diabetes mellitus; Z82.49 Family history of ischemic heart disease and other diseases of the circulatory system; Z79.82 Long term (current) use of aspirin; Z79.899 Other long term (current) drug therapy; Z79.02 Long term (current) use of antithrombotics/antiplatelets; Z68.29 Body mass index [BMI] 29.0-29.9, adult

== ENCOUNTER 2018-10-09 16:31 | Inpatient (IN) | payer MEDICARE, OTHER ==
[~2018-10-09] VITALS: Ht 170.1 cm; Wt 79.9 kg
--- NOTE | ~2018-10-09 | PR ---
[place], [place] PROGRESS NOTE NAME[id number] UNIT #: [id number] ROOM: 419 DOCTOR: SENAIT LEGER MD BIRTHDATE: [birth year] DOS: 10/12/2018 NEPHROLOGY FOLLOWUP NOTE SUBJECTIVE: The patient was seen and examined. Her family is at bedside. She is much more lethargic today. She was arousable, but appeared very sleepy. Apparently, she refused her paracentesis today. She was on nasal cannula. PHYSICAL EXAMINATION: VITAL SIGNS: Showed temperature 98.5, pulse 81, respiration rate 18, blood pressure 150/63. HEENT: No JVD. Sclerae are anicteric. Mucous membranes appear dry. Pharynx is clear. LUNGS: Diminished breath sounds with no wheeze. HEART: S1, S2. No rub, thrill or gallop. ABDOMEN: Soft, mild distention with no organomegaly. EXTREMITIES: Had 2-3+ edema. SKIN: Showed no rash. LABORATORY DATA: Hemoglobin 7.9, white count of 5.7 and platelets 112. Sodium 145, potassium 3.3, CO2 of 34, BUN 78, creatinine 3.4, glucose 87, calcium 8.8. ASSESSMENT AND PLAN: 1. Acute kidney injury on chronic kidney disease. Her true baseline creatinine is not clear at this point. Overall, the patient has a stable renal function. The etiology of her elevated BUN and creatinine is not clear, suspect a prerenal/acute tubular necrosis picture. She has adequate urine output. Replace potassium. She continues to receive IV diuretics. Her true volume status is not clear. She has edema and anasarca, but likely is intravascularly volume depleted. She clinically has an unclear true volume status at this point. She has a metabolic alkalosis. I am not clear if this is related to volume contraction versus an element of compensation from respiratory acidosis. 2. Edema/anasarca. Diuretics per the primary service as above. Consider getting albumin if diuretics are to continue. 3. Anemia. Transfuse as needed. 4. Lethargy/encephalopathy, likely due to metabolic factors. She does have a UTI. This is being treated with IV antibiotics. Would check an ammonia level. Consider an ABG as well. There may be a uremic component, although previous BUN and creatinine levels were somewhat worse and she had a better mental status. 5. Hypertension. Medications are ongoing. Her blood pressures appear to be labile. Avoid hypotension. [place], [place] PROGRESS NOTE NAME: ROCKY OWENS UNIT #: [id number] ROOM: [facility] DOCTOR: SENAIT LEGER MD BIRTHDATE: [birth year] SENAIT LEGER MD CM:PNTRANS 1429 8 SENAIT LEGER MD 10/13/18 0520 interface
--- NOTE | ~2018-10-09 | EKG ---
[place], [place] ELECTROCARDIOGRAM REPORT NAME: ROCKY OWENS UNIT #: [id number] ROOM: 419 DOCTOR: CAREN DRAFT REPORT BIRTHDATE: [birth year] [facility] Test Date: 2018-10-09 Test Time: 17:27:37 Pat Name: ROCKY OWENS Department: Room: 419 Gender: F Embroiderer: Chelle Malone : 1935 Requested By: ROBBIE HIRSCH Order Number: [id number] Reading MD: Devi Varela MD Measurements Intervals [place] Rate: 85 P: -48 ME: 176 QRS: -35 QRSD: 85 T: 30 QT: 401 QTc: 477 Interpretive Statements Sinus or ectopic atrial rhythm Abnormal R-wave progression, late transition Left ventricular hypertrophy Inferior infarct, old Compared to ECG 08/12/2018 11:09:39 Ectopic atrial rhythm now present Left ventricular hypertrophy now present Myocardial infarct finding now present Sinus rhythm no longer present Left-axis deviation no longer present Electronically Signed On 10-12-2018 15:27:21 PST by Devi Varela MD CM:EKGRPT:ELECTROCARDIOGRAM REPORT 1727 1527 ROBBIE BEVERLY DRAFT REPORT ROBBIE HIRSCH DO
--- NOTE | ~2018-10-09 | EKG ---
[place], [place] ELECTROCARDIOGRAM REPORT NAME: ROCKY OWENS UNIT #: [id number] ROOM: 419 DOCTOR: CAREN DRAFT REPORT BIRTHDATE: [birth year] [facility] Test Date: 2018-10-10 Test Time: 06:35:44 Pat Name: ROCKY OWENS Department: Room: 419 1 Gender: F Retail Business Development Manager: Christel Tejada : 1935 Requested By: TRACY HARDWICK Order Number: [id number] Reading MD: Devi Varela MD Measurements Intervals [place] Rate: 82 P: -47 ID: [id number] QRS: -42 QRSD: 92 T: -1 QT: 396 QTc: 463 Interpretive Statements Sinus or ectopic atrial rhythm, baseline artifact. Inferior infarct, age indeterminate Compared to ECG 08/12/2018 11:09:39 Myocardial infarct finding now present Sinus rhythm no longer present Left-axis deviation no longer present Electronically Signed On 10-12-2018 15:31:05 PST by Devi Varela MD CM:EKGRPT:ELECTROCARDIOGRAM REPORT 0635 1531 TRACY BEVERLY DRAFT REPORT TRACY HARDWICK DO
--- NOTE | ~2018-10-09 | PR ---
[place], [place] PROGRESS NOTE NAME: ROCKY OWENS UNIT #: [id number] ROOM: 419 DOCTOR: BARBARA FELIPE MD BIRTHDATE: [birth year] DOS: 10/12/2018 SUBJECTIVE: The patient was admitted few days ago. She is very lethargic, short of breath and pale looking. She had coronary artery disease and stents were deployed previously, it is just a few months ago as well. She had an echocardiogram done in this hospital, which had demonstrated a severe calcific aortic stenosis with peak gradient of 66 mmHg and she has severe pulmonary hypertension with pulmonary artery systolic pressure of 73 mmHg and she had moderate tricuspid regurgitation. She has no chest pain, but she is short of breath, does not complain of any nausea. PHYSICAL EXAMINATION: GENERAL: This is a patient who is very lethargic last year. She was alert and was ambulatory. She looks pale. She is not diaphoretic. VITAL SIGNS: Pulse is 96, blood pressure 140/55. NECK: JVP is about 8 cm with a positive AJR. CARDIOVASCULAR: Auscultation reveals late peaking systolic murmur over the aortic area and A2 is not audible. She has severe edema in both legs. Chest x-ray had shown pulmonary edema. IMPRESSION: 1. This patient has coronary artery disease, which is not a problem. 2. She has severe biventricular failure and this is due to severe calcific aortic stenosis and severe pulmonary hypertension. Renal function is very abnormal. BUN 78, creatinine 3.42 and hemoglobin is 7.9 g/dL. Fluid balance was -560 mL for the last 24 hours. She had quite a bit of elevated pressure in the right side. I think increasing dose of furosemide may be more adventitious to her. Therefore, furosemide is being increased to 80 mg b.i.d. intravenously. [place], [place] PROGRESS NOTE NAME: GRACIELAROCKY UNIT #: [id number] ROOM: 419 DOCTOR: BARBARA FELIPE MD BIRTHDATE: [birth year] BARBARA FELIPE MD CM:PNTRANS 1204 BARBARA FELIPE MD 10/13/18 0237 interface
--- NOTE | ~2018-10-09 | EKG ---
[place], [place] ELECTROCARDIOGRAM REPORT NAME: ROCKY OWENS UNIT #: [id number] ROOM: 419 DOCTOR: CAREN DRAFT REPORT BIRTHDATE: [birth year] [facility] Test Date: 2018-10-10 Test Time: 00:14:19 Pat Name: ROCKY OWENS Department: Room: 419 1 Gender: F Senior Data Modeler: Vane Pichardo : 1935 Requested By: TRACY HARDWICK Order Number: [id number] Reading MD: Devi Varela MD Measurements Intervals [place] Rate: 74 P: 66 GA: 175 QRS: -32 QRSD: 102 T: 65 QT: 437 QTc: 485 Interpretive Statements Sinus rhythm LVH with secondary repolarization abnormality Compared to ECG 08/12/2018 11:09:39 Left ventricular hypertrophy now present Inferior NM, old Early repolarization now present Left-axis deviation no longer present Electronically Signed On 10-12-2018 15:28:49 PST by Devi Varela MD CM:EKGRPT:ELECTROCARDIOGRAM REPORT 0014 1528 TRACY BEVERLY DRAFT REPORT TRACY HARDWICK DO
--- NOTE | ~2018-10-09 | CON ---
[place], [place] REPORT OF CONSULTATION NAME: ROCKY OWENS [facility] #: [id number] UNIT #: [id number] ROOM: 419 DOCTOR: LESA MANTEMO BIRTHDATE: [birth year] DOS: 10/10/2018 HISTORY OF PRESENT ILLNESS: An 82-year-old female who came from the assisted facility. The patient has history of a Zenker's diverticulum, PEG tube placement. The patient was in congestive heart failure with significant leg edema and hence we were consulted. The last echocardiogram showed a good ejection fraction. The patient is a very poor historian. The patient apparently was not eating well. CT of the abdomen and pelvis showed pleural effusion, moderate ascites, bilateral nonobstructing kidney stones. The patient is also on antibiotics. PAST MEDICAL HISTORY: History of aortic stenosis, aspiration pneumonia, atrial fibrillation, chronic respiratory failure, COPD, dyslipidemia, gastroesophageal reflux disease, history of non-ST elevation myocardial infarction. Home oxygen therapy. PAST SURGICAL HISTORY: Stent placed in 06/2018, a history of a decompression of the median nerve, history of vertebroplasty, and history of PEG tube placement. SOCIAL HISTORY: Not a smoker, not an alcoholic. FAMILY HISTORY: Not contributory. ALLERGIES: GABAPENTIN. HOME MEDICATIONS: Amiodarone, aspirin, carvedilol, clopidogrel, hydralazine, isosorbide, Zaroxolyn, spironolactone, and torsemide. REVIEW OF SYSTEMS: Somewhat limited. CONSTITUTIONAL: No fever, no chills. Does report weight loss. CARDIOVASCULAR: Reports lower extremity edema. RESPIRATORY: Does have some dyspnea on exertion. ABDOMEN: Reports abdominal pain and increasing in girth. NEUROLOGIC: She reports intermittent confusion. PHYSICAL EXAMINATION: VITAL SIGNS: Blood pressure today is 118/60, heart rate is 80. HEENT: Elevated JVD. LUNGS: Diminished breath sounds. HEART: Sounds are regular. ABDOMEN: Soft, nontender. EXTREMITIES: About 2+ edema. NEUROLOGIC: Stable. LABORATORY DATA: Sodium 144, potassium 4.3, creatinine is 3.5, liver functions are normal. BNP is significantly elevated. Hemoglobin 9.3, hematocrit within normal limits. A CAT scan showed intra-abdominal ascites. Chest x-ray showed mild pulmonary edema. The last echo showed a good ejection fraction. IMPRESSION: Acute on chronic diastolic heart failure, acute renal failure, [place], [place] REPORT OF CONSULTATION NAME: ROCKY OWENS UNIT #: [id number] ROOM: 419 DOCTOR: TEMO MCFADDEN MD BIRTHDATE: [birth year] ascites, abdominal pain, dehydration, hematuria, Zenker's diverticulum, chronic diastolic heart failure. RECOMMENDATIONS: As ordered. Agree with IV diuretics, strict I's and O's. Monitor the renal function very closely. Probable 1500 mL fluid restriction and I will follow up. TEMO MCFADDEN MD CM:CONSTR:REPORT OF CONSULTATION 1202 10/27/18 0955 interface
--- NOTE | ~2018-10-09 | EKG ---
[place], [place] ELECTROCARDIOGRAM REPORT NAME: ROCKY OWENS UNIT #: [id number] ROOM: 419 DOCTOR: CAREN DRAFT REPORT BIRTHDATE: [birth year] [facility] Test Date: 2018-10-10 Test Time: 03:09:17 Pat Name: ROCKY OWENS Department: Room: 419 1 Gender: F Egg Crater: Vane Pichardo : 1935 Requested By: TRAYC HARDWICK Order Number: [id number] Reading MD: Devi Varela MD Measurements Intervals [place] Rate: 74 P: 80 IN: 120 QRS: -28 QRSD: 113 T: 75 QT: 435 QTc: 483 Interpretive Statements Sinus rhythm LVH with secondary repolarization abnormality Baseline wander in lead(s) II,III,aVF Compared to ECG 08/12/2018 11:09:39 Left ventricular hypertrophy now present Early repolarization now present Left-axis deviation no longer present Electronically Signed On 10-12-2018 15:30:16 PST by Devi Varela MD CM:EKGRPT:ELECTROCARDIOGRAM REPORT [id number] TRAYC BEVERLY DRAFT REPORT TRACY HARDWICK DO
--- NOTE | ~2018-10-09 | PR ---
[place], [place] PROGRESS NOTE [facility] [id number] UN[facility] #: [id number] ROOM: 419 DOCTOR: TEMO MCFADDEN MD BIRTHDATE: [birth year] DOS: SUBJECTIVE: The patient is an 82-year-old. The patient was seen by Dr. Samuels yesterday, continue to be lethargic. REVIEW OF SYSTEMS: Limited because of the lethargy. OBJECTIVE: VITAL SIGNS: Blood pressure is 120/47. She is arousable. Heart rate is well controlled at 75. Blood pressure as mentioned sinus rhythm. NECK: Supple, no JVD. LUNGS: Diminished breath sounds. No respiratory distress. HEART: Regular rate and rhythm, soft systolic murmur. EXTREMITIES: About 2+ pitting edema. NEUROLOGIC: Lethargic. LABORATORY DATA: Sodium 145, potassium 3.3. Hemoglobin 7.9, hematocrit 25.9. IMPRESSION AND PLAN: 1. Severe protein-calorie malnutrition. 2. Acute on chronic renal failure. 3. Urinary tract infection. 4. Lethargy. 5. Ascites. 6. The patient is on IV antibiotics and IV diuretics. 7. GI is also following. 8. Strict I's and O's. 9. Condition is guarded. TEMO MCFADDEN MD CM:PNTRANS [id number] TEMO MCFADDEN MD 10/13/18 0750 interface
--- NOTE | ~2018-10-09 | PR ---
[place], [place] PROGRESS NOTE NAME[facility] OWENS [facility] [id number] UNIT #: [id number] ROOM: 419 DOCTOR: TEMO MCFADDEN MD BIRTHDATE: [birth year] DOS: 10/11/2018 SUBJECTIVE: The patient seen and evaluated today. She is awake and alert, responsive. No nausea, no vomiting. The patient states her abdominal pain is significantly improved. The patient complains of cough and sputum production. OBJECTIVE: VITAL SIGNS: Blood pressure is 130/57 and pulse rate is 86. HEENT: Unremarkable. NECK: Supple, no JVD. LUNGS: Clear. HEART: Sounds are regular. ABDOMEN: Soft, positive bowel sounds. PEG tube in place. EXTREMITIES: About 1-2+ edema. NEUROLOGIC: Stable. LABORATORY DATA: Sodium 146, potassium 3.1, BUN 77, creatinine is 3.4. Hemoglobin and hematocrit 8.4 and 27.1. IMPRESSION AND PLAN: Acute on chronic renal failure, abdominal pain, urinary tract infection, ascites, and gastroparesis. RECOMMENDATIONS: I agree with the present management. Continue IV diuretics as ordered. Dr. Blum consult is pending. Continue the antibiotics for urinary tract infection and will follow up. TEMO MCFADDEN MD CM:PNTRANS [id number] TEMO MCFADDEN MD 10/11/18 1209 interface
--- NOTE | ~2018-10-09 | CON ---
[place], [place] REPORT OF CONSULTATION [id number] UN[facility] #: [id number] ROOM: 419 DOCTOR: SENAIT LEGER MD BIRTHDATE: [birth year] DOS: 10/10/2018 REASON FOR CONSULTATION: Acute kidney injury. HISTORY OF PRESENT ILLNESS: The patient is an 82-year-old female. She has history of Zenker's diverticulum, GERD, aortic stenosis, atrial fibrillation, chronic kidney disease. The patient was brought to the hospital. It seems she was brought in due to abdominal pain. She recently was in the hospital and we did see her for evaluation of acute kidney injury that appeared to be related to a prerenal/acute tubular necrosis like picture. She had improvement in her renal function with IV fluids and holding of diuretics. Her baseline creatinine is not clear. It seems to be somewhere in the low 1s, but recently appears to have been somewhat higher. She presented with a creatinine over 3 once again and was with anasarca and hypoalbuminemia. Again, her abdominal pain was the biggest issue that brought her in the hospital last time. CT was done without contrast, which did not show any renal obstruction. The G-tube appear to be in place. She has an interval increase in her abdominal ascites and worsening subcutaneous edema with a small left effusion. It seems she was started on IV diuretics and has a [place] in place and has adequate urine. Her appetite remains poor. She has had some nausea. She denies shortness of breath. She was on room air. ALLERGIES: Listed to GABAPENTIN. HOME MEDICATIONS: Included amiodarone, aspirin, Coreg, Plavix, folic acid, hydralazine, isosorbide, metolazone, Remeron, omeprazole, Aldactone, Demadex. PAST MEDICAL HISTORY: 1. Chronic kidney disease as stated above with acute kidney injury. 2. Aortic stenosis. 3. Aspiration pneumonia. 4. Ataxia. 5. Atrial fibrillation. 6. Colonic diverticulum. 7. Compression fracture. 8. Chronic obstructive pulmonary disease. 9. Coronary artery disease. 10. Diastolic dysfunction. 11. Hyperlipidemia. 12. Esophageal erosions and esophagitis. 13. GERD. 14. Gout. 15. DVT. 16. Hypertension. 17. Anemia. 18. Obstructive sleep apnea. 19. Osteoarthritis and osteoporosis. 20. Zenker's diverticulum. 21. History of PEG tube with recent displacement. 22. History of coronary stenting. [place], [place] REPORT OF CONSULTATION NAME: ROCKY OWENS UNIT #: [id number] ROOM: 419 DOCTOR: SENAIT LEGER MD BIRTHDATE: [birth year] 23. Cataract surgery. 24. History of vertebroplasty. 25. Cholecystectomy. FAMILY HISTORY: Negative for chronic kidney disease, otherwise noncontributory. SOCIAL HISTORY: No tobacco, alcohol or illicit drugs. REVIEW OF SYSTEMS: As per HPI, otherwise a 10-point review of systems was reviewed and was negative. PHYSICAL EXAMINATION: VITAL SIGNS: Temperature 97, pulse 70, respiration 18, blood pressure 108/40. GENERAL: She is awake, alert, comfortable, in no acute distress. HEENT: Shows no JVD. Sclerae are anicteric. Mucous membranes appear dry. Pharynx is clear. NECK: Supple. Trachea is midline. There is no neck lymphadenopathy or thyromegaly. LUNGS: Diminished breath sounds with no wheezes. No tactile fremitus. She is not using accessory muscles of respiration. HEART: S1, S2. No rub, thrill or gallop. ABDOMEN: Soft and nontender. There is no organomegaly. There is no rebound or guarding. There is no CVA tenderness. EXTREMITIES: Had 2+ edema. There is no lower extremity lymphadenopathy. Distal pulses are present. SKIN: Showed no overt rash. There was no petechia or purpura. Skin temperature is warm. NEUROLOGIC: She was awake, alert. She was following commands. Cranial nerves are intact. LABORATORY DATA: Hemoglobin 8.4, white count of 6.9, platelets 113. Urine culture was having gram-negative bacilli. BUN 74, creatinine 3.5, glucose 80. Sodium 146, potassium 3.8, CO2 of 33, calcium 8.6, phosphorus 3.3, albumin 1.8. IMPRESSION: 1. Acute kidney injury on chronic kidney disease with a baseline creatinine that appears to be in the low 1s range. However, she may have more worsening baseline renal function at this point. She likely has EDELMIRA related to a prerenal/acute tubular necrosis like picture. 2. Abdominal pain with poor p.o. intake. 3. Edema with severe hypoalbuminemia/malnutrition. 4. Elevated LFTs. 5. Urinary tract infection. 6. Anemia. 7. Thrombocytopenia. 8. Mild hyponatremia. PLAN: 1. Continue ongoing supportive care. Follow labs while in the hospital. 2. The patient's volume status is not clear. I think she likely is [place], [place] REPORT OF CONSULTATION NAME: ROCKY OWENS UNIT #: [id number] ROOM: 419 DOCTOR: SENAIT LEGER MD BIRTHDATE: [birth year] intravascularly volume depleted. She has a very low albumin and her edema is likely a reflection of this. Would be cautious with aggressive diuretics. If her creatinine goes up, we would hold diuretics and monitor her progress. Encourage oral intake. Encourage oral fluids. 3. Would avoid Lovenox in the setting of advanced renal dysfunction. Recommend subcutaneous heparin for DVT prophylaxis. 4. Dose meds for current creatinine clearance. 5. Replace electrolytes as needed. Thank you for this consultation. SENAIT LEGER MD CM:CONSTR:REPORT OF CONSULTATION 1329 10/11/18 0829 interface
[~2018-10-09 16:31] MED LIST changes: +ALDACTONE50 M1 PO; +DEMADEX20 M1 PO; +ISOSORBIDE DINI PO; +MARINOL10 MG PO; +OMEPRAZOLE MAGN20 MG PO; +REMERON15 M2 PO; +Zaroxolyn,Diul2.5 MG PO
[2018-10-09 16:36] VITALS: BP 116/53
[2018-10-09 17:26] LABS: BASO % 0.1 % (0.0-1.0); HEMATOCRIT 30.1 % (37.0-47.0); HEMOGLOBIN 9.3 g/dl (12.0-16.0); LYMPH # 0.7 10*3/uL (1.3-4.4); LYMPH % 9.8 % (27.0-41.0); MEAN CELL VOLUME 102.4 fl (81.0-99.0); MEAN CORPUSCULAR HGB 31.6 pg (27.0-31.0); MEAN CORPUSCULAR HGB CONC 30.9 g/dl (33.0-37.0); MEAN PLATELET VOLUME 11.9 fl (9.6-12.3); MONO # 0.3 10*3/uL (0.1-1.0); MONO % 3.4 % (3.0-9.0); NEUT # 6.5 10*3/uL (2.3-7.9); NEUT % 86.4 % (47.0-73.0); PLATELET COUNT AUTOMATED 140 10*3/uL (130-400); RED BLOOD COUNT 2.94 10*6/uL (4.10-5.10); RED CELL DISTRI WIDTH 17.9 % (0-14.5); WHITE BLOOD COUNT 7.6 10*3/uL (4.8-10.8)
[2018-10-09 17:36] LABS: ACT PARTIAL THROMBO TIME 26.2 SECONDS (20.8-31.5); INTERNATIONAL NORM RATIO 1.2 (2.0-3.5)
[2018-10-09 17:45] VITALS: BP 106/62
[2018-10-09 17:48] LABS: ALBUMIN 1.9 gm/dl (3.1-4.5); CREATININE 3.58 mg/dL (0.55-1.02); POTASSIUM 4.3 mmol/L (3.5-5.1); TOTAL PROTEIN 6.3 gm/dL (6.4-8.2)
[2018-10-09 17:53] LABS: TROPONIN I 0.069 ng/ml (<0.045)
[2018-10-09 18:00] LABS: COLOR YELLOW (YELLOW)
[2018-10-09 18:01] LABS: BILIRUBIN NEGATIVE (NEGATIVE); BLOOD 3+ (NEGATIVE); GLUCOSE NEGATIVE (NEGATIVE); KETONE NEGATIVE (NEGATIVE); PH 8.5 (5.0-9.0)
[2018-10-09 18:02] LABS: LEUKO ESTERASE 3+ (NEGATIVE); NITRITE NEGATIVE (NEGATIVE); UROBILINOGEN 0.2 E.U./dl (0.2-1.0)
[2018-10-09 18:06] LABS: BACTERIA 4+; WBC TNTC wbc/hpf (0-5)
[2018-10-09 18:07] LABS: CLARITY TURBID (CLEAR)
--- NOTE | 2018-10-09 18:44 | NUR ---
WOUND PHOTO OF PATIENTS COCCYX TAKEN.
[2018-10-09 19:02] VITALS: BP 113/45
[2018-10-09 19:35] VITALS: BP 118/46
--- NOTE | 2018-10-09 19:35 | NUR ---
A 82, admitted to , under the services of JEREMÍAS Franz DO with a diagnosis of LITTLE SHELL TRIBE,ARF,ABDOMINAL PAIN. Chief complaint is WEAKNESS AND ABDOMINAL PAIN. Patient arrived via stretcher from ER. Monitor applied. Initial assessment completed. Vital signs taken and recorded. JEREMÍAS FRANZ DO notified of admission to the unit. Orders received. See assessment for past medical history, medications and allergies. Patient and/or family oriented to unit. [facility] visitation policy reviewed. Clothing/patient valuable form completed. EDWIGE MOORE
--- NOTE | 2018-10-09 20:28 | NUR ---
MED LIST VERIFIED WITH LIST OF MEDS FROM [facility].
[2018-10-10] VITALS: BP 113/47
--- NOTE | 2018-10-10 00:38 | NUR ---
DR. PEREZ NOTIFIED OF CRITICAL TROPONIN OF 0.083. ALSO NOTIFIED OF AREA AN COCCYX.
--- NOTE | 2018-10-10 04:59 | NUR ---
SPOKE WITH JUSTEN AT [facility] REGARDING CONSULT ORDER FOR .
--- NOTE | 2018-10-10 05:47 | NUR ---
SPOKE WITH DR. PEREZ REGARDING CLARIFICATION OF LASIX ORDER.
[2018-10-10 06:11] LABS: BASO % 0.1 % (0.0-1.0); EOS # 0.1 10*3/uL (0.0-0.4); EOS % 0.7 % (1.0-4.0); HEMATOCRIT 26.8 % (37.0-47.0); HEMOGLOBIN 8.4 g/dl (12.0-16.0); LYMPH # 1.1 10*3/uL (1.3-4.4); LYMPH % 16.6 % (27.0-41.0); MEAN CELL VOLUME 101.9 fl (81.0-99.0); MEAN CORPUSCULAR HGB 31.9 pg (27.0-31.0); MEAN CORPUSCULAR HGB CONC 31.3 g/dl (33.0-37.0); MEAN PLATELET VOLUME 10.9 fl (9.6-12.3); MONO # 0.4 10*3/uL (0.1-1.0); MONO % 5.1 % (3.0-9.0); NEUT # 5.3 10*3/uL (2.3-7.9); NEUT % 76.9 % (47.0-73.0); PLATELET COUNT AUTOMATED 113 10*3/uL (130-400); RED BLOOD COUNT 2.63 10*6/uL (4.10-5.10); RED CELL DISTRI WIDTH 17.8 % (0-14.5); WHITE BLOOD COUNT 6.9 10*3/uL (4.8-10.8)
[2018-10-10 06:34] LABS: ALBUMIN 1.8 gm/dl (3.1-4.5); CREATININE 3.48 mg/dL (0.55-1.02); PHOSPHOROUS 3.3 mg/dL (2.5-4.9); POTASSIUM 3.8 mmol/L (3.5-5.1); TOTAL PROTEIN 5.6 gm/dL (6.4-8.2)
[2018-10-10 06:36] LABS: FREE T4 2.03 ng/dl (0.76-1.46)
[2018-10-10 06:42] LABS: THYROID STIM HORMONE (HS) 1.35 uIU/ml (0.358-4.75)
--- NOTE | 2018-10-10 06:42 | NUR ---
DR PEREZ CALLED WITH CRITICAL TROPONIN OF 0.085
--- NOTE | 2018-10-10 06:52 | NUR ---
MESSAGE LEFT ON 'S ANSWERING MACHINE REGARDING COMSULT ORDER.
--- NOTE | 2018-10-10 07:48 | NUR ---
DR PAUL NOTIFIED THAT ISOSORBIDE DINITRATE DOSE NEEDS CLARIFIED PER PHARMACY REQUEST.
[2018-10-10 08:00] VITALS: BP 117/50
[2018-10-10 08:14] LABS: VITAMIN D, 25-HYDROXY 48.3 ng/mL (30-100)
--- NOTE | 2018-10-10 10:51 | NUR ---
DR FELIPE PAGED VIA ANSWERING SERVICE TO MAKE HIM AWARE OF NEW CONSULT ORDER.
--- NOTE | 2018-10-10 10:53 | NUR ---
DR MCFADDEN,WHO IS COVERING FOR DR FELIPE TODAY, RETURNED CALL AND STATED HE WILL BE IN TODAY TO SEE PT.
[2018-10-10 12:00] VITALS: BP 108/40
[2018-10-10 16:00] VITALS: BP 118/53
[2018-10-10 20:00] VITALS: BP 96/60
[2018-10-11] VITALS (7 sets, daily range): BP systolic 82–138; BP diastolic 46–57
[2018-10-11 06:09] LABS: CREATININE 3.47 mg/dL (0.55-1.02); POTASSIUM 3.1 mmol/L (3.5-5.1)
[2018-10-11 06:14] LABS: BASO % 0.2 % (0.0-1.0); EOS # 0.1 10*3/uL (0.0-0.4); EOS % 1.4 % (1.0-4.0); HEMATOCRIT 27.1 % (37.0-47.0); HEMOGLOBIN 8.4 g/dl (12.0-16.0); LYMPH # 0.7 10*3/uL (1.3-4.4); LYMPH % 10.9 % (27.0-41.0); MEAN CELL VOLUME 101.9 fl (81.0-99.0); MEAN CORPUSCULAR HGB 31.6 pg (27.0-31.0); MEAN PLATELET VOLUME 12.2 fl (9.6-12.3); MONO # 0.3 10*3/uL (0.1-1.0); MONO % 5.4 % (3.0-9.0); NEUT # 5.1 10*3/uL (2.3-7.9); NEUT % 81.6 % (47.0-73.0); PLATELET COUNT AUTOMATED 111 10*3/uL (130-400); RED BLOOD COUNT 2.66 10*6/uL (4.10-5.10); RED CELL DISTRI WIDTH 17.5 % (0-14.5); WHITE BLOOD COUNT 6.2 10*3/uL (4.8-10.8)
--- NOTE | 2018-10-11 10:58 | NUR ---
PT HAD MODERATE SIZED BM TODAY.
--- NOTE | 2018-10-11 16:00 | NUR ---
PHYSICAL THERAPY PT EVAL COMPLETED TODAY: FULL EVALUATION TO FOLLOW. RECOMMEND PT WHILE HERE TO ADDRESS DECREASED STRENGTH AND FUNCTIONAL MOBILITY. PT EVAL IS MODERATE COMPLEXITY BASED ON CHART REVIEW, TEST RESULTS AND EVALUATION: [id number]. D/C RECOMMENDATIONS ARE RETURN TO [facility] FOR SNF ONCE MEDICALLY STABLE. THANK YOU FOR REFERRAL CLAY SILVA PT
--- NOTE | 2018-10-11 19:54 | NUR ---
NOTIFIED DR. OROZCO OF LOW BP. HE STATES TO CHECK HER PRESSURE HOURLY. WILL CONTINUE TO MONITOR.
[2018-10-12] VITALS: BP 105/46
[2018-10-12 04:41] VITALS: BP 122/48
[2018-10-12 06:43] LABS: BASO % 0.2 % (0.0-1.0); EOS # 0.1 10*3/uL (0.0-0.4); EOS % 1.9 % (1.0-4.0); HEMATOCRIT 25.9 % (37.0-47.0); HEMOGLOBIN 7.9 g/dl (12.0-16.0); LYMPH # 0.9 10*3/uL (1.3-4.4); LYMPH % 15.9 % (27.0-41.0); MEAN CORPUSCULAR HGB 31.1 pg (27.0-31.0); MEAN CORPUSCULAR HGB CONC 30.5 g/dl (33.0-37.0); MEAN PLATELET VOLUME 11.9 fl (9.6-12.3); MONO # 0.3 10*3/uL (0.1-1.0); MONO % 5.9 % (3.0-9.0); NEUT # 4.4 10*3/uL (2.3-7.9); NEUT % 75.9 % (47.0-73.0); PLATELET COUNT AUTOMATED 112 10*3/uL (130-400); RED BLOOD COUNT 2.54 10*6/uL (4.10-5.10); RED CELL DISTRI WIDTH 17.5 % (0-14.5); WHITE BLOOD COUNT 5.7 10*3/uL (4.8-10.8)
--- NOTE | 2018-10-12 07:00 | NUR ---
PT ASLEEP. REPORT RECIEVED FROM ITZ BLANCO. RESPIRATIONS EASY AND NON-LABORED, NO S/S OF DISCOMFORT AT THIS TIME. WILL CONTINUE TO MONITOR.
[2018-10-12 07:03] LABS: CREATININE 3.43 mg/dL (0.55-1.02); POTASSIUM 3.3 mmol/L (3.5-5.1)
--- NOTE | 2018-10-12 07:19 | NUR ---
ROCKY OWENS [id number] Please refer to the physician's history and physical for past medical history, comorbid conditions, and allergies. Diagnosis: UTI ABDOMINAL PAIN DEHYDRATION Rene Score: 13,MODERATE RISK WOUND DESCRIPTIONS: Location of the wound: right buttocks Type of wound: stage 2 Thickness: Partial Size: 0.5cm x 2.0cm x 0.1cm Tunneling: none Undermining: none Sinus Tract: none Presence of Exudate: Serosanguineous Amount: Light Color: Red Odor: None Periwound Skin Appearance: Erythema, scarring Wound edges: approximated Pain (associated with wound): none at time of assessment How does patient state this happened? pt stated this area comes and goes. Abdominal folds and groin are pink in color. No open areas or drainage noted at time of assessment to abdominal folds and groin. No odor noted at time of assessment. Bilateral heels are red and blanchable at time of assessment. No open areas or drainage noted at time of assessment Surface the patient is resting on: Isoflex SKIN PREVENTION RECOMMENDATION: 1. Pressure redistribution support surface as appropriate 2. Elevate heels 3. Remove boots/TEDS every shift and reapply 4. Head of bed 30 degrees as tolerated 5. Assess nutrition and hydration 6. Manage moisture 7. Avoid the use of containment devices while in bed 8. Use absorptive products on surfaces limit layers of linens on bed 9. Turn and reposition every 1-2 hours in bed and every 1 hour in chair as tolerated 10. Weight shifts every 15 minutes while up in chair 11. Offloading with pillows or device to keep heels elevated off bed 12. Monitor skin at least every shift 13. Inspect under medical devices twice a day WOUND TREATMENT RECOMMENDATIONS: D/C unstageable guidelines to the coccyx. Cleanse abdominal folds and groin with soap and water and apply nystatin powder every 12 hours. Stage 2 guidelines: Cleanse right buttocks with nss and apply sureprep around the wound hydrogel to wound bed and cover with optifoam gentle. Wheelchair cushion when oob. Heel raiser pro boots while in bed to BLE's.
[2018-10-12 08:00] VITALS: BP 140/55
--- NOTE | 2018-10-12 09:00 | NUR ---
case management visits with patient, patient is short term skilled at [facility] and will return when medically stable, case management will follow
--- NOTE | 2018-10-12 09:38 | NUR ---
Dr. Wright notified of wound care recommendations.
[2018-10-12 12:00] VITALS: BP 150/63
--- NOTE | 2018-10-12 12:38 | NUR ---
patient comes from [facility] short term care. Faxed clincal updates and therapy to [facility] for review. Patient can return when medically stable for discharge.
--- NOTE | 2018-10-12 12:49 | NUR ---
24 HR CHART CHECK COMPELTE.
--- NOTE | 2018-10-12 12:55 | NUR ---
PHYSICAL THERAPY Patient is very lethargic with very little communication verbally and unable to wake fully. Patient shakes her head no when asked if she can participate in therapy session. Patient's RN JESS was informed of patient's unusual state she is in right now. No therapy provided for this reason today. ZOHRA GRADY BENEFITS ADVISOR
[2018-10-12 16:00] VITALS: BP 116/49
--- NOTE | 2018-10-12 18:45 | NUR ---
PTS SON STATED THAT SHE WAS COMPLAINING OF BACK PAIN. DR PAUL CALLED TO REQUEST PRN PAIN MEDICATION. ORDER FOR [facility]AHMAN RECIEVED.
[2018-10-12 20:00] VITALS: BP 102/41
--- NOTE | 2018-10-12 21:54 | NUR ---
[address] DAS FOR LOW BLOOD PRESSURE. PATIENT RESTING IN BED WITH NO S/S OF DISTRESS. NO NEEDS MADE. BED IN LOWEST POSITION, BED ALARM ON, CALL LIGHT IN REACH
[2018-10-13] VITALS: BP 126/47
--- NOTE | 2018-10-13 00:45 | NUR ---
24 HR chart check completed.
--- NOTE | 2018-10-13 03:34 | NUR ---
Recommend follow up for wound care in outpatient setting patient being discharge to another facility at this time.
[2018-10-13 06:23] LABS: BASO % 0.3 % (0.0-1.0); EOS # 0.2 10*3/uL (0.0-0.4); EOS % 2.3 % (1.0-4.0); HEMATOCRIT 27.9 % (37.0-47.0); HEMOGLOBIN 8.3 g/dl (12.0-16.0); LYMPH % 13.8 % (27.0-41.0); MEAN CORPUSCULAR HGB 30.6 pg (27.0-31.0); MEAN CORPUSCULAR HGB CONC 29.7 g/dl (33.0-37.0); MEAN PLATELET VOLUME 12.2 fl (9.6-12.3); MONO # 0.4 10*3/uL (0.1-1.0); MONO % 5.5 % (3.0-9.0); NEUT # 5.3 10*3/uL (2.3-7.9); NEUT % 77.5 % (47.0-73.0); PLATELET COUNT AUTOMATED 119 10*3/uL (130-400); RED BLOOD COUNT 2.71 10*6/uL (4.10-5.10); RED CELL DISTRI WIDTH 17.5 % (0-14.5); WHITE BLOOD COUNT 6.9 10*3/uL (4.8-10.8)
[2018-10-13 06:49] LABS: CREATININE 3.34 mg/dL (0.55-1.02); POTASSIUM 3.1 mmol/L (3.5-5.1)
[2018-10-13 08:00] VITALS: BP 157/61
--- NOTE | 2018-10-13 11:04 | NUR ---
Patient updated clincals faxed to [facility], notified facility of probable discharge.
[2018-10-13 12:00] VITALS: BP 97/53
--- NOTE | 2018-10-13 14:00 | NUR ---
PHYSICAL THERAPY Patient presented to therapy in sitting position in bedside chair with catheter and 2 liters of spO2 via nasal canula. Patient reports abdominal pain as usual. Patient agrees to therapy session. Patient was identified by name and . Patient performed STS from bedside chair with MAX A X 2. Patient performed ambulation with W/W and CGA X 1 with rolling chair follow and 2 liters of spO2 VIA NASAL CANULA for 12' x 1. Patient required verbal cues for upright posture and locking knees when in weight-bearing phase of gait. Patient transferred back to sitting in bedside chair with MOD A X 1. Patient sat in bedside chair and performed bilateral LE therex in all planes of movement 2 x 10 reps each for strengthening in order to improve patient's functional mobility. Patient was left in bedside chair with call light within reach, O2 connected to wall with 2 liters of spO2, and tray table in front of patient with lunch. PATIENT IS MAX A X 2 TO TRANSFER SIT TO STAND OUT OF BEDSIDE CHAIR. Patient was 1:1 with this VICE PRESIDENT [employer] for 20 minutes total.
[2018-10-13 16:00] VITALS: BP 108/45
[2018-10-13 20:00] VITALS: BP 127/56
[2018-10-14] VITALS: BP 154/70
[2018-10-14 06:23] LABS: BASO % 0.1 % (0.0-1.0); EOS # 0.3 10*3/uL (0.0-0.4); EOS % 3.8 % (1.0-4.0); HEMOGLOBIN 8.4 g/dl (12.0-16.0); LYMPH # 1.2 10*3/uL (1.3-4.4); LYMPH % 17.2 % (27.0-41.0); MEAN CELL VOLUME 103.3 fl (81.0-99.0); MEAN PLATELET VOLUME 11.9 fl (9.6-12.3); MONO # 0.5 10*3/uL (0.1-1.0); MONO % 6.8 % (3.0-9.0); NEUT % 71.5 % (47.0-73.0); PLATELET COUNT AUTOMATED 118 10*3/uL (130-400); RED BLOOD COUNT 2.71 10*6/uL (4.10-5.10); RED CELL DISTRI WIDTH 17.4 % (0-14.5); WHITE BLOOD COUNT 6.9 10*3/uL (4.8-10.8)
[2018-10-14 06:41] LABS: CREATININE 3.29 mg/dL (0.55-1.02); POTASSIUM 3.6 mmol/L (3.5-5.1)
[2018-10-14 08:00] VITALS: BP 137/51
--- NOTE | 2018-10-14 08:27 | NUR ---
Medicated with zofran iv per prn order for complaints of nausea.
--- NOTE | 2018-10-14 09:00 | NUR ---
case management visits with patient, patient somewhat confused at this time, daughter present, daughter stated that she would return to [facility] upon discharge. no other needs at this time
--- NOTE | 2018-10-14 10:26 | NUR ---
Medicated with phenergan iv per prn order for nausea.
--- NOTE | 2018-10-14 11:03 | NUR ---
PHYSICAL THERAPY Patient presented to therapy in sitting position in bed side chair with report of wanting to go home and feeling better. Patient is on 2 liters of spO2 via nasal canula. Patient agrees to therapy session. Patient was identified by name and . Patient performed sit to stand transfer with MAX A X 2. Patient ambulated with W/W and CGA X 1 with rolling chair follow and 2 liters of spO2 via nasal canula with verbal cues for extending/ locking knees and upright posture. Patient transferred back to bedside chair with MIN A X 1 with verbal cues for putting hands back on armrests of chair. Patient sat in bedside chair and performed bilateral LE THER EX x 15 reps in all planes of movement for strengthening the LEs in order to improve patient's functional mobility. Patient was left in sitting position with call light within reach, Chair Alarm tested and attached, and O2 connected to wall with 2 liters of spO2. Patient was 1:1 with this LOGISTICS COORDINATOR for 24 minutes. ZOHRA GRADY LOGISTICS COORDINATOR
[2018-10-14 12:00] VITALS: BP 137/51
[2018-10-14 16:00] VITALS: BP 103/50
--- NOTE | 2018-10-14 19:30 | NUR ---
BEDSIDE REPORT OBTAINED FROM DAY SHIFT RN. PT IS ASLEEP IN BED AT THIS TIME WITH NO S/S OF PAIN OR DISTRESS. RESPIRATIONS ARE EASY AND NONLABORED ON 2L NC. BED IS LOCKED AND IN THE LOWEST POSITION. WILL CONTINUE TO MONITOR.
[2018-10-14 20:00] VITALS: BP 105/46
[2018-10-14 20:48] VITALS: BP 121/60
--- NOTE | 2018-10-14 22:59 | NUR ---
24HR CHART CHECK COMPLETE.
[2018-10-15] VITALS: BP 107/44
[2018-10-15 06:09] LABS: BASO % 0.2 % (0.0-1.0); EOS # 0.2 10*3/uL (0.0-0.4); EOS % 3.3 % (1.0-4.0); HEMATOCRIT 26.6 % (37.0-47.0); LYMPH # 1.1 10*3/uL (1.3-4.4); LYMPH % 17.6 % (27.0-41.0); MEAN CELL VOLUME 102.7 fl (81.0-99.0); MEAN CORPUSCULAR HGB 30.9 pg (27.0-31.0); MEAN CORPUSCULAR HGB CONC 30.1 g/dl (33.0-37.0); MEAN PLATELET VOLUME 11.5 fl (9.6-12.3); MONO # 0.4 10*3/uL (0.1-1.0); MONO % 6.1 % (3.0-9.0); NEUT # 4.6 10*3/uL (2.3-7.9); NEUT % 72.2 % (47.0-73.0); PLATELET COUNT AUTOMATED 111 10*3/uL (130-400); RED BLOOD COUNT 2.59 10*6/uL (4.10-5.10); RED CELL DISTRI WIDTH 17.5 % (0-14.5); WHITE BLOOD COUNT 6.4 10*3/uL (4.8-10.8)
[2018-10-15 06:41] LABS: CREATININE 3.46 mg/dL (0.55-1.02)
[2018-10-15 06:43] LABS: POTASSIUM 4.5 mmol/L (3.5-5.1)
[2018-10-15 08:00] VITALS: BP 126/44
--- NOTE | 2018-10-15 09:19 | NUR ---
In to see patient regarding order for hospice. Explained to patients daughter that returning to nursing facility with hospice and without medicaid product she would be responsible for the room and board of approximately $170.00 per day. She stated they were working on getting [place] medicaid but she is unable to do that because her mother owns property in [place]. She would like to have patient return to [facility] under her medicare without hospice for now so she can continue to work on finding a facility in [place] and get [place] medicaid. Message sent to Kiersten at [facility], waiting for response.
--- NOTE | 2018-10-15 10:59 | NUR ---
PHYSICAL THERAPY Patient was seen this am 1:1 for therapy visit and was supine in bed following late breakfast upon therapist arrival. Patient was a little IQUGMIUT and demonstrated a few bouts of increased confusion during treatment this morning. Patient transfers supine to sit EOB with Min/Mod A, tolerating EOB sit x several minutes to collect herself, CGA x 1. Patient then transfers sit to stand with Mod A, ambulating with use of wh walker, 30'x 1, Min A, demonstrating very slow lida, decreased stride and unsteady balance during 180 turn around. Patient needed v/c to improve stride with increased upright posture and returned to bedside chair with mild fatigue noted. Patient remained in chair with call light, tray table, body alarm and Bible recordings. Will continue per POC as tolerated, total treatment time 13 minutes. Young Sharif, TITLE CURATOR
--- NOTE | 2018-10-15 11:38 | NUR ---
Patient updated clinicals faxed to [facility] for review, patient is ok to return when medically stable for discharge.
[2018-10-15 12:00] VITALS: BP 102/47
--- NOTE | 2018-10-15 13:47 | NUR ---
PATIENT SITTING UP IN CHAIR AT THIS TIME. NO S/S OF DISTRESS. NASAL CANNULA IN PLACE IN NOSE. PATIENT IS MILDLY CONFUSED. PATIENT'S CALL LIGHT IS WITHIN REACH.
[2018-10-15] MEDS ORDERED: Isordil20 MG PO (14:17)
[2018-10-15] MEDS ORDERED: DEMADEX20 M1 PO (14:17)
--- NOTE | 2018-10-15 14:25 | NUR ---
PATIENT IS REFUSING ADAMANTLY AGAINST DISCHARGE PHOTOS OF HER WOUND.
--- NOTE | 2018-10-15 14:36 | NUR ---
Patient is discharged to [facility], transportation scheduled with [facility] for 3:30. Nh, nursing and daughter all notified.
--- NOTE | 2018-10-15 15:33 | NUR ---
Discharge instructions reviewed with patient/family. Patient receptive and verbalizes understanding. Follow-up care arranged. Written instructions given to patient/family. PATIENT TAKEN FROM UNIT BY [facility]. NO S/S OF DISTRESS. RANDY SWANSON
--- NOTE | 2018-10-15 16:01 | NUR ---
PHYSICAL THERAPY CO-SIGN I approve of the Phyical Therapy notes written above. MARTY APARICIO PT
== END 2018-10-15 15:33 | disposition other institution (70) | DRG 682 ==
LOC: ED 16:31 → 4E 18:36 → EDHOLD 18:36 → 4E 18:55
PROVIDERS: Emergency Medicine; Family Medicine; Internal Medicine; ADMIT Internal Medicine
DX: N17.0 Acute kidney failure with tubular necrosis (principal); I50.33 Acute on chronic diastolic (congestive) heart failure; E43 Unspecified severe protein-calorie malnutrition; I13.0 Hypertensive heart and chronic kidney disease with heart failure and stage 1 through stage 4 chronic kidney disease, or unspecified chronic kidney disease; R18.8 Other ascites; E87.2 Acidosis; J96.11 Chronic respiratory failure with hypoxia; N30.01 Acute cystitis with hematuria; E87.1 Hypo-osmolality and hyponatremia; E87.3 Alkalosis; G93.40 Encephalopathy, unspecified; Z68.28 Body mass index [BMI] 28.0-28.9, adult; N18.4 Chronic kidney disease, stage 4 (severe); Z66 Do not resuscitate; Z51.5 Encounter for palliative care; K31.84 Gastroparesis; K22.5 Diverticulum of esophagus, acquired; N20.0 Calculus of kidney; K21.9 Gastro-esophageal reflux disease without esophagitis; I27.20 Pulmonary hypertension, unspecified; I50.82 Biventricular heart failure; I35.0 Nonrheumatic aortic (valve) stenosis; G47.33 Obstructive sleep apnea (adult) (pediatric); E87.6 Hypokalemia; D53.9 Nutritional anemia, unspecified; E86.0 Dehydration; R74.0 Nonspecific elevation of levels of transaminase and lactic acid dehydrogenase [LDH]; R13.10 Dysphagia, unspecified; I48.2 Chronic atrial fibrillation; N28.1 Cyst of kidney, acquired; J43.8 Other emphysema; K29.70 Gastritis, unspecified, without bleeding; D47.3 Essential (hemorrhagic) thrombocythemia; M19.90 Unspecified osteoarthritis, unspecified site; M81.0 Age-related osteoporosis without current pathological fracture; I25.10 Atherosclerotic heart disease of native coronary artery without angina pectoris; E78.5 Hyperlipidemia, unspecified; Z96.1 Presence of intraocular lens; M10.9 Gout, unspecified; Z86.718 Personal history of other venous thrombosis and embolism; I25.2 Old myocardial infarction; Z99.81 Dependence on supplemental oxygen; Z95.5 Presence of coronary angioplasty implant and graft; Z90.49 Acquired absence of other specified parts of digestive tract; Z98.41 Cataract extraction status, right eye; Z80.9 Family history of malignant neoplasm, unspecified; Z88.8 Allergy status to other drugs, medicaments and biological substances; Z79.82 Long term (current) use of aspirin